=== PATIENT | male | born 1980 | race Caucasian/White ===

== ENCOUNTER 2023-01-02 09:18 | Outpatient (REF) | payer MEDICAID, SELFPAY ==
[2023-01-02 11:25] LABS: MANUAL DIFF FLAG NO
[2023-01-02 11:35] LABS: Basophils Absolute Auto 0.1 X10*3/uL (0.0-0.2); Basophils Percent Auto 0.7 % (0-2); Eosinophils Absolute Auto 0.2 X10*3/uL (0.0-0.4); Eosinophils Percent Auto 2.2 % (0-4); Hematocrit 41.7 % (42.0-52.0); Hemoglobin 14.1 g/dl (14.0-18.0); Imm Gran Abs Auto 0.03 X10*3/uL (0.00-0.03); Imm Gran Pct Auto 0.4 % (0.0-0.4); Lymphocytes Absolute Auto 2.9 X10*3/uL (1.2-4.9); Lymphocytes Percent Auto 40.4 % (20-40); Mean Corpuscular HGB Conc 33.8 g/dl (31.0-36.0); Mean Corpuscular Hemoglobin 31.4 pg (27.0-33.0); Mean Corpuscular Volume 92.9 fL (80.0-98.0); Mean Platelet Volume 10.8 fL (9.4-12.4); Monocytes Absolute Auto 0.5 X10*3/uL (0.1-1.2); Monocytes Percent Auto 6.6 % (2-11); Neutrophils Absolute Auto 3.6 x10*3/uL (2.0-8.3); Neutrophils Percent Auto 49.7 % (45-73); Platelet Count 224 X10*3/uL (160-400); Red Blood Count 4.49 X10*6/uL (4.60-5.80); Red Cell Distribution Width 12.6 % (11.0-16.0); White Blood Count 7.2 X10*3/uL (4.8-10.8)
[2023-01-02 12:03] LABS: Alanine Aminotransferase 36 U/L (0-40); Albumin Level 4.1 g/dL (3.5-5.0); Alkaline Phosphatase 91 U/L (39-117); Aspartate Amino Transferase 27 U/L (5-37); Bilirubin Direct 0.1 mg/dL (0.0-0.5); Bilirubin Total 0.3 mg/dL (0.0-1.0); Lipase 36 U/L (8-78); Total Protein 7.1 g/dL (6.5-8.0)
[2023-01-02 12:10] LABS: Amylase 49 U/L (28-100)
== END 2023-01-02 09:19 | disposition home or self-care (01) ==
LOC: HO.HHCL 09:18
PROVIDERS: Visit Provider Family Medicine
DX: Z00.00 Encounter for general adult medical examination without abnormal findings (principal)
CPT/HCPCS: 36415; 80076; 82150; 83690; 85025

== ENCOUNTER 2023-03-13 13:53 | Outpatient (REF) | payer MEDICAID, SELFPAY | END 2023-03-13 13:54 | disposition home or self-care (01) | LOC: HO.LNP 13:53 | PROVIDERS: Visit Provider Family Medicine | DX: R10.13 Epigastric pain (principal) | CPT/HCPCS: 87338 ==

== ENCOUNTER 2023-07-15 11:43 | Outpatient (REF) | payer MEDICAID, SELFPAY ==
[2023-07-15 13:27] LABS: MANUAL DIFF FLAG NO
[2023-07-15 13:33] LABS: Basophils Absolute Auto 0.1 X10*3/uL (0.0-0.2); Basophils Percent Auto 0.9 % (0-2); Eosinophils Absolute Auto 0.2 X10*3/uL (0.0-0.4); Eosinophils Percent Auto 2.8 % (0-4); Hematocrit 43.7 % (42.0-52.0); Hemoglobin 14.9 g/dl (14.0-18.0); Imm Gran Abs Auto 0.03 X10*3/uL (0.00-0.03); Imm Gran Pct Auto 0.4 % (0.0-0.4); Lymphocytes Absolute Auto 2.3 X10*3/uL (1.2-4.9); Lymphocytes Percent Auto 29.3 % (20-40); Mean Corpuscular HGB Conc 34.1 g/dl (31.0-36.0); Mean Corpuscular Hemoglobin 31.7 pg (27.0-33.0); Mean Platelet Volume 10.7 fL (9.4-12.4); Monocytes Absolute Auto 0.5 X10*3/uL (0.1-1.2); Monocytes Percent Auto 6.8 % (2-11); Neutrophils Absolute Auto 4.6 x10*3/uL (2.0-8.3); Neutrophils Percent Auto 59.8 % (45-73); Platelet Count 254 X10*3/uL (160-400); Red Cell Distribution Width 12.7 % (11.0-16.0); White Blood Count 7.8 X10*3/uL (4.8-10.8)
[2023-07-15 13:56] LABS: Estimated Average Glucose 111 mg/dL; Hemoglobin A1c % 5.5 % (<6.0)
[2023-07-15 14:13] LABS: Anion Gap 12 (12-20); Blood Urea Nitrogen 11 mg/dL (9-16); Calcium 8.8 mg/dL (8.4-10.2); Carbon Dioxide 27 mmol/L (22-29); Chloride 105 mmol/L (96-108); Estimated Glomerular Filt Rate > 60; Glucose Random 127 mg/dL (60-115); Potassium 3.9 mmol/L (3.3-5.1); Sodium 140 mmol/L (135-145)
[2023-07-15 14:18] LABS: TSH reflex Free T4 0.71 uIU/mL (0.32-4.0)
[2023-07-16 08:03] LABS: HIV AB/AG Nonreactive (Nonreactive); HIV Num 1 0.07 S/CO (0.00-0.99); ~HepC Num1 0.72 S/CO (0.00-0.79); ~Hepatitis C Antibody Nonreactive (Nonreactive)
== END 2023-07-15 11:44 | disposition home or self-care (01) ==
LOC: HO.HHCL 11:43
PROVIDERS: Visit Provider Internal Medicine
DX: Z00.00 Encounter for general adult medical examination without abnormal findings (principal)
CPT/HCPCS: 36415; 80048; 83036; 84443; 85025; 86803; 87389

== ENCOUNTER 2023-08-20 14:07 | Outpatient (REF) | payer MEDICAID, SELFPAY ==
[2023-08-20 19:23] LABS: Alanine Aminotransferase 51 U/L (0-40); Albumin Level 4.2 g/dL (3.5-5.0); Alkaline Phosphatase 103 U/L (39-117); Anion Gap 11 (12-20); Aspartate Amino Transferase 28 U/L (5-37); Bilirubin Direct < 0.2 mg/dL (0.0-0.5); Bilirubin Total 0.2 mg/dL (0.0-1.0); Blood Urea Nitrogen 12 mg/dL (9-16); Calcium 8.8 mg/dL (8.4-10.2); Carbon Dioxide 31 mmol/L (22-29); Chloride 104 mmol/L (96-108); Cholesterol 174 mg/dL (<200); Estimated Glomerular Filt Rate > 60; Glucose Random 112 mg/dL (60-115); HDL Cholesterol 32 mg/dL (>40); Sodium 142 mmol/L (135-145); Total Protein 7.5 g/dL (6.5-8.0); Triglycerides 481 mg/dL (<150)
== END 2023-08-20 14:08 | disposition home or self-care (01) ==
LOC: HO.HHCL 14:07
PROVIDERS: Visit Provider Internal Medicine
DX: Z00.00 Encounter for general adult medical examination without abnormal findings (principal); N17.9 Acute kidney failure, unspecified
CPT/HCPCS: 36415; 80048; 80061; 80076

== ENCOUNTER 2024-02-05 08:44 | Outpatient (AMB) | payer MEDICAID, SELFPAY ==
--- NOTE | 2024-02-05 08:55 | MHC.OFFVIS ---
Vital Signs 02/05/24 09:11 Height 5 ft 11 in Weight 234 lb 9.149 oz BMI 32.7 BP 136/78 Blood Pressure Location Lt brachial Position Sitting Pulse 76 Pulse Source Pulse Oximeter Pulse Oximetry (%) 98 Oxygen Delivery Method Room Air Intake Visit Reasons: Transfer of care from . Intake Note: Len presents in office today for a scheduled initial assessment. CC; Pt was referred for epigastric pain. Pt states that he has had the pain for a very long time . Pt reports the pain in the LUQ. Pt reports having severe reflux. Pt does notice certain trigger foods. Pt also reports recent ED Admission due to vomiting and diarrhea. Pt was seen at [facility]. Pt denies any previous hx of EGD. PCP had a ddx of gastritis. Pt was given gaviscon and zofran PRN. Pt has not had any relief with the attempted treatments to this point. Pt has had a distention or ball present in the LUQ as well. Kiln Burner Required: Yes Kiln Burner Name: [id number] Dexterjamie Information Interpreted: clinical only Accompanied by: Spouse Allergies avocado Allergy (Severe, Verified 02/05/24 09:13) Shortness of Breath Seasonal Allergies Allergy (Intermediate, Verified 02/05/24 09:13) Shortness of Breath kiwi Allergy (Unknown, Verified 02/05/24 09:13) Unknown peach Allergy (Unknown, Verified 02/05/24 09:13) Unknown HPI HPI Transfer of care from .: Details: 43-year-old male with past medical no significant past medical history is here today for consultation. Patient is accompanied by his . Patient reports that he was seen at [facility] ER and was diagnosed with gastritis. Patient was given nausea medicine as well as medication for acid reflux. Patient continues to have epigastric pain. Patient reports that he no longer has any medications left. Patient denies any nausea or vomiting. Patient reports left upper quadrant pain and distention. Patient denies any melena, hematochezia, unintentional weight loss or ribbon like stools. Patient reports dyspepsia without dysphagia or odynophagia. Patient reports to be eating large meals mostly [place] cooked food. Patient is not eating much of vegetables. Mostly meat and rice PFS Medical History (Updated 02/05/24 @ 09:15 by Lamont Bowman [facility]) Chronic back pain Asthma Family History (Updated 02/05/24 @ 09:09 by CASSI Holbrook) Father Kidney disease, chronic, end stage on dialysis Kidney transplant status Social History (Updated 02/05/24 @ 09:11 by CASSI Holbrook) Alcohol intake: never Patient Tobacco Use Status: Current someday Tobacco user Substance Use Type: Marijuana Review of Systems Const Denies weight gain and Denies weight loss ENT Reports no additional complaints, Denies dysphagia and Denies odynophagia Card Reports no additional complaints Resp Reports no additional complaints GI Reports abdominal pain, Denies belching, Denies melena, Reports bloating, Denies change in bowel habits, Denies dysphagia, Denies excessive flatus, Denies dyspepsia, Reports heartburn, Denies diarrhea, Reports loose stools, Reports nausea, Denies odynophagia and Denies vomiting Reports no additional complaints Musc Reports no additional complaints Neuro Reports no additional complaints Psych Reports no additional complaints Endo Reports no additional complaints Physical Exam Vital Signs: Last Vital Signs Pulse 76 02/05/24 09:11 BP 136/78 02/05/24 09:11 Pulse Ox 98 02/05/24 09:11 Oxygen Delivery Method Room Air 02/05/24 09:11 BMI result Body Mass Index 32.7 Const General: healthy appearing, no acute distress and well developed Nutritional Appearance: obese Orientation/consciousness: patient oriented x3 Resp Effort & Inspection: normal respiratory effort, able to speak in complete sentences, no tracheal deviation and symmetric chest movement Auscultation: clear to auscultation bilaterally Cardio Rate: regular rate GI Inspection: Yes normal to inspection, No distended and Yes obesity Palpation (GI): Soft to palpation, not firm, nontender and No hepatosplenomegaly present Auscultation: normal bowel sounds General: Yes no CVA tenderness Back/Spine/Pelvis Back: no CVA tenderness Skin General skin exam: elasticity normal, turgor normal and dry skin Neuro General: patient oriented x3 Psych Appearance: grossly normal Mental Status: mental status grossly normal Assessment & Plan Assessment & Plan (1) Postprandial abdominal pain in left upper quadrant: Code(s): R10.12 - Left upper quadrant pain (2) Postprandial epigastric pain: Code(s): R10.13 - Epigastric pain (3) GERD (gastroesophageal reflux disease): Code(s): K21.9 - Gastro-esophageal reflux disease without esophagitis Qualifiers: Esophagitis presence: esophagitis presence not specified Qualified Code(s): K21.9 - Gastro-esophageal reflux disease without esophagitis (4) Postprandial abdominal bloating: Code(s): R14.0 - Abdominal distension (gaseous) Plan Patient will take esomeprazole in the morning and sucralfate at bedtime. Avoid dietary triggers and late night snacking. Staying upright for minimum 3 hours after meals discussed with patient. Patient will also take start taking fiber. Reports postprandial loose stools. Denies feeling constipated. Patient will follow-up in 4 weeks to discuss going for upper endoscopy and possible colonoscopy. Patient will be due to go for colonoscopy as well. Both patient and his are agreeable to plan of care and verbalizes understanding of instructions. They were given the opportunity to ask questions and all questions answered. Thank you for allowing me to participate in his care Medications: New methylcellulose (laxative) (Citrucel) take it with full glass of water 500 mg PO DAILY 30 tabs 2RF K59.00 - Constipation, unspecified sucralfate 1 g PO BEDTIME 30 tabs 4RF R19.7 - Diarrhea, unspecified esomeprazole magnesium (Nexium) 40 mg PO DAILY 30 caps 5RF K21.9 - Gastro-esophageal reflux disease without esophagitis Coding Level of Care Code New Pt Level 4 (41637) Diagnoses Postprandial abdominal pain in left upper quadrant R10.12 Postprandial epigastric pain R10.13 Gastroesophageal reflux disease, unspecified whether esophagitis present K21.9 Esophagitis presence: esophagitis presence not specified Postprandial abdominal bloating R14.0 Time Spent (min) 45 Comment 30 minutes spent with patient and additional 15 minutes spent reviewing his records
[2024-02-05 09:11] VITALS: BP 136/78; PULSE 76; O2SAT 98; BMI 32.7
== END 2024-02-05 10:03 | disposition home or self-care (01) ==
PROVIDERS: Visit Provider Nurse Practitioner Family
DX: R10.12 Left upper quadrant pain (principal); R10.13 Epigastric pain; K21.9 Gastro-esophageal reflux disease without esophagitis; R14.0 Abdominal distension (gaseous)
CPT/HCPCS: 99204

== ENCOUNTER → 2024-02-05 08:44 | Outpatient (BNVA) | payer MEDICAID, SELFPAY | PROVIDERS: Visit Provider Nurse Practitioner Family | DX: R10.12 Left upper quadrant pain (principal); R10.13 Epigastric pain; K21.9 Gastro-esophageal reflux disease without esophagitis; R14.0 Abdominal distension (gaseous) | CPT/HCPCS: 99212 ==

== ENCOUNTER 2024-02-25 09:11 | Outpatient (AMB) | payer MEDICAID, SELFPAY ==
[2024-02-25 09:20] VITALS: BP 140/86; PULSE 94; O2SAT 97; BMI 32.6
--- NOTE | 2024-02-25 09:20 | A.OFFVIS_ITS ---
Vital Signs 02/25/24 09:20 Height 5 ft 11 in Weight 233 lb 11.04 oz BMI 32.6 BP 140/86 H Blood Pressure Location Lt brachial Position Sitting Pulse 94 Pulse Source Pulse Oximeter Pulse Oximetry (%) 97 Oxygen Delivery Method Room Air Intake Visit Reasons: 4 wks f/u Constipation Intake Note: Len presents in office today for a scheduled 4 week FUV. CC: Pt was rx'd citrucel, esomeprazole, and sucralfate at their last visit. No lab orders were placed at the last visit. Pt reports that he has been doing better since the last visit; however, he is still experiencing pain in the LUQ which seems to be most noticeable when he is laying in bed. Pt reports that he has not been using the citrucel or sucralfate as much because he had been going to the bathroom too much. Pt has been using the esomeprazole consistently however and has been noticing relief. Pt does report that he has been trying to increase his fluid intake since starting the medications as well, which he has noticed has been somewhat helpful as well. Pt states that he is currently experiencing RUQ pain. He states that this pain is intermittent. Pt has also been experiencing asthma exacerbation lately due to weather and seasonal changes. Sales Support Technician Required: No Allergies avocado Allergy (Severe, Verified 02/25/24 09:28) Shortness of Breath Seasonal Allergies Allergy (Intermediate, Verified 02/25/24 09:28) Shortness of Breath kiwi Allergy (Unknown, Verified 02/25/24 09:28) Unknown peach Allergy (Unknown, Verified 02/25/24 09:28) Unknown HPI HPI 4 wks f/u Constipation : Details: LAST VISIT: Postprandial abdominal pain in left upper quadrant Postprandial epigastric pain GERD (gastroesophageal reflux disease) Postprandial abdominal bloating Plan Patient will take esomeprazole in the morning and sucralfate at bedtime. Avoid dietary triggers and late night snacking. Staying upright for minimum 3 hours after meals discussed with patient. Patient will also take start taking fiber. Reports postprandial loose stools. Denies feeling constipated. Patient will follow-up in 4 weeks to discuss going for upper endoscopy and possible colonoscopy. Patient will be due to go for colonoscopy as well. Both patient and his are agreeable to plan of care and verbalizes understanding of instructions. They were given the opportunity to ask questions and all questions answered. ? Thank you for allowing me to participate in his care Medications New methylcellulose (laxative) (Citrucel) take it with full glass of water 500 mg PO DAILY 30 tabs 2RF K59.00 sucralfate 1 g PO BEDTIME 30 tabs 4RF R19.7 esomeprazole magnesium (Nexium) 40 mg PO DAILY 30 caps 5RF K21.9 TODAY'S VISIT Patient is here today for follow-up. Patient reports that acid reflux better. Takes Nexium and sucralfate and his symptoms are suppressed for the most part. Patient no longer is taking Citrucel. Reports that he is moving his bowels better now. Patient just turned 44 and is also due for colonoscopy. Patient denies any family history of CRC. Patient reports that he never had anesthesia in the past. No history of sleep apnea. Not on any anticoagulation medication. Patient denies any melena, hematochezia, unintentional weight loss or ribbon like stools. Patient denies any dyspepsia, dysphagia or odynophagia. No history of infectious diseases in the past or present. Patient reports that he has significant asthma, uses his rescue inhalers and still continues to have trouble breathing. States that symptoms are worse at night. Currently patient is feeling worse, cold symptoms as well. REPLACED BY [facility] Medical History Chronic back pain Asthma Family History Father Kidney disease, chronic, end stage on dialysis Kidney transplant status Social History Alcohol intake: never Patient Tobacco Use Status: Current someday Tobacco user Substance Use Type: Marijuana Review of Systems Const Denies weight gain and Denies weight loss ENT Reports no additional complaints, Denies dysphagia and Denies odynophagia Card Reports no additional complaints Resp Reports wheezing GI Denies abdominal pain, Denies belching, Denies melena, Denies bloating, Denies change in bowel habits, Denies dysphagia, Denies excessive flatus, Denies dyspepsia, Denies heartburn, Denies diarrhea, Denies loose stools, Denies nausea, Denies odynophagia and Denies vomiting Reports no additional complaints Musc Reports no additional complaints Neuro Reports no additional complaints Psych Reports no additional complaints Endo Reports no additional complaints Aller/Immun Reports wheezing Physical Exam Vital Signs: Last Vital Signs Pulse 94 02/25/24 09:20 BP 140/86 H 02/25/24 09:20 Pulse Ox 97 02/25/24 09:20 Oxygen Delivery Method Room Air 02/25/24 09:20 BMI result Body Mass Index 32.6 Const General: healthy appearing, no acute distress and well developed Nutritional Appearance: obese Orientation/consciousness: patient oriented x3 Resp Effort & Inspection: normal respiratory effort, able to speak in complete sentences, no tracheal deviation and symmetric chest movement Auscultation: wheezes expiratory wheezes and throughout Cardio Rate: regular rate GI Inspection: Yes normal to inspection, No distended and Yes obesity Palpation (GI): Soft to palpation, not firm, nontender and No hepatosplenomegaly present Auscultation: normal bowel sounds General: Yes no CVA tenderness Back/Spine/Pelvis Back: no CVA tenderness Skin General skin exam: elasticity normal, turgor normal and dry skin Neuro General: patient oriented x3 Psych Appearance: grossly normal Mental Status: mental status grossly normal Assessment & Plan Assessment & Plan (1) Postprandial abdominal pain in left upper quadrant: Code(s): R10.12 - Left upper quadrant pain (2) Postprandial epigastric pain: Code(s): R10.13 - Epigastric pain (3) GERD (gastroesophageal reflux disease): Code(s): K21.9 - Gastro-esophageal reflux disease without esophagitis Qualifiers: Esophagitis presence: esophagitis presence not specified Qualified Code(s): K21.9 - Gastro-esophageal reflux disease without esophagitis (4) Postprandial abdominal bloating: Code(s): R14.0 - Abdominal distension (gaseous) (5) Screen for colon cancer: Code(s): Z12.11 - Encounter for screening for malignant neoplasm of colon (6) Asthma: Code(s): J45.909 - Unspecified asthma, uncomplicated Qualifiers: Asthma complication type: unspecified Asthma persistence: unspecified Asthma severity: unspecified severity Qualified Code(s): J45.909 - Unspecified asthma, uncomplicated Plan Patient reports wheezing. He is not taking any corticosteroid inhalers. On rescue albuterol. Will send patient to pulmonology for PFT. Patient will be sent to go for upper endoscopy symptoms of acid reflux better, however occasionally he will have breakthrough symptoms. Due for colonoscopy. No family history of CRC. No issues with anesthesia in the past. No history of sleep apnea. Not on any anticoagulation medication. What to expect before during and after procedure discussed with patient. Stressed the importance of good bowel prep and clear liquid diet. I will see patient after the procedure, sooner on as needed basis. He is agreeable to this plan and verbalizes understanding of instructions. He was given the opportunity to ask questions and all questions answered. Thank you for allowing me to participate in his care Orders: Referrals Pulmonology Referral J45.909 - Unspecified asthma, uncomplicated Medications: New bisacodyl (Dulcolax (bisacodyl)) take 4 tabs at noon the day before your colonoscopy 20 mg (4 x 5 mg) PO ONCE 1 day 4 tabs 0RF Z12.11 - Encounter for screening for malignant neoplasm of colon polyethylene glycol 3350 (Miralax) As directed by gastroenterology department at [facility] 238 grams PO ONCE 238 grams 0RF Z12.11 - Encounter for screening for malignant neoplasm of colon Coding Level of Care Code Est Pt Level 4 (57669) Diagnoses Postprandial abdominal pain in left upper quadrant R10.12 Postprandial epigastric pain R10.13 Gastroesophageal reflux disease, unspecified whether esophagitis present K21.9 Esophagitis presence: esophagitis presence not specified Postprandial abdominal bloating R14.0 Screen for colon cancer Z12.11 Asthma, unspecified asthma severity, unspecified whether complicated, unspecified whether persistent J45.909 Asthma complication type: unspecified Asthma persistence: unspecified Asthma severity: unspecified severity Time Spent (min) 35 Comment 25 minutes spent with patient and additional 10 minutes spent reviewing his records
== END 2024-02-25 10:06 | disposition home or self-care (01) ==
PROVIDERS: Visit Provider Nurse Practitioner Family
DX: R10.12 Left upper quadrant pain (principal); R10.13 Epigastric pain; K21.9 Gastro-esophageal reflux disease without esophagitis; R14.0 Abdominal distension (gaseous); Z12.11 Encounter for screening for malignant neoplasm of colon; J45.909 Unspecified asthma, uncomplicated
CPT/HCPCS: 99214

== ENCOUNTER → 2024-02-25 09:11 | Outpatient (BNVA) | payer MEDICAID, SELFPAY | PROVIDERS: Visit Provider Nurse Practitioner Family | DX: Z12.11 Encounter for screening for malignant neoplasm of colon (principal); K21.9 Gastro-esophageal reflux disease without esophagitis; R14.0 Abdominal distension (gaseous); R10.12 Left upper quadrant pain; R10.13 Epigastric pain; J45.909 Unspecified asthma, uncomplicated | CPT/HCPCS: 99212 ==

== ENCOUNTER 2024-03-17 14:31 | Outpatient (AMB) | payer MEDICAID, SELFPAY ==
--- NOTE | 2024-03-17 14:32 | A.OFFVIS_ITS ---
Vital Signs 03/17/24 14:34 Height 5 ft 11 in Weight 242 lb 2 oz BMI 33.8 BP 124/78 Blood Pressure Location Rt brachial Position Sitting Pulse 75 Pulse Source Pulse Oximeter Pulse Oximetry (%) 98 Oxygen Delivery Method Room Air Intake Visit Reasons: Asthma Dedicated Owner Operator Required: Yes Dedicated Owner Operator Language: Learning Support Teacher Services: Dedicated Owner Operator Present Dedicated Owner Operator Name: Iraida Sinha OA Allergies avocado Allergy (Severe, Verified 03/17/24 14:37) Shortness of Breath Seasonal Allergies Allergy (Intermediate, Verified 03/17/24 14:37) Shortness of Breath kiwi Allergy (Unknown, Verified 03/17/24 14:37) Unknown peach Allergy (Unknown, Verified 03/17/24 14:37) Unknown HPI HPI Asthma: Details: Len is a pleasant 44 year old male with underlying asthma since childhood, never requiring intubation. He does report occasional marijuana, minimal tobacco smoker. He was referred by GI for pulmonary evaluation for increased asthma symptoms. He has been maintained on albuterol using frequently with good effect. He reports more noticeable dyspnea on exertion, wheezing and dry cough. He reports seasonal allergies and multiple pets at home including 5 dogs, 3 cats, 4 parakeets and 1 turtle. He denies recent allergy testing. 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 He reports multiple first degree family members with asthma/allergies. Of note, patient reports midsernal chest pain on two separate occasions this past month the last yesterday with worsening dyspnea. Denies BLE edema, erythema or pain. Denies prior h/o DVT/PE. Denies cardiac history. [facility] Medical History (Updated 03/17/24 @ 16:20 by Anna Mitchell NP) Chronic back pain Asthma Family History Father Kidney disease, chronic, end stage on dialysis Kidney transplant status Social History Alcohol intake: never Patient Tobacco Use Status: Current someday Tobacco user Substance Use Type: Marijuana Review of Systems Const Denies chills, Denies excessive sweating, Denies fever(s), Denies headache(s) and Denies night sweats Eyes Denies dry eyes, Denies irritation and Denies itchy eyes ENT Reports Normal hearing present, Denies headache(s), Denies nasal congestion, Denies nasal discharge, Denies post nasal drip and Denies sore throat Card Denies claudication, Denies leg edema, Denies orthopnea and Denies paroxysmal nocturnal dyspnea Resp Denies chest congestion, Denies excessive phlegm production, Denies pain on inspiration, Denies pain with cough and Denies stridor Musc Denies myalgias Neuro Reports Normal hearing present and Denies headache(s) Endo Denies excessive sweating Margarito/Lymph Denies lymphadenopathy Aller/Immun Denies itchy eyes and Denies seasonal rhinorrhea Physical Exam Vital Signs: Last Vital Signs Pulse 75 03/17/24 14:34 BP 124/78 03/17/24 14:34 Pulse Ox 98 03/17/24 14:34 Oxygen Delivery Method Room Air 03/17/24 14:34 BMI result Body Mass Index 33.8 Const General: cooperative, healthy appearing, comfortable, no acute distress, well developed and alert Nutritional Appearance: obese Orientation/consciousness: patient oriented x3 Limitations: no limitations HEENT Head: Yes normal to inspection, Yes normocephalic and Yes atraumatic Ears: hearing grossly normal bilaterally and external ears normal Eyes General: appearance normal, both eyes and all related structures Eyelids: Yes eyelids normal Sclerae: sclerae normal EOM: EOMs intact bilaterally Neck Neck: Yes normal visual inspection and Yes no lymphadenopathy Lymphatic: no lymphadenopathy noted Chest Chest palpation & inspection: normal inspection of the chest Resp Effort & Inspection: normal respiratory effort, able to speak in complete sentences, no audible wheezes, no cough, no stridor, not tachypneic, no tripod positioning and no use of accessory muscles Auscultation: clear to auscultation bilaterally Cardio Jugular venous distension: no JVD Rate: regular rate Rhythm: regular rhythm Skin Other: warm, dry General skin exam: no rashes or lesions noted Neuro General: patient oriented x3 Cranial nerves: Yes Normal hearing present Cognition (Neuro): normal cognition Gait exam (Neuro): Normal gait present Extrem General: Yes normal to inspection, Yes capillary refill normal, Yes no clubbing, cyanosis or edema and Yes no pedal edema Psych Appearance: grossly normal and well kempt Speech and movement: Normal speech and movement present and Clear speech present Affect: normal affect Attitude: cooperative Thought process: Normal thought process present Thought content: Normal thought content present Insight: Good insight present (Psych) Judgement: Good judgement present (Psych) Assessment & Plan Assessment & Plan (1) Asthma: Code(s): J45.909 - Unspecified asthma, uncomplicated Category: Medical (2) Cough: Code(s): R05.9 - Cough, unspecified Category: Medical (3) Chest pain: Code(s): R07.9 - Chest pain, unspecified Category: Medical (4) Environmental allergies: Code(s): Z91.09 - Other allergy status, other than to drugs and biological substances Category: Medical Plan Len's symptoms are likely related to underlying asthma with an allergic component. There may also be underlying reflux contributing to symptoms. Will send for PFT and RAST. Will also empirically trial ICS/LABA. Discussed importance of good oral hygiene to prevent thrush. Patient notes new onset chest pain, low likelihood for PE however will send for Ddimer, CXR and EKG. He is aware if symptoms persist to seek emergent care. All questions were answered and patient is in agreement of plan. Will follow up in 6-8 weeks or sooner if needed. Orders: Orders Immunoglobulin E Today Z91.09 - Other allergy status, other than to drugs and biological substances D Dimer High Sensitivity Today R07.9 - Chest pain, unspecified ECG 12 lead EKG Today R07.9 - Chest pain, unspecified Complete Blood Count Auto Diff Today Z91.09 - Other allergy status, other than to drugs and biological substances Resp Allergy Profile Region I Today Z91.09 - Other allergy status, other than to drugs and biological substances XR chest 2V Today R05.9 - Cough, unspecified Medications: New fluticasone furoate-vilanterol 100-25 mcg/dose (Breo Ellipta) 1 inh inhalation DAILY 60 ea 6RF Coding Level of Care Code New Pt Level 4 (42959) Diagnoses Asthma J45.909 Cough R05.9 Chest pain R07.9 Environmental allergies Z91.09
[2024-03-17 14:34] VITALS: BP 124/78; PULSE 75; O2SAT 98; BMI 33.8
== END 2024-03-17 15:00 | disposition home or self-care (01) ==
LOC: HO.HPSW 14:31
PROVIDERS: PCP Internal Medicine; Referring Provider Nurse Practitioner Family; Visit Provider Nurse Practitioner Family
DX: J45.909 Unspecified asthma, uncomplicated (principal); R05.9 Cough, unspecified; R07.9 Chest pain, unspecified; Z91.09 Other allergy status, other than to drugs and biological substances
CPT/HCPCS: 99204

== ENCOUNTER → 2024-03-17 14:31 | Outpatient (BNVA) | payer MEDICAID, SELFPAY | PROVIDERS: Referring Provider Nurse Practitioner Family; Visit Provider Nurse Practitioner Family | DX: J45.909 Unspecified asthma, uncomplicated (principal); R05.9 Cough, unspecified; R07.9 Chest pain, unspecified; F17.210 Nicotine dependence, cigarettes, uncomplicated; Z91.09 Other allergy status, other than to drugs and biological substances | CPT/HCPCS: 99212 ==

== ENCOUNTER 2024-03-17 15:04 | Outpatient (REF) | payer MEDICAID, SELFPAY ==
[2024-03-17 17:55] LABS: MANUAL DIFF FLAG NO
[2024-03-17 18:03] LABS: Basophils Absolute Auto 0.1 X10*3/uL (0.0-0.2); Basophils Percent Auto 0.6 % (0-2); Eosinophils Absolute Auto 0.2 X10*3/uL (0.0-0.4); Eosinophils Percent Auto 2.6 % (0-4); Hematocrit 44.9 % (42.0-52.0); Imm Gran Abs Auto 0.03 X10*3/uL (0.00-0.03); Imm Gran Pct Auto 0.4 % (0.0-0.4); Lymphocytes Absolute Auto 2.9 X10*3/uL (1.2-4.9); Lymphocytes Percent Auto 35.6 % (20-40); Mean Corpuscular HGB Conc 33.4 g/dl (31.0-36.0); Mean Corpuscular Hemoglobin 31.6 pg (27.0-33.0); Mean Corpuscular Volume 94.5 fL (80.0-98.0); Mean Platelet Volume 10.8 fL (9.4-12.4); Monocytes Absolute Auto 0.6 X10*3/uL (0.1-1.2); Monocytes Percent Auto 6.8 % (2-11); Neutrophils Absolute Auto 4.4 x10*3/uL (2.0-8.3); Platelet Count 296 X10*3/uL (160-400); Red Blood Count 4.75 X10*6/uL (4.60-5.80); Red Cell Distribution Width 12.6 % (11.0-16.0); White Blood Count 8.2 X10*3/uL (4.8-10.8)
[2024-03-17 18:40] LABS: D Dimer High Sensitivity < 150 NG/ML
[2024-03-19 22:53] LABS: Class Alternaria alternata 0; Class Aspergillus fumigatus 0; Class Bermuda Grass 0/1; Class Birch 4; Class Cat Dander 2; Class Cladosporium herbarum 0; Class Cockroach 0; Class Common Ragweed 2; Class Cottonwood 0; Class Derm. pterony 0; Class Dermatophagoides farinae 0; Class Dog Dander 2; Class Elm 2; Class Maple Box Elder 0/1; Class Mountain Cedar 0; Class Mouse Urine Protein 0; Class Mugwort 0; Class Oak 4; Class Penicillium crysogenum 0; Class Rough Pigweed 0/1; Class Sheep Sorrel 0; Class Sycamore 0/1; Class Timothy Grass 0; Class Walnut Tree 2; Class White Ash 0/1; Class White Mulberry 0; D001 IgE D pteronyssinus <0.10 kU/L; D002 - IgE D farinae <0.10 kU/L; E001 - IgE Cat Dander 0.96 kU/L; E005 - IgE Dog Dander 2.15 kU/L; E072-IgE Mouse Urine <0.10 kU/L; G002 IgE Bermuda Grass 0.12 kU/L; G006 - IgE Timothy Grass <0.10 kU/L; I006-IgE Cockroach, German <0.10 kU/L; Immunoglobulin E 176 kU/L (<OR=114); M001 IgE Penicillium chrysogen <0.10 kU/L; M002 - IgE Cladosporium herbar <0.10 kU/L; M003 - IgE Aspergillus fumigat <0.10 kU/L; M006 - IgE Alternaria alternat <0.10 kU/L; T001 IgE Maple/Box Elder 0.33 kU/L; T006 - IgE Cedar, Mountain <0.10 kU/L; T008 IgE Elm, American 1.51 kU/L; T010 - IgE Walnut 0.97 kU/L; T011 - IgE Maple Leaf Sycamore 0.24 kU/L; T014 - IgE Cottonwood <0.10 kU/L; T015 - IgE Ash, White 0.14 kU/L; T070 - IgE White Mulberry <0.10 kU/L; W001 - IgE Ragweed, Short 0.81 kU/L; W006 - IgE Mugwort <0.10 kU/L; W014 IgE Pigweed, Common 0.33 kU/L; W018 IgE Sheep Sorrel <0.10 kU/L
== END 2024-03-17 15:05 | disposition home or self-care (01) ==
LOC: HO.WFDLDS 15:04
PROVIDERS: Visit Provider Nurse Practitioner Family
DX: Z91.09 Other allergy status, other than to drugs and biological substances (principal); R07.9 Chest pain, unspecified
CPT/HCPCS: 36415; 82785; 85025; 85379; 86003

== ENCOUNTER 2024-04-28 14:33 | Outpatient (AMB) | payer MEDICAID, SELFPAY ==
[2024-04-28 14:47] VITALS: BP 134/88; PULSE 95; O2SAT 97; BMI 33.6
--- NOTE | 2024-04-28 14:47 | A.OFFVIS_ITS ---
Vital Signs 04/28/24 14:47 Height 5 ft 11 in Weight 241 lb 2 oz BMI 33.6 BP 134/88 Blood Pressure Location Lt brachial Position Sitting Pulse 95 Pulse Source Pulse Oximeter Pulse Oximetry (%) 97 Oxygen Delivery Method Room Air Intake Visit Reasons: Asthma Allergies avocado Allergy (Severe, Verified 04/28/24 14:51) Shortness of Breath Seasonal Allergies Allergy (Intermediate, Verified 04/28/24 14:51) Shortness of Breath kiwi Allergy (Unknown, Verified 04/28/24 14:51) Unknown peach Allergy (Unknown, Verified 04/28/24 14:51) Unknown HPI HPI Asthma: Details: Len is a pleasant 44 year old male with underlying asthma since childhood and allergic rhinitis. He does report occasional marijuana, minimal tobacco smoker. At the last visit he was started on Breo 100 mcg with suboptimal effect. He reports seasonal allergies and multiple pets at home including 5 dogs, 3 cats, 4 parakeets and 1 turtle. He denies recent allergy testing. 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 He presents to review RAST, awaiting PFT to be scheduled. Today he presents with worsening respiratory symptoms for the last three days with increased wheezing, dyspnea, chest tightness and dry cough. [facility] Medical History (Updated 03/17/24 @ 16:20 by Anna Mitchell NP) Chronic back pain Asthma Family History Father Kidney disease, chronic, end stage on dialysis Kidney transplant status Social History Alcohol intake: never Patient Tobacco Use Status: Current someday Tobacco user Substance Use Type: Marijuana Review of Systems Const Denies chills, Denies excessive sweating, Denies fever(s), Denies headache(s) and Denies night sweats Eyes Denies dry eyes, Denies irritation and Denies itchy eyes ENT Reports Normal hearing present, Denies headache(s), Denies nasal congestion, Denies nasal discharge, Denies post nasal drip and Denies sore throat Card Denies claudication, Denies leg edema, Reports dyspnea on exertion, Denies orthopnea and Denies paroxysmal nocturnal dyspnea Resp Denies chest congestion, Reports cough, Denies excessive phlegm production, Denies pain on inspiration, Denies pain with cough, Reports dyspnea on exertion, Denies stridor and Reports wheezing Musc Denies myalgias Neuro Reports Normal hearing present and Denies headache(s) Endo Denies excessive sweating Margarito/Lymph Denies lymphadenopathy Aller/Immun Denies itchy eyes, Denies seasonal rhinorrhea and Reports wheezing Physical Exam Vital Signs: Last Vital Signs Pulse 95 04/28/24 14:47 BP 134/88 04/28/24 14:47 Pulse Ox 97 04/28/24 14:47 Oxygen Delivery Method Room Air 04/28/24 14:47 BMI result Body Mass Index 33.6 Const General: cooperative, healthy appearing, comfortable, no acute distress, well developed and alert Nutritional Appearance: obese Orientation/consciousness: patient oriented x3 Limitations: no limitations HEENT Head: Yes normal to inspection, Yes normocephalic and Yes atraumatic Ears: hearing grossly normal bilaterally and external ears normal Eyes General: appearance normal, both eyes and all related structures Eyelids: Yes eyelids normal Sclerae: sclerae normal EOM: EOMs intact bilaterally Neck Neck: Yes normal visual inspection and Yes no lymphadenopathy Lymphatic: no lymphadenopathy noted Chest Chest palpation & inspection: normal inspection of the chest Resp Effort & Inspection: normal respiratory effort, able to speak in complete sentences, audible wheezes, no cough, no stridor, not tachypneic, no tripod positioning and no use of accessory muscles Auscultation: wheezes expiratory wheezes and throughout Cardio Jugular venous distension: no JVD Rate: regular rate Rhythm: regular rhythm Skin Other: warm, dry General skin exam: no rashes or lesions noted Neuro General: patient oriented x3 Cranial nerves: Yes Normal hearing present Cognition (Neuro): normal cognition Gait exam (Neuro): Normal gait present Extrem General: Yes normal to inspection, Yes capillary refill normal, Yes no clubbing, cyanosis or edema and Yes no pedal edema Psych Appearance: grossly normal and well kempt Speech and movement: Normal speech and movement present and Clear speech present Affect: normal affect Attitude: cooperative Thought process: Normal thought process present Thought content: Normal thought content present Insight: Good insight present (Psych) Judgement: Good judgement present (Psych) Office Procedures Nebulizer Treatment Nebulizer Treatment [id number]/MDI RX initial, or Nebulizer Subsequent Treatment Office Meds ipratropium 0.5 mg-albuterol 3 mg (2.5 mg base)/3 mL nebulization soln Performing Provider: Anna Mitchell NP Performing Location[place] [facility] Administered by: Madhavi Cha LPN on 04/28/24 15:09 Dose Route Admin Location Dispensed Lot Number Expiration Date NDC Control Officer Manager 3 mL inhalation 3 mL [id number] 08/17/25 51599-889-37 [employer] Assessment & Plan Assessment & Plan (1) Asthma: Code(s): J45.909 - Unspecified asthma, uncomplicated Category: Medical (2) Cough: Code(s): R05.9 - Cough, unspecified Category: Medical (3) Environmental allergies: Code(s): Z91.09 - Other allergy status, other than to drugs and biological substances Category: Medical Plan Len presents today for a 3 day history of worsening asthma symptoms, minimally improved with nebulizer an office. Will treat with prednisone. He is aware of symptoms do not improve to call office and have worsened to seek [facility] care. Will increase Breo and give nebulizer for home use with DuoNeb to use p.r.n.. RAST positive for multiple allergens discussed ways to minimize allergen exposures and will trial Singulair. All questions were answered and patient is in agreement of plan. Will follow up in 4 weeks or sooner if needed. Orders: Orders AMB Nebulizer Treatment Today J45.909 - Unspecified asthma, uncomplicated, R05.9 - Cough, unspecified Medications: New prednisone 40 mg x 5 days, 20 mg x 5 days 40 mg (2 x 20 mg) PO DAILY 15 tabs 0RF fluticasone furoate-vilanterol 200-25 mcg/dose (Breo Ellipta) 1 inh inhalation DAILY 60 ea 6RF ipratropium-albuterol 0.5 mg-3 mg(2.5 mg base)/3 mL 3 mL inhalation Q6H PRN 180 mL 3RF wheezing montelukast (Singulair) 10 mg PO BEDTIME 30 tabs 11RF Coding Level of Care Code Est Pt Level 4 (62970) Diagnoses Asthma J45.909 Cough R05.9 Environmental allergies Z91.09 CPT Codes Nebulizer Treatment - Nebulizer Treatment, initial or subsequent: 91018- Nebulizer/MDI RX initial, or Nebulizer Subsequent Treatment ([id number])
== END 2024-04-28 15:25 | disposition home or self-care (01) ==
PROVIDERS: PCP Internal Medicine; Visit Provider Nurse Practitioner Family
DX: J45.909 Unspecified asthma, uncomplicated (principal); R05.9 Cough, unspecified; Z91.09 Other allergy status, other than to drugs and biological substances
CPT/HCPCS: 99214

== ENCOUNTER → 2024-04-28 14:33 | Outpatient (BNVA) | payer MEDICAID, SELFPAY | PROVIDERS: PCP Internal Medicine; Visit Provider Nurse Practitioner Family | DX: J45.909 Unspecified asthma, uncomplicated (principal); Z91.09 Other allergy status, other than to drugs and biological substances; R05.9 Cough, unspecified | CPT/HCPCS: 94640; 99212 ==

== ENCOUNTER 2024-05-26 14:55 | Outpatient (AMB) | payer MEDICAID, SELFPAY ==
[2024-05-26 15:04] VITALS: PULSE 98; O2SAT 98; BMI 34.3
--- NOTE | 2024-05-26 15:04 | MHC.OFFVIS ---
Vital Signs 05/26/24 15:04 Height 5 ft 11 in Weight 246 lb BMI 34.3 Pulse 98 Pulse Source Pulse Oximeter Pulse Oximetry (%) 98 Oxygen Delivery Method Room Air Intake Visit Reasons: Asthma Fur Grader Required: No Loin Trimmer: Loin Trimmer offered & declined Accompanied by: Family/Other Allergies avocado Allergy (Severe, Verified 05/26/24 15:09) Shortness of Breath Seasonal Allergies Allergy (Intermediate, Verified 05/26/24 15:09) Shortness of Breath kiwi Allergy (Unknown, Verified 05/26/24 15:09) Unknown peach Allergy (Unknown, Verified 05/26/24 15:09) Unknown Medication List - Last Reconciled 05/26/24 by Madhavi Cha LPN albuterol 90 mcg/actuation mcg inhalation bisacodyl (Dulcolax (bisacodyl)) 20 mg (4 x 5 mg) PO ONCE 1 day esomeprazole magnesium (Nexium) 40 mg PO DAILY fluticasone furoate-vilanterol 100-25 mcg/dose (Breo Ellipta) 1 inh inhalation DAILY fluticasone furoate-vilanterol 200-25 mcg/dose (Breo Ellipta) 1 inh inhalation DAILY ipratropium-albuterol 0.5 mg-3 mg(2.5 mg base)/3 mL 3 mL inhalation Q6H PRN methylcellulose (laxative) (Citrucel) 500 mg PO DAILY montelukast (Singulair) 10 mg PO BEDTIME polyethylene glycol 3350 (Miralax) 238 grams PO ONCE prednisone 40 mg (2 x 20 mg) PO DAILY sucralfate 1 g PO BEDTIME tramadol 25 mg PO Q6H PRN HPI HPI Asthma: Details: Len is a pleasant 44 year old male with underlying asthma since childhood and allergic rhinitis. He does report occasional marijuana, minimal tobacco smoker. At the last visit he was started on Breo 100 mcg with suboptimal effect and switched to Breo 200 mcg as well as Singulair. He was also treated with prednisone for an exacerbation. He reports significant improvements in respiratory symptoms. He denies any cough, wheezing, dyspnea or chest tightness. He has not requiring albuterol MDI/DuoNeb. He denies any visits to urgent care or hospitalizations since the last visit. [facility] Medical History (Updated 03/17/24 @ 16:20 by Anna Mitchell NP) Chronic back pain Asthma Family History Father Kidney disease, chronic, end stage on dialysis Kidney transplant status Social History Alcohol intake: never Patient Tobacco Use Status: Current someday Tobacco user Substance Use Type: Marijuana Review of Systems Const Denies chills, Denies excessive sweating, Denies fever(s), Denies headache(s) and Denies night sweats Eyes Denies dry eyes, Denies irritation and Denies itchy eyes ENT Reports Normal hearing present, Denies headache(s), Denies nasal congestion, Denies nasal discharge, Denies post nasal drip and Denies sore throat Card Denies chest pain, Denies chest pain at rest, Denies chest pain with activity, Denies claudication, Denies leg edema, Denies dyspnea, Denies dyspnea on exertion, Denies orthopnea and Denies paroxysmal nocturnal dyspnea Resp Denies chest congestion, Denies cough, Denies excessive phlegm production, Denies pain on inspiration, Denies pain with cough, Denies dyspnea, Denies dyspnea on exertion, Denies stridor and Denies wheezing Musc Denies myalgias Neuro Reports Normal hearing present and Denies headache(s) Endo Denies excessive sweating Margarito/Lymph Denies lymphadenopathy Aller/Immun Denies itchy eyes, Denies seasonal rhinorrhea and Denies wheezing Physical Exam Vital Signs: Last Vital Signs Pulse 98 05/26/24 15:04 Pulse Ox 98 05/26/24 15:04 Oxygen Delivery Method Room Air 05/26/24 15:04 BMI result Body Mass Index 34.3 Const General: cooperative, healthy appearing, comfortable, no acute distress, well developed and alert Nutritional Appearance: obese Orientation/consciousness: patient oriented x3 Limitations: no limitations HEENT Head: Yes normal to inspection, Yes normocephalic and Yes atraumatic Ears: hearing grossly normal bilaterally and external ears normal Eyes General: appearance normal, both eyes and all related structures Eyelids: Yes eyelids normal Sclerae: sclerae normal EOM: EOMs intact bilaterally Neck Neck: Yes normal visual inspection and Yes no lymphadenopathy Lymphatic: no lymphadenopathy noted Chest Chest palpation & inspection: normal inspection of the chest Resp Effort & Inspection: normal respiratory effort, able to speak in complete sentences, no audible wheezes, no cough, no stridor, not tachypneic, no tripod positioning and no use of accessory muscles Auscultation: clear to auscultation bilaterally Cardio Jugular venous distension: no JVD Rate: regular rate Rhythm: regular rhythm Skin Other: warm, dry General skin exam: no rashes or lesions noted Neuro General: patient oriented x3 Cranial nerves: Yes Normal hearing present Cognition (Neuro): normal cognition Gait exam (Neuro): Normal gait present Extrem General: Yes normal to inspection, Yes capillary refill normal, Yes no clubbing, cyanosis or edema and Yes no pedal edema Psych Appearance: grossly normal and well kempt Speech and movement: Normal speech and movement present and Clear speech present Affect: normal affect Attitude: cooperative Thought process: Normal thought process present Thought content: Normal thought content present Insight: Good insight present (Psych) Judgement: Good judgement present (Psych) Assessment & Plan Assessment & Plan (1) Asthma: Code(s): J45.909 - Unspecified asthma, uncomplicated Category: Medical (2) Environmental allergies: Code(s): Z91.09 - Other allergy status, other than to drugs and biological substances Category: Medical Plan At this time patient well controlled on Breo, Singulair and albuterol MDI/DuoNeb, advised to continue. He is aware if symptoms change to call office. All questions were answered and patient is in agreement of plan. Will follow up in 3 months or sooner if needed. Medications: Discontinued fluticasone furoate-vilanterol 100-25 mcg/dose (Breo Ellipta) Discontinued Reason: Patient Completed Course 1 inh inhalation DAILY 60 ea 6RF Coding Level of Care Code Est Pt Level 4 (12623) Diagnoses Asthma J45.909 Environmental allergies Z91.09
== END 2024-05-26 15:26 | disposition home or self-care (01) ==
PROVIDERS: PCP Internal Medicine; Visit Provider Nurse Practitioner Family
DX: J45.909 Unspecified asthma, uncomplicated (principal); Z91.09 Other allergy status, other than to drugs and biological substances
CPT/HCPCS: 99214

== ENCOUNTER → 2024-05-26 14:55 | Outpatient (BNVA) | payer MEDICAID, SELFPAY | PROVIDERS: PCP Internal Medicine; Visit Provider Nurse Practitioner Family | DX: J45.909 Unspecified asthma, uncomplicated (principal); F17.210 Nicotine dependence, cigarettes, uncomplicated; Z91.09 Other allergy status, other than to drugs and biological substances; Z79.899 Other long term (current) drug therapy | CPT/HCPCS: 99212 ==

== ENCOUNTER 2024-07-27 09:31 | Day surgery (SDC) | payer MEDICAID, SELFPAY ==
[2024-07-23 12:35] VITALS: BMI 32.5
--- OUTSIDE RECORDS SUMMARY | 2024-07-23 17:50 | XMS_ITS | Clinical Summary ---
Author Organization [facility] ity Address [address] [place] [address] Care Team Providers Care Boom Truck Driver Name Role Phone Unavailable Primary Care Provider Unavailabl e Social History Tobacco Use Types Packs/Day Years Used Date Smoking Tobacco: Never Assessed Sex and Gender Information Value Date Recorded Sex Assigned at Not on file Legal Sex Male 7:38 AM EST Gender Identity Not on file Sexual Orientation Not on file Plan of Treatment Health Maintenance Due Date Last Done Comments DTaP,Tdap,and Td Vaccines (1 - Tdap) 1998 Hepatitis B Vaccines (1 of 3 - 19+ 3-dose series) 1998 COVID-19 Vaccine (2023-2 5 season) 2024 Influenza Vaccine (#1) 2024 HIB Vaccines Aged Out No longer eligi ble based on patient's age to complete this topic HPV Vaccines Aged Out No longer eligi ble based on patient's age to complete this topic Hepatitis A Vaccines Aged Out No long er eligible based on patient's age to complete this topic IPV Vaccines Aged Out No longer eligi ble based on patient's age to complete this topic MMR Vaccines Aged Out No longer eligi ble based on patient's age to complete this topic Meningococcal ACWY Vaccine Aged Out N o longer eligible based on patient's age to complete this topic Meningococcal B Vacine Aged Out No lo nger eligible based on patient's age to complete this topic Pneumococcal Vaccine: Pediat rics (0 to 5 Years) and At-Risk Patients (6 to 64 Years) Aged Out No longer eligible b ased on patient's age to complete this topic RSV Immunization Patients Un triston 20 months Aged Out No longer eligible b ased on patient's age to complete this topic Varicella Vaccines Aged Out No longer eligible based on patient's age to complete this topic
--- OUTSIDE RECORDS SUMMARY | 2024-07-23 17:50 | XMS_ITS | Encounter Summary ---
Author Organization [employer] Address [address] [place] [address] Care Team Providers Care Fast Food Crew Member Name Role Phone Ninfa Baez MD Primary Care Provide r Reason for Visit * Reason Onset Date Comments GIANCARLO RECALL 06/23/2024 Encounter Details Date Type Department Care Team ([facility] st Contact Info) Description 06/23/2024 Telephone [facility] [address] [place] [address] Jael Yadav MA AUGUST RECALL Social History Tobacco Use Types Packs/Day Years Used Date Smoking Tobacco: Never Passive Smoke Exposure: Never Smokeless Tobacco: Never Alcohol Use Standard Drinks/Week Comments Never 0 (1 standard drink = 0.6 oz pur e alcohol) Depression Answer Date Recorded Patient Health Questionnaire-9 Score 0 07/15/2023 Patient Health Questionnaire-9 Score 0 07/15/2023 Last PHQ-9: Questionnaire Data Not on file 0 07/15/2023 Housing Stability Answer Date Recorded What is your housing situation today? I have adilson corona 07/03/[address] you li ve. Do you have problems with any of the following? None of the above 07/03/2023 Food Insecurity Answer Date Recorded Within the past 12 months, y ou worried that your food would run out before you got money to buy more: Never True 07/03/2023 Within the past 12 months,th e food you bought just didn't last and you didn't have enough money to get more: Never True Transportation Answer Date Recorded In the past 12 months, has l ack of transportation kept you from medical appts, meetings, work or from getting things needed for daily living? No 07/03/2023 Utilities Answer Date Recorded In the past 12 months, has t he electric, gas, oil or water company threatened to shut off services in your home? No 07/03/2023 Depression Answer Date Recorded Patient Health Questionnaire-2 Score 0 07/15/2023 Internet Access Answer Date Recorded Internet Access Q1 No 01/20/2024 Internet Access Q2 I do not want or need it 06/2023 Sex and Gender Information Value Date Recorded Sex Assigned at Male 03/19/2022 10:40 AM EDT Legal Sex Male 10:40 AM EDT Gender Identity Male 03/19/2022 10:40 AM EDT Sexual Orientation Straight 03/19/2022 10 :40 AM EDT documented as of this encounter Miscellaneous Notes * Telephone Encounter - Jael Yadav MA - 06/23/2024 2:18 PM EST TC- Patient to schedule an appt (August) with [facility]Barciona [facility] to call back to sche appt.Mailed recall letter. documented in this encounter Plan of Treatment Not on file documented as of this encounter Visit Diagnoses Not on filedocumented in this encounter Additional Health Concerns Assessment Noted Time PHQ-9 Depression Total Score: 0 07/15/19 24 10:46 AM EST documented as of this encounter Care Teams Fast Food Crew Member Relationship Specialty Start Date End Date Ninfa Baez MD [address] [place] [id number] PCP - General Family Medicine 08/30/21 documented as of this encounter
--- OUTSIDE RECORDS SUMMARY | 2024-07-23 17:50 | XMS_ITS | Clinical Summary ---
Author Organization [employer] Address [address] [facility] [address] [place] [address] Care Team Providers Care Integrity Specialist Name Role Phone Ninfa Baez MD Primary Care Provide r Allergies Active Allergy Reactions Criticality Noted Date Comments Avocado 12/02/2023 Pistachio Nut (Diagnostic) 4 Medications cholecalciferol (Vitamin D-3) 50 MCG (2000 UT) capsule TAKE 1 CAPSULE BY MOUTH EVERY DAY 90 capsule 1 3 Active albuterol 108 (90 Base) MCG/ACT inhalerIndication s:Mild intermittent asthma, unspecified whether complicated Inhale 2 puffs every 4-6 hours as needed 18 g 11 4 Active Mometasone Furoate (Asmanex HFA) 100 MCG/ACT aerosolIndication s:Mild intermittent asthma, unspecified whether complicated Inhale 2 puffs 2 times daily. 13 g 2 4 Active pantoprazole (Protonix) 40 MG EC tabletIndications :Epigastric pain Take 1 tablet (40 mg) by mouth before breakfast. Do not crush, chew, or split. 30 tablet 11 4 Active Allergy Relief 180 MG tabletIndications :Seasonal allergies TAKE 1 TABLET(180 MG) BY MOUTH IN THE MORNING 90 tablet 1 4 Active famotidine (Pepcid) 40 MG tabletIndications :Chronic gastritis, presence of bleeding unspecified, unspecified gastritis type Take 1 tablet (40 mg) by mouth 2 times daily. 180 tablet 1 4 Active Active Problems Problem Noted Date Diagnosed Date Gastritis 12/02/2023 Assessment & Plan (12/02/2023 10:21 AM EDT): I advise patient to avoid NSAIDs, spicy and acid food, I advise to eat at the same time every day, I advise to elevate the head of the bed and take medications as prescribe It was advise not to miss his appointment with Gastroenterology Enteritis due to Norovirus 08/20/2023 Assessment & Plan (08/20/2023 2:16 PM EDT): Now resolved IBETH (acute kidney injury) 08/20/2023 Assessment & Plan (08/20/2023 2:16 PM EDT): BMP will be repeated Encounter for preventive health examination 06/21 Assessment & Plan (07/15/2023 1:36 PM EST): See HPI Epigastric pain 07/15/2023 Assessment & Plan (08/20/2023 2:15 PM EDT): I advise patient to avoid NSAIDs, spicy and acid food, I advise to eat at the same time every day, I advise to elevate the head of the bed and take medications as prescribe I will gave patient printed GI referral Assessment & Plan (07/15/2023 1:35 PM EST): I advise patient to avoid NSAIDs, spicy and acid food, I advise to eat at the same time every day, I advise to elevate the head of the bed and take medications as prescribe Seasonal allergies 07/15/2023 Low vision 07/12/2023 Mild intermittent asthma 07/12/2023 Assessment & Plan (07/15/2023 1:35 PM EST): Patient educated to avoid asthma triggers Heartburn 07/12/2023 Elevated blood pressure reading 07/12/2023 Encounters Date Type Department Care Team Description 06/23/2024 Telephone [facility] [address] [place] [phone] Jael Yadav [place] AUGUST RECALL from Last 3 Months Immunizations Name Administration Dates Next Due Influenza, IIV3, injectable 03/01/2016 Pfizer Covid-19 Vaccine 12+ 09/12/2020, Pneumococcal Conjugate PCV 20 12/02/2023 Tdap 05/01/2018 Social History Tobacco Use Types Packs/Day Years Used Date Smoking Tobacco: Never Passive Smoke Exposure: Never Smokeless Tobacco: Never Tobacco Cessation:Counseling Given: Not Answered Alcohol Use Standard Drinks/Week Comments Never 0 [...] Orientation Straight 03/19/2022 10 :40 AM EDT Last Filed Vital Signs Vital Sign Reading Time Taken Comments Blood Pressure 137/89 12/02/2023 9:45 AM EDT Pulse 99 12/02/2023 9:45 AM EDT Temperature 36.3 ??C (97.3 ??F) 12/02/2023 9:45 AM ED T Respiratory Rate 18 12/02/2023 9:45 AM EDT Oxygen Saturation 98% 12/02/2023 9:45 AM EDT Inhaled Oxygen Concentration - - Weight 109 kg (239 lb 9.6 oz) 12/02/2023 9:45 AM EDT Height 180.3 cm (5' 11 ) 12/02/2023 9:45 AM EDT Body Mass Index 33.42 12/02/2023 9:45 AM EDT Plan of Treatment Health Maintenance Due Date Last Done Comments CT Colonography 1979 Colonoscopy 1979 Colorectal Cancer Screening 1979 FIT DNA/Cologuard 1979 FIT 1979 FOBT 1979 Sigmoidoscopy 1979 Alcohol/Substance Use Screening 1991 Family Planning (PISQ) 1994 Hepatitis B Vaccines (1 of 3 - 19+ 3-dose series) 1998 COVID-19 Vaccine (2023-2 5 season) 2024 09/12/2020, 08/22/2020 Influenza Vaccine (#1) 2024 03/01/2016 Depression Screening 07/15/2024 07/15/2023, 07/15/2023 SDOH Screening 07/15/2024 07/15/2023 Tobacco Screening 12/01/2024 12/02/2023 DTaP/Tdap/Td Vaccines (2 - T d or Tdap) 05/01/2028 05/01/2018 Lipid Panel 08/19/2028 08/20/2023, 08/30/2021 Zoster Vaccines (1 of 2) 2029 RSV Patients and Patients Aged 60 years or older (1 - 1-dose 75+ series) 2054 HIV Screening Completed 07/15/2023, 10/09/2021, 08/30/2021 Hepatitis C Screening Completed 07/15/2023 , 10/09/2021, 08/30/2021 Pneumococcal Vaccine: Pediatrics (0 to 5 Years) and At-Risk Patients (6 to 49) Years) Completed 12/02/2023 HIB Vaccines Aged Out No longer eligi [...] patient's age to complete this topic Meningococcal Vaccine Aged Out No claudette irving eligible based on patient's age to complete this topic RSV under 20 months Aged Out No longe r eligible based on patient's age to complete this topic Rotavirus Vaccines Aged Out No longer eligible based on patient's age to complete this topic Procedures Procedure Name Priority Date/Time Associated Diagnosis Comments LIPID PANEL, STANDARD Routine 08/20/2023 2:08 PM EDT Encounter for preventive health examination HEPATITIS C AB W/REFL TO HCV RNA, QN, PCR Routine 07/15/2023 11:47 AM EST Encounter for preventive health examination HIV 1/2 ANTIGEN/ANTIBODY, FOURTH GENERATION W/RFL Routine 07/15/2023 11:47 AM EST Encounter for preventive health examination from Last 3 Months or Most Recently Relevant to Health Maintenance Results * (ABNORMAL) Lipid Panel, Standard (08/20/2023 2:08 PM EDT) Triglycerides 481(H) <150 mg/dL [facility] Comment:Desirable Triglyceri de: less than 150 mg/dLBorderline High Triglyceride 150-199 mg/dLHigh Triglyceride: 200-499 mg/dLVery High Triglyceride: greater than or equal to 5OO mg/dL Cholesterol 174 <200 mg/dL [facility] Comment:Desirable Cholestero l: less than 200 mg/dLBorderline High Cholesterol: 200-239 mg/dLHigh Cholesterol: greater than 239 mg/dL LDL Cholesterol Calculated TNP <100 mg/dL [facility] Comment:Unable to calculate the LDL. The formula of Friedwald,Brown, and Oni is only valid if the triglycerides areless than 400 mg/dl. HDL Cholesterol 32(L) >40 mg/dL [facility] Comment:Desirable HDL: great er than 40 mg/dL Note: This HDL assay may give artificially low results in patients with liver disease. Blood Venous blood specimen / Unknown 08/20/2023 2:08 PM EDT 08/20/2023 6:56 PM EDT Ninfa Dwyer MD LAB BLOOD ORDERABLES Final Result Performing Organization Address [facility] Co de Phone Number [facility] [address] [place] [phone] * Hepatitis C Antibody with Reflex to HCV, RNA, Quantitative, Real-Time PCR (07/15/2023 11:47 AM EST) Hepatitis C Antibody Nonreactive Nonreactive [facility] Comment:Antibodies to HCV no t detected; does not exclude early acuteHCV infection. Blood Venous blood specimen / Unknown 07/15/2023 11:47 AM EST 07/15/2023 1:24 PM EST Ninfa Dwyer MD LAB BLOOD ORDERABLES Final Result Performing Organization Address [facility] de Phone Number [facility] [address] [place] [phone] * HIV-1/2 Antigen and Antibodies, Fourth Generation, with Reflexes (07/15/2023 11:47 AM EST) HIV AB/AG Nonreactive Nonreactive [facility] Comment:HIV-1 p24 Ag and/or HIV-1/HIV-2 Ab not detected.A test result that is nonreactive does not exclude thepossibility of exposure to or infection with HIV-1 and/orHIV-2. Nonreactive results in this assay for individualswith prior exposure to HIV-1 and/or HIV-2 may be due toantigen and antibody levels that are below the limit ofdetection of this assay.The [employer] HIV Ag/Ab Combo assay result andsupplemental assay results should be interpreted inconjunction with the patient's clinical presentation,history and other laboratory results. If the results areinconsistent with clinical evidence, additional testing issuggested to confirm the result. Blood Venous blood specimen / Unknown 07/15/2023 11:47 AM EST 07/15/2023 1:24 PM EST Ninfa Dwyer MD LAB BLOOD ORDERABLES Final Result [facility] [address] [place] [phone] [phone] from Last 3 Months or Most Recently Relevant to Health Maintenance Insurance [facility] C3 HSN PARTIAL Care Teams Integrity Specialist Relationship Specialty Start Date End Date Ninfa Baez MD [address] [place] [phone] PCP - General Family Medicine 08/30/21
--- OUTSIDE RECORDS SUMMARY | 2024-07-23 17:50 | XMS_ITS | Encounter Summary ---
Author Organization [employer] Address [address] [facility] [address] [place] [address] Care Team Providers Care President Of [place] Name Role Phone Ninfa Baez MD Primary Care Provide r Encounter Details Date Type Department Care Team ([facility] st Contact Info) Description 08/22/2023 Orders Only [facility] [address] [place], [place] [phone] Ninfa Baez MD [address] [place], [place] [phone] Social History Tobacco Use Types Packs/Day Years Used Date Smoking Tobacco: Never Smokeless Tobacco: Never Alcohol Use Standard [...] Recorded Patient Health Questionnaire-2 Score 0 07/15/2023 Sex and Gender Information Value Date Recorded Sex Assigned at Male 03/19/2022 10:40 AM EDT Legal Sex Male 10:40 AM EDT Gender Identity Male 03/19/2022 10:40 AM EDT Sexual Orientation Straight 03/19/2022 10 :40 AM EDT documented as of this encounter Plan of Treatment Not on file documented as of this encounter Visit Diagnoses Not on filedocumented in this encounter Additional Health Concerns Assessment Noted Time PHQ-9 Depression Total Score: 0 07/15/19 24 10:46 AM EST documented as of this encounter Care Teams President Of [employer] [place] Relationship Specialty Start Date End Date Ninfa Baez MD [address] [place] [phone] PCP - General Family Medicine 08/30/21 documented as of this encounter
--- OUTSIDE RECORDS SUMMARY | 2024-07-23 17:50 | XMS_ITS | Clinical Summary ---
Author Organization [facility] Address [address] [place] [address] Care Team Providers Care Metal Spray Operator Name Role Phone Harriet Elkins [facility] Primary Care Provider [phone] Source Comments PLEASE NOTE, if this patient is a minor, it may be UNLAWFUL to discuss sensitive information that is contained in these records (such as FAMILY PLANNING, MENTAL HEALTH or SUBSTANCE ABUSE) with the minor patient's parent or other person without the patient's specific authorization.[facility] Allergies No known active allergies Medications albuterol sulfate hfa 90 mcg/actuation inhalerIndicatio ns:Acute bronchitis, unspecified organism Inhale 2 Puffs into the lungs every 6 (six) hours as needed for wheezing. 1 Inhaler 2 03/08/2016 Active Active Problems Problem Noted Date Diagnosed Date H. pylori infection 03/17/2016 Immunizations Name Administration Dates Next Due INFLUENZA, SEASONAL, INJECTABLE 03/01/2016 TDAP 05/01/2018 Family History Medical History Relation Name Comments Kidney disease Father Asthma Mother Relation Name Status Comments Father Alive Mother Alive Social History Tobacco Use Types Packs/Day Years Used Date Smoking Tobacco: Never Smokeless Tobacco: Never Alcohol Use Standard Drinks/Week Comments No 0 (1 standard drink = 0.6 oz pur e alcohol) Social Connections Answer Date Recorded Connectedness 0 2024 Financial Resource Strain Answer Date R ecorded Financial Resource Strain 0 2018 Stress Answer Date Recorded Stress 0 01/10/2019 Physical Activity Answer Date Recorded Physical Activity 0 01/10/2019 Food Insecurity Answer Date Recorded Food 0 02/13/2024 Transportation Needs Answer Date Record ed Transportation 0 01/10/2019 Housing Stability Answer Date Recorded Housing 0 01/10/2019 Safety and Environment Answer Date Dinesh rded Safety 0 01/10/2019 Utilities Answer Date Recorded Utilities 0 01/10/2019 Employment Answer Date Recorded Stress 0 2024 Sex and Gender Information Value Date Recorded Sex Assigned at Male 05/01/2018 12:43 PM PST Legal Sex Male 11:36 AM PDT Gender Identity Male 05/01/2018 12:43 PM PST Sexual Orientation Straight 05/01/2018 12 :43 PM PST Occupation Industry Job Start Date Job End Date Lu Not on file Not on file Not on file Last Filed Vital Signs Vital Sign Reading Time Taken Comments Blood Pressure 120/78 05/01/2018 3:10 PM EST Pulse 68 05/01/2018 3:10 PM EST Temperature 36.9 ??C (98.5 ??F) 05/01/2018 3:10 PM ES T Respiratory Rate 17 05/01/2018 3:10 PM EST Oxygen Saturation 95% 03/08/2016 2:08 PM EDT Inhaled Oxygen Concentration - - Weight 95.3 kg (210 lb) 05/01/2018 3:10 PM EST Height 180.3 cm (5' 11 ) 05/01/2018 3:10 PM EST Body Mass Index 29.29 05/01/2018 3:10 PM EST Plan of Treatment Health Maintenance Due Date Last Done Comments Hepatitis C Screening 1979 Tobacco Screening 1979 Imm-Hepatitis B (1 of 3 - 19 + 3-dose series) 1998 Annual Preventive Care Visit 05/01/2019 05/01/2018, 03/01/2016 Hypertension Screening (#1) 05/01/2019 Diabetes Screening 05/01/2021 05/01/2018, 1 , 03/01/2016 Lipid Screening 05/01/2023 05/01/2018, 03/01/2016 [id number] ( season) 2024 CT Colonography 02/18/2024 Colonoscopy 02/18/2024 Colorectal Cancer Screening 02/18/2024 FIT/gFOBT 02/18/2024 Fecal DNA 02/18/2024 Flexible Sigmoidoscopy 02/18/2024 Alcohol and Drug Screen 05/20/2024 05/01/2018, 03/01 Depression Annual Screen 05/20/2024 05/01/2018, 02/17 Imm-DTaP/Tdap/Td (2 - Td or Tdap) 05/01/2028 018 Imm-Influenza Discontinued 03/01/2016, 03/01/2016 HIV Screening Completed 05/01/2018 Procedures Procedure Name Priority Date/Time Associated Diagnosis Comments ANTIBODY HIV-1&HIV-2 SINGLE RESULT Routine 05/01/2018 3:45 PM EST Encounter for screening for HIV COMPREHENSIVE METABOLIC PANEL Routine 05/01/2018 3:45 PM EST Routine general medical examination at a health care facility LIPID PANEL Routine 05/01/2018 3:45 PM EST Routine general medical examination at a health care facility from Last 3 Months or Most Recently Relevant to Health Maintenance Results * HIV-1 & HIV-2 ANTIBODIES (05/01/2018 3:45 PM EST) HIV 1 AND 2 ANTIBODY SCREEN NEGATIVE NEGATIVE [facility] Comment: This assay is a 4th generation assay allowing for earlier detection of HIV infection by detecting the presence of the HIV-1 p24 antigen as well as the traditional antibodies to HIV type 1 (including group O) and type 2. ??Use of a 4th generation assay is the current CDC recommendation for HIV screening. Blood specimen (specimen) Blood / Unknown 05/01/2018 3:45 PM EST 05/01/2018 7:33 PM EST Narrative [facility] - 05/01/2018 8:59 PM EST [employer], a member of [address] [address] Administrative Assistant Front Desk - Sharmaine Salced[place] [id number] ORD# [id number] us [facility] - BLOOD DRAW Final Result [address] [address], [place] [phone] * (ABNORMAL) LIPID PANEL (05/01/2018 3:45 PM EST) CHOLESTEROL 180 0 - 200 mg/dL [facility] TRIGLYCERIDES 218(H) 0 - 150 mg/dL [facility] HDL CHOLESTEROL 37(L) >40 mg/dL [facility] LDL CALCULATED 100 0 - 100 mg/dL [facility] TC-HDLC RATIO 4.9(H) 0 - 4.4 mg/dL [facility] Blood specimen (specimen) Blood / Unknown 05/01/2018 3:45 PM EST 05/01/2018 7:33 PM EST Narrative [facility] - 05/01/2018 8:11 PM EST [facility] [employer], [place] [address] Administrative Assistant Front Desk - Sharmaine Salcedo [place] [id number] ORD# [id number] [facility] - BLOOD DRAW Edited [place] [address], * COMPRE METAB PANEL (05/01/2018 3:45 PM EST) GLUCOSE 93 70 - 100 mg/dL [facility] Comment:Reference range appl icable to fasting specimens only BUN 13 5 - 25 mg/dL [facility] CREAT 0.86 0.7 - 1.3 mg/dL [facility] GLOMERULAR FILTRATION RATE > 60 [facility] Comment: If patient is -Iranian, multiply result by 1.21 Chronic Kidney Disease: < 60 ml/min/1.73 square meters Kidney Failure: < 15 ml/min/1.73 square meters SODIUM 142 133 - 145 mmol/L [facility] POTASSIUM 3.9 3.5 - 5.5 mmol/L [facility] CHLORIDE 105 96 - 110 mmol/L [facility] CO2 30 21 - 32 mmol/L [facility] ANION GAP 7 3 - 11 [facility] CALCIUM 8.8 8.5 - 10.5 mg/dL [facility] TOTAL PROTEIN 7.5 6.0 - 8.0 G/dL [facility] ALBUMIN 4.2 3.2 - 5.0 G/dL [facility] BILI, TOTAL 0.2 0.0 - 1.4 mg/dL [facility] SGOT 19 10 - 42 U/L [facility] SGPT 37 10 - 60 U/L [facility] ALK PHOS 117 42 - 121 U/L [facility] Blood specimen (specimen) Blood / Unknown 05/01/2018 3:45 PM EST 05/01/2018 7:33 PM EST Narrative [facility] - 05/01/2018 8:11 PM EST [employer], [place] [address] Administrative Assistant Front Desk - Sharmaine Salcedo [place] [id number] ORD# [id number] [facility] - BLOOD DRAW Edited Result - Final Performing Organization Address City/State/[facility] Co de Phone Number [address] [address], from Last 3 Months or Most Recently Relevant to Health Maintenance Insurance [employer] Advance Directives Healthcare Agents on File Name Relationship Healthcare Agent Relationshi p Communication Vera Mendoza Mother Health Care Agent Care Teams Metal Spray Operator Relationship Specialty Start Date End Date Harriet Elkins FNP [address] [place] [address] PCP - General 12/11/18
--- NOTE | 2024-07-24 09:43 | HO.ANESPROP2 ---
Documented by User: Patricia Del Angel NP 07/24/24 09:43 HPI - Anesthesia Eval Consult details Narrative: 44yo M for Upper Endoscopy and Colonoscopy [facility] Active Problems Active Problems: All Active Problems Asthma (Acute) Cough (Acute) Chest pain (Acute) Environmental allergies (Acute) Past Medical History Medical History Chronic back pain Asthma Family History Family History Father Kidney disease, chronic, end stage on dialysis Kidney transplant status Surgical History Surgical History No pertinent past surgical history Social History Social History Are you a primary manager wound care to a significant other at home: No Do you presently have visiting nurse or other home services: No Alcohol intake: never Patient Tobacco Use Status: Never used Tobacco Substance Use Type: Marijuana Substance Use Frequency: Daily Have you been hit, kicked, punched, or otherwise hurt by someone within the past year? If so, by whom?: No Are you DNR?: No Advance Directives: No Advance Directives Information Provided: Yes Recently lost weight without trying: No Nutrition Risks: No Nutritional Risk Meds Allergies Allergy/AdvReac Type Severity Reaction Status Date / Time avocado Allergy Severe Shortness Verified 07/27/24 10:13 of Breath Seasonal Allergies Allergy Intermediate Shortness Verified 07/27/24 10:13 of Breath kiwi Allergy Unknown Unknown Verified 07/27/24 10:13 peach Allergy Unknown Unknown Verified 07/27/24 10:13 Home Medications ?Medication ?Instructions ?Recorded ?Confirmed ?Last Taken ?Type albuterol 90 mcg/actuation aerosol mcg inhalation 02/05/24 05/26/24 Unknown History inhaler tramadol 25 mg tablet 25 mg PO Q6H PRN Pain, Mild 02/05/24 07/27/24 Unknown History Exam Height,Weight and Vital Signs: Height 5 ft 11 in Weight 105.687 kg Assessment and Plan Assessment Anesthesia Assessment: Chart Reviewed Documented by User: Kreri Brown MD 07/27/24 12:54 PMF Past Medical History Medical History Chronic back pain Asthma Family History Family History Father Kidney disease, chronic, end stage on dialysis Kidney transplant status Surgical History Surgical History No pertinent past surgical history History of Problems with Anesthesia: No Social History Social History Are you a primary manager wound care to a significant other at home: No Do you presently have visiting nurse or other home services: No Alcohol intake: never Patient Tobacco Use Status: Never used Tobacco Substance Use Type: Marijuana Substance Use Frequency: Daily Have you been hit, kicked, punched, or otherwise hurt by someone within the past year? If so, by whom?: No Are you DNR?: No Advance Directives: No Advance Directives Information Provided: Yes Recently lost weight without trying: No Nutrition Risks: No Nutritional Risk Meds Allergies Allergy/AdvReac Type Severity Reaction Status Date / Time avocado Allergy Severe Shortness Verified 07/27/24 10:13 of Breath Seasonal Allergies Allergy Intermediate Shortness Verified 07/27/24 10:13 of Breath kiwi Allergy Unknown Unknown Verified 07/27/24 10:13 peach Allergy Unknown Unknown Verified 07/27/24 10:13 Home Medications ?Medication ?Instructions ?Recorded ?Confirmed ?Last Taken ?Type albuterol 90 mcg/actuation aerosol mcg inhalation 02/05/24 05/26/24 Unknown History inhaler tramadol 25 mg tablet 25 mg PO Q6H PRN Pain, Mild 02/05/24 07/27/24 Unknown History Exam Airway Mallampati Class: III TM Dist: >3cm Neck ROM: Full Loose/Missing/Broken Teeth: No Heart: RRR Lungs: CTA Assessment and Plan Assessment Anesthesia Assessment: Anesthesia Plan Discussed Final Anesthetic Review History of Problems with Anesthesia: No NPO: Yes ASA Class: II Final Preanesthetic Review: Meds/Allgs Chart Reviewed, Consent Obtained/Reviewed and Anes Risks/Benef Reviewed Patient Risk: Low Procedure Risk: Intermediate Anesthetic Plan Anesthetic Plan: MAC: Disposition: Standard PACU
[2024-07-27 10:12] VITALS: BMI 33.2
[2024-07-27] MEDS: Lactated Ringers 1,000 ML 100 ML IVCONT (10:20)
[2024-07-27 10:34] VITALS: BP 128/78; PULSE 71; RESP 18; TEMP 36.6; O2SAT 98
--- NOTE | 2024-07-27 10:39 | MHC.SHP ---
Pre-Procedural Eval Section A - 24 Hr Update-Section A only Date of Service: 07/27/24 The patient is an INPATIENT: No The patient has been examined within 24 hours of the surgical procedure. The History & Physical has been completed within 30 days and I have reviewed it.: No Section B - Complete if H&P > 30 days Chief Complaint: Colon cancer screening, GERD Relevant Family History (Specify if Yes): No Relevant Social History: Tobacco Use Present Medications: see Short Stay Collaborative assessment Medical History: Significant History (Chronic back pain Asthma) History of Previous Operations: No relevant previous surgery Allergies: Allergies Allergy/AdvReac Type Severity Reaction Status Date / Time avocado Allergy Severe Shortness Verified 07/27/24 10:13 of Breath Seasonal Allergies Allergy Intermediate Shortness Verified 07/27/24 10:13 of Breath kiwi Allergy Unknown Unknown Verified 07/27/24 10:13 peach Allergy Unknown Unknown Verified 07/27/24 10:13 Review of Systems Sugical H&P ROS: Negative: Constitution, Cardiovascular, Respiratory and Gastrointestinal Exam Surgical H&P Exam: Normal: Heart, Normal: Lungs, Normal: Extremities and Normal: Abdomen Plan Diagnosis/Plan: Unchanged I have reviewed the history and physical and performed a pertinent physical examination on my patient. No changes have occurred unless specified. Time Spent With Patient Time: Total time managing care of this patient today ____ minutes.
--- NOTE | 2024-07-27 11:59 | P.OPN-COLO_ITS ---
Colonoscopy Operative Note Operative Note Date of Service: 07/27/24 Narrative: FLEXIBLE TRANSORAL UPPER GASTROINTESTINAL ENDOSCOPY WITH BIOPSIES AND COLONOSCOPY TILL CECUM WITH BIOPSIES AND SNARE POLYPECTOMY Pre-op diagnosis: Colon cancer screening, GERD Post-op diagnosis: GERD, Gastritis, Colon Polyps, Diverticulosis, hemorrhoids Endoscopist:Sheldon Morse MD Anesthesia:?MAC UPPER ENDOSCOPY Consent: Indications for the procedure and potential complications of bleeding, perforation, reaction to medications and missed diagnosis were discussed with the patient and informed consent was obtained. Instrument: Olympus GIF H 190 mid size upper endoscope Monitoring: Vital signs and clinical assessment, continuous EKG monitoring, Pulse oximetry, Carbon Dioxide monitoring and blood pressure monitoring were done throughout the procedure. Procedure: The patient was placed in the left lateral decubitis position and pre-procedure medications were administered and a bite block was placed. The endoscope was inserted into the mouth and advanced under direct vision to the third part of duodenum. A careful inspection was made as the upper endoscope was withdrawn including a retroflexed examination of the proximal stomach; Findings and interventions are described below. Findings: Larynx: Normal Esophagus: GE junction at 40 cms. No esophagitis or Sorensen's. Stomach: Moderate diffuse gastric erythema - biopsies were obtained from the gastric body and antrum. Grade 2 flap valve on retroflexed examination of the cardia. Duodenum: Normal bulb and descending duodenum Intervention: Biopsies as noted above COLONOSCOPY PROCEDURE NOTE Instrument: Olympus CF H 190 L variable stiffness adult colonoscope Monitoring: Vital signs and clinical assessment, intermittent blood pressure monitoring, continuous EKG monitoring, Pulse oximetry and Carbon Dioxide monitoring were done throughout the procedure. Please see anesthesia flowsheet. Colon withdrawl time was 20 minutes. Procedure: The patient was placed in the left lateral decubitis position and pre-procedure medications were administered. After a digital rectal examination of the ano-rectum, the video colonoscope was inserted into the rectum and advanced through the colon to the cecum. The colonoscope was slowly withdrawn in a retrograde panoramic fashion and the colon mucosa was carefully examined including a retroflexed view of the rectum. Findings and interventions are described below. Procedure Difficulty: Pt was placed in the supine position and LLQ pressure was applied to intubate the cecum Findings: Terminal Ileum: Not evaluated Cecum: Normal Ascending Colon: Two 10-12 mm sessile polyps in the distal AC - removed with a hot snare Transverse Colon: Normal Descending Colon: Moderate diverticulosis Sigmoid Colon: Moderate diverticulosis Rectum: Two 7-8 mm hyperplastic appearing polyps - removed with a hot snare Ano-rectum: Moderate internal hemorrhoids Colon preparation: Good after some irrigation. Tillman Bowel Preparation Scale Right colon; 2 Transverse colon: 2 Left colon; 2 (0 = Unprepared colon segment with mucosa not seen due to solid stool that cannot be cleared. 1 = Portion of mucosa of the colon segment seen, but other areas of the colon segment not well seen due to staining, residual stool and/or opaque liquid. 2 = Minor amount of residual staining, small fragments of stool and/or opaque liquid, but mucosa of colon segment seen well. 3 = Entire mucosa of colon segment seen well with no residual staining, small fragments of stool or opaque liquid) Impression and Post Procedure Diagnosis: Endoscopy Findings: ESOPHAGUS: Normal STOMACH: Moderate diffuse gastritis DUODENUM: Normal Colonoscopy Findings: Four polyps were removed Moderate diverticulosis seen in the left colon Moderate hemorrhoids on retroflexed exam. Plan: Pt has a FU appointment on 08/11/23 with Isa Jolley NP Repeat Colonoscopy in 3-5 years if polyps are adenomatous and 10 year if polyps are hyperplastic. Above findings were reviewed with the patient and relevant handouts were given and the discharge area. BIOPSIES SHOWED A. Stomach, antrum, biopsy: Gastric antral mucosa within normal limits; negative for Helicobacter pylori, intestinal metaplasia and dysplasia. B. Stomach, body, biopsy: Gastric body mucosa within normal limits; negative for Helicobacter pylori, intestinal metaplasia and dysplasia. C. Colon, ascending, polypectomy x2: Tubular adenoma (2); negative for high- grade dysplasia. D. Rectum, polypectomy x2: Hyperplastic polyp (2). Letter sent advising repeat colonoscopy in 3 years. Patient was placed in the colonoscopy recall list.
[2024-07-27 12:39] VITALS: BP 132/96; PULSE 73; RESP 16; TEMP 36.1; O2SAT 98
[2024-07-27 12:54] VITALS: BP 133/98; PULSE 71; RESP 16; TEMP 36.1; O2SAT 99
== END 2024-07-27 13:30 | disposition home or self-care (01) ==
PROVIDERS: PCP Internal Medicine; Visit Provider Internal Medicine Gastroenterology
PROC: (CPT 45385; principal; 2024-07-27 11:50)
DX: Z12.11 Encounter for screening for malignant neoplasm of colon (principal); D12.2 Benign neoplasm of ascending colon; K62.1 Rectal polyp; K57.30 Diverticulosis of large intestine without perforation or abscess without bleeding; K64.8 Other hemorrhoids; R10.12 Left upper quadrant pain; R14.0 Abdominal distension (gaseous); K21.9 Gastro-esophageal reflux disease without esophagitis; K29.50 Unspecified chronic gastritis without bleeding; J45.909 Unspecified asthma, uncomplicated; G89.29 Other chronic pain; M54.9 Dorsalgia, unspecified; Z79.51 Long term (current) use of inhaled steroids; Z79.899 Other long term (current) drug therapy
CPT/HCPCS: 45385; 45380; 43239; 88305; 88313; 88342; J2003; J2250; J2704

== ENCOUNTER → 2024-07-27 09:31 | Outpatient (BNV) | payer MEDICAID, SELFPAY | PROVIDERS: PCP Internal Medicine; Visit Provider Internal Medicine Gastroenterology | DX: Z12.11 Encounter for screening for malignant neoplasm of colon (principal); D12.2 Benign neoplasm of ascending colon; K63.5 Polyp of colon; K57.90 Diverticulosis of intestine, part unspecified, without perforation or abscess without bleeding; K21.9 Gastro-esophageal reflux disease without esophagitis; K29.70 Gastritis, unspecified, without bleeding | CPT/HCPCS: 43239; 45385 ==

== ENCOUNTER 2024-08-10 12:06 | Outpatient (AMB) | payer MEDICAID, SELFPAY ==
--- NOTE | 2024-08-10 12:08 | MHC.OFFVIS ---
Vital Signs 08/10/24 12:20 Height 5 ft 11 in Weight 242 lb 15.19 oz BMI 33.9 BP 136/76 Blood Pressure Location Rt brachial Position Sitting Pulse 78 Pulse Source Pulse Oximeter Pulse Oximetry (%) 97 Oxygen Delivery Method Room Air Intake Visit Reasons: s/p egd/colon Intake Note: ESTABLISHED PATIENT for s/p duo w/ RM Chief Complaint; C/O bloating, abd distention, constipation, and hemorrhoids. Pt has been tx hemorrhoids with prep H and has been doing OK. Pt also still taking nexium and reports that GERD is well controlled. No additional concerns at this time. Electron Beam Photo Mask Maker Required: Yes Electron Beam Photo Mask Maker Services: Electron Beam Photo Mask Maker Offered & Declined Accompanied by: Spouse Allergies avocado Allergy (Severe, Verified 08/10/24 12:09) Shortness of Breath Seasonal Allergies Allergy (Intermediate, Verified 08/10/24 12:09) Shortness of Breath kiwi Allergy (Unknown, Verified 08/10/24 12:09) Unknown peach Allergy (Unknown, Verified 08/10/24 12:09) Unknown HPI HPI s/p egd/colon: Details: LAST VISIT: Postprandial abdominal pain in left upper quadrant Postprandial epigastric pain GERD (gastroesophageal reflux disease) Postprandial abdominal bloating Screen for colon cancer Asthma Plan Patient reports wheezing. He is not taking any corticosteroid inhalers. On rescue albuterol. Will send patient to pulmonology for PFT. Patient will be sent to go for upper endoscopy symptoms of acid reflux better, however occasionally he will have breakthrough symptoms. Due for colonoscopy. No family history of CRC. No issues with anesthesia in the past. No history of sleep apnea. Not on any anticoagulation medication. What to expect before during and after procedure discussed with patient. Stressed the importance of good bowel prep and clear liquid diet. I will see patient after the procedure, sooner on as needed basis. He is agreeable to this plan and verbalizes understanding of instructions. He was given the opportunity to ask questions and all questions answered. ? Thank you for allowing me to participate in his care Orders Referrals Pulmonology Referral J45.192 Medications New bisacodyl (Dulcolax (bisacodyl)) take 4 tabs at noon the day before your colonoscopy 20 mg (4 x 5 mg) PO ONCE 1 day 4 tabs 0RF Z12.11 polyethylene glycol 3350 (Miralax) As directed by gastroenterology department at [facility] 238 grams PO ONCE 238 grams 0RF Z12.11 UPPER ENDOSCOPY AND COLONOSCOPY Findings: Larynx: Normal Esophagus: GE junction at 40 cms. No esophagitis or Sorensen's. Stomach: Moderate diffuse gastric erythema - biopsies were obtained from the gastric body and antrum. Grade 2 flap valve on retroflexed examination of the cardia. Duodenum: Normal bulb and descending duodenum Intervention: Biopsies as noted above Findings: Terminal Ileum: Not evaluated Cecum: Normal Ascending Colon: Two 10-12 mm sessile polyps in the distal AC - removed with a hot snare Transverse Colon: Normal Descending Colon: Moderate diverticulosis Sigmoid Colon: Moderate diverticulosis Rectum: Two 7-8 mm hyperplastic appearing polyps - removed with a hot snare Ano-rectum: Moderate internal hemorrhoids Colon preparation: Good after some irrigation. Mcallen Bowel Preparation Scale Right colon; 2 Transverse colon: 2 Left colon; 2 (0 = Unprepared colon segment with mucosa not seen due to solid stool that cannot be cleared. 1 = Portion of mucosa of the colon segment seen, but other areas of the colon segment not well seen due to staining, residual stool and/or opaque liquid. 2 = Minor amount of residual staining, small fragments of stool and/or opaque liquid, but mucosa of colon segment seen well. 3 = Entire mucosa of colon segment seen well with no residual staining, small fragments of stool or opaque liquid) Impression and Post Procedure Diagnosis: Endoscopy Findings: ESOPHAGUS: Normal STOMACH: Moderate diffuse gastritis DUODENUM: Normal Colonoscopy Findings: Four polyps were removed Moderate diverticulosis seen in the left colon Moderate hemorrhoids on retroflexed exam. Plan: Repeat Colonoscopy in 3-5 years if polyps are adenomatous and 10 year if polyps are hyperplastic. Above findings were reviewed with the patient and relevant handouts were given and the discharge area. BIOPSIES SHOWED A. Stomach, antrum, biopsy: Gastric antral mucosa within normal limits; negative for Helicobacter pylori, intestinal metaplasia and dysplasia. B. Stomach, body, biopsy: Gastric body mucosa within normal limits; negative for Helicobacter pylori, intestinal metaplasia and dysplasia. C. Colon, ascending, polypectomy x2: Tubular adenoma (2); negative for high-grade dysplasia. D. Rectum, polypectomy x2: Hyperplastic polyp (2). TODAY'S VISIT: Patient is here today for follow-up and to discuss upper endoscopy and colonoscopy. Patient denies any ill effects from the prep, anesthesia or procedure itself. Patient reports that he has been doing fairly well, symptoms of acid reflux are suppressed for the most part. Patient reports occasionally depending on what he eats he might have epigastric pain postprandially. Tubular adenoma found without high-grade dysplasia or carcinoma rectal polyps hyperplastic. Moderate diverticulosis in the left colon as well as moderate hemorrhoids seen. Patient admits to having occasional blood and rectal pain, uses preparation H with help. Patient reports that sometimes he will have diarrhea postprandially and then he would be constipated. Patient admits that he is not eating enough fiber in his diet. Patient is not drinking enough liquids either. [facility] Medical History (Updated 08/20/24 @ 20:01 by Park Jolley [facility]) Diverticulosis Normal esophagogastroduodenoscopy (EGD) Chronic back pain Asthma Surgical History Hx of colonoscopy No pertinent past surgical history Family History Father Kidney disease, chronic, end stage on dialysis Kidney transplant status Social History Are you a primary human services care specialist to a significant other at home: No Do you presently have visiting nurse or other home services: No Alcohol intake: never Patient Tobacco Use Status: Never used Tobacco Substance Use Type: Marijuana Review of Systems Const Denies weight gain and Denies weight loss ENT Reports no additional complaints, Denies dysphagia and Denies odynophagia Card Reports no additional complaints Resp Reports no additional complaints GI Reports abdominal pain, Denies belching, Denies melena, Reports bloating, Denies change in bowel habits, Denies dysphagia, Denies excessive flatus, Denies dyspepsia, Reports heartburn, Denies diarrhea, Denies loose stools, Denies nausea, Denies odynophagia and Denies vomiting Reports no additional complaints Musc Reports no additional complaints Neuro Reports no additional complaints Psych Reports no additional complaints Endo Reports no additional complaints Physical Exam Vital Signs: Last Vital Signs Pulse 78 08/10/24 12:20 BP 136/76 08/10/24 12:20 Pulse Ox 97 08/10/24 12:20 Oxygen Delivery Method Room Air 08/10/24 12:20 BMI result Body Mass Index 33.9 Const General: healthy appearing, no acute distress and well developed Nutritional Appearance: obese Orientation/consciousness: patient oriented x3 Resp Effort & Inspection: normal respiratory effort, able to speak in complete sentences, no tracheal deviation and symmetric chest movement Auscultation: wheezes expiratory wheezes and throughout Cardio Rate: regular rate GI Inspection: Yes normal to inspection, No distended and Yes obesity Palpation (GI): Soft to palpation, not firm, nontender and No hepatosplenomegaly present Auscultation: normal bowel sounds General: Yes no CVA tenderness Back/Spine/Pelvis Back: no CVA tenderness Skin General skin exam: elasticity normal, turgor normal and dry skin Neuro General: patient oriented x3 Psych Appearance: grossly normal Mental Status: mental status grossly normal Assessment & Plan Assessment & Plan (1) Diverticulosis: Code(s): K57.90 - Diverticulosis of intestine, part unspecified, without perforation or abscess without bleeding Category: Medical (2) Postprandial abdominal pain in left upper quadrant: Code(s): R10.12 - Left upper quadrant pain (3) Postprandial epigastric pain: Code(s): R10.13 - Epigastric pain (4) GERD (gastroesophageal reflux disease): Code(s): K21.9 - Gastro-esophageal reflux disease without esophagitis Qualifiers: Esophagitis presence: without esophagitis Qualified Code(s): K21.9 - Gastro-esophageal reflux disease without esophagitis (5) Postprandial abdominal bloating: Code(s): R14.0 - Abdominal distension (gaseous) (6) Status post colonoscopy: Code(s): Z98.890 - Other specified postprocedural states (7) Hemorrhoids without complication: Code(s): K64.9 - Unspecified hemorrhoids Plan Gastritis inactive and chronic seen on upper endoscopy. Patient continues to have epigastric pain postprandially depending on what he eats. Will send to check transglutaminase, lipase, liver profile. Patient will continue taking Nexium daily. Avoid dietary triggers and late night snacking. Staying upright for minimum 3 hours after meals discussed with patient. Patient reports that occasionally he will have postprandial loose stools. Will order B12, folate and vitamin-D levels. Patient will start taking Citrucel daily and Senokot in the evening to help her eliminate his bowels better. Patient will be seen in the office in 3-4 months, sooner on as needed basis. He is agreeable to this plan and verbalizes understanding of instructions. He was given the opportunity to ask questions and all questions answered. Thank you for allowing me to participate in his care Orders: Orders Vitamin D 25-OH (D2 and D3) 08/10/24 E55.9 - Vitamin D deficiency, unspecified Vitamin B12 and Folate 08/10/24 R19.7 - Diarrhea, unspecified Transglutaminase IgA 08/10/24 R10.9 - Unspecified abdominal pain Lipase 08/10/24 R10.9 - Unspecified abdominal pain Liver Panel 08/10/24 R74.01 - Elevation of levels of liver transaminase levels TSH reflex Free T4 08/10/24 K59.00 - Constipation, unspecified Medications: New methylcellulose (laxative) (Citrucel) take it with full glass of water 500 mg PO DAILY 90 tabs 2RF K59.00 - Constipation, unspecified sennosides (Natural Senna Laxative) 17.2 mg (2 x 8.6 mg) PO BEDTIME 60 tabs 3RF constipation K59.00 - Constipation, unspecified Coding Level of Care Code Est Pt Level 4 (41421) Complex EM visit Add On G2211 Diagnoses Diverticulosis K57.90 Postprandial abdominal pain in left upper quadrant R10.12 Postprandial epigastric pain R10.13 Gastroesophageal reflux disease without esophagitis K21.9 Esophagitis presence: without esophagitis Postprandial abdominal bloating R14.0 Status post colonoscopy Z98.890 Hemorrhoids without complication K64.9 Time Spent (min) 35 Comment 20 minutes spent with patient and additional 15 minutes spent reviewing his records
[2024-08-10 12:20] VITALS: BP 136/76; PULSE 78; O2SAT 97; BMI 33.9
== END 2024-08-10 12:49 | disposition home or self-care (01) ==
LOC: HO.HGI 12:07
PROVIDERS: PCP Internal Medicine; Visit Provider Nurse Practitioner Family
DX: K57.90 Diverticulosis of intestine, part unspecified, without perforation or abscess without bleeding (principal); R10.12 Left upper quadrant pain; R10.13 Epigastric pain; K21.9 Gastro-esophageal reflux disease without esophagitis; R14.0 Abdominal distension (gaseous); Z98.890 Other specified postprocedural states; K64.9 Unspecified hemorrhoids
CPT/HCPCS: 99214

== ENCOUNTER 2024-08-10 12:06 | Outpatient (REF) | payer MEDICAID, SELFPAY ==
[2024-08-10 15:22] LABS: Alanine Aminotransferase 46 U/L (0-40); Albumin Level 4.3 g/dL (3.5-5.0); Alkaline Phosphatase 125 U/L (39-117); Aspartate Amino Transferase 29 U/L (5-37); Bilirubin Direct < 0.2 mg/dL (0.0-0.5); Bilirubin Total 0.2 mg/dL (0.0-1.0); Lipase 33 U/L (8-78)
[2024-08-10 15:38] LABS: TSH reflex Free T4 1.18 uIU/mL (0.32-4.0)
[2024-08-10 15:39] LABS: Folate 12.4 ng/mL (> or = 4.0); Vitamin B12 306 pg/mL (200-900)
[2024-08-11 13:59] LABS: Transglutaminase IgA <1.0 U/mL
[2024-08-11 17:32] LABS: Immunoglobulin E 132 kU/L (<OR=114)
[2024-08-14 16:03] LABS: Vitamin D 25-OH, D2 <4 ng/mL; Vitamin D 25-OH, D3 23 ng/mL; Vitamin D 25-OH, Total 23 ng/mL (30-100)
== END 2024-08-10 12:07 | disposition home or self-care (01) ==
LOC: HO.LAB 12:06
PROVIDERS: Nurse Practitioner Family; PCP Internal Medicine; Visit Provider Nurse Practitioner Family
DX: R10.9 Unspecified abdominal pain (principal); R74.01 Elevation of levels of liver transaminase levels; K59.00 Constipation, unspecified; E55.9 Vitamin D deficiency, unspecified; R19.7 Diarrhea, unspecified; Z91.09 Other allergy status, other than to drugs and biological substances
CPT/HCPCS: 36415; 80076; 82306; 82607; 82746; 82785; 83690; 84443; 86364

== ENCOUNTER 2024-09-22 11:00 | Outpatient (AMB) | payer MEDICAID, SELFPAY ==
--- NOTE | 2024-09-22 11:06 | MHC.OFFVIS ---
Vital Signs 09/22/24 11:07 Height 5 ft 11 in Weight 242 lb 2 oz BMI 33.8 BP 130/84 Blood Pressure Location Rt brachial Position Sitting Pulse 103 H Pulse Source Pulse Oximeter Pulse Oximetry (%) 95 Oxygen Delivery Method Room Air Intake Visit Reasons: Asthma Allergies avocado Allergy (Severe, Verified 09/22/24 11:10) Shortness of Breath Seasonal Allergies Allergy (Intermediate, Verified 09/22/24 11:10) Shortness of Breath kiwi Allergy (Unknown, Verified 09/22/24 11:10) Unknown peach Allergy (Unknown, Verified 09/22/24 11:10) Unknown HPI HPI Asthma: Details: Len is a pleasant 44 year old male, current minimal marijuana smoker, with underlying asthma since childhood and allergic rhinitis. 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 Since the last visit he has been well controlled on Breo 200 mcg and Singulair, rarely requiring albuterol/DuoNeb, up until 1-2 weeks ago. He reports worsening wheezing, dry cough and dyspnea on exertion. He has not been using DuoNeb. He denies any fevers, chills, sick contacts or chest congestion. He denies any visits to urgent care or hospitalizations since the last visit. Of note, he reports ongoing morning headaches, daytime fatigue and witnessed apneas, questioning CORNEL. Denies prior home sleep study. [facility] Medical History (Updated 09/22/24 @ 12:59 by Anna Mitchell NP) Diverticulosis Normal esophagogastroduodenoscopy (EGD) Chronic back pain Asthma Surgical History Hx of colonoscopy No pertinent past surgical history Family History Father Kidney disease, chronic, end stage on dialysis Kidney transplant status Social History Are you a primary healthcare administration internship to a significant other at home: No Do you presently have visiting nurse or other home services: No Alcohol intake: never Patient Tobacco Use Status: Never used Tobacco Substance Use Type: Marijuana Review of Systems Const Denies chills, Denies excessive sweating, Denies fever(s), Denies headache(s) and Denies night sweats Eyes Denies dry eyes, Denies irritation and Denies itchy eyes ENT Reports Normal hearing present, Denies headache(s), Denies nasal congestion, Denies nasal discharge, Denies post nasal drip and Denies sore throat Card Denies chest pain, Denies chest pain at rest, Denies chest pain with activity, Denies claudication, Denies leg edema, Denies dyspnea, Denies orthopnea and Denies paroxysmal nocturnal dyspnea Resp Denies chest congestion, Denies excessive phlegm production, Denies pain on inspiration, Denies pain with cough, Denies dyspnea and Denies stridor Musc Denies myalgias Neuro Reports Normal hearing present and Denies headache(s) Endo Denies excessive sweating Margarito/Lymph Denies lymphadenopathy Aller/Immun Denies itchy eyes and Denies seasonal rhinorrhea Physical Exam Vital Signs: Last Vital Signs Pulse 103 H 09/22/24 11:07 BP 130/84 09/22/24 11:07 Pulse Ox 95 09/22/24 11:07 Oxygen Delivery Method Room Air 09/22/24 11:07 BMI result Body Mass Index 33.8 Const General: cooperative, healthy appearing, comfortable, no acute distress, well developed and alert Nutritional Appearance: obese Orientation/consciousness: patient oriented x3 Limitations: no limitations HEENT Head: Yes normal to inspection, Yes normocephalic and Yes atraumatic Ears: hearing grossly normal bilaterally and external ears normal Eyes General: appearance normal, both eyes and all related structures Eyelids: Yes eyelids normal Sclerae: sclerae normal EOM: EOMs intact bilaterally Neck Neck: Yes normal visual inspection and Yes no lymphadenopathy Lymphatic: no lymphadenopathy noted Chest Chest palpation & inspection: normal inspection of the chest Resp Effort & Inspection: normal respiratory effort, able to speak in complete sentences, no cough, no stridor, not tachypneic, no tripod positioning and no use of accessory muscles Auscultation: wheezes expiratory wheezes and throughout Cardio Jugular venous distension: no JVD Rate: regular rate Rhythm: regular rhythm Skin Other: warm, dry General skin exam: no rashes or lesions noted Neuro General: patient oriented x3 Cranial nerves: Yes Normal hearing present Cognition (Neuro): normal cognition Gait exam (Neuro): Normal gait present Extrem General: Yes normal to inspection, Yes capillary refill normal, Yes no clubbing, cyanosis or edema and Yes no pedal edema Psych Appearance: grossly normal and well kempt Speech and movement: Normal speech and movement present and Clear speech present Affect: normal affect Attitude: cooperative Thought process: Normal thought process present Thought content: Normal thought content present Insight: Good insight present (Psych) Judgement: Good judgement present (Psych) Office Procedures Nebulizer Treatment Nebulizer Treatment [id number]/[id number] RX initial, or Nebulizer Subsequent Treatment (LOT 24MD1 exp 01/17/26) Assessment & Plan Assessment & Plan (1) Asthma: Code(s): J45.909 - Unspecified asthma, uncomplicated Category: Medical (2) Environmental allergies: Code(s): Z91.09 - Other allergy status, other than to drugs and biological substances Category: Medical (3) Witnessed episode of apnea: Code(s): R06.81 - Apnea, not elsewhere classified Category: Medical (4) Daytime somnolence: Code(s): R40.0 - Somnolence Category: Medical Plan Will treat acute exacerbation with prednisone. He is aware if symptoms do not improve to call office. DuoNeb given in office with mild improvement. Will switch Breo to Trelgy and consider biologic, as patient with significant allergic component. Discussed ways to minimize allergen exposure. Will send for PFT, as this was previously ordered however not performed. Patient reports symptoms suggestive of CORNEL, will send for home sleep study. All questions were answered and patient is in agreement of plan. Will follow up in 6-8 weeks or sooner if needed. Orders: Orders RT home sleep study Today R06.81 - Apnea, not elsewhere classified PFT pulmonary function test Today J45.909 - Unspecified asthma, uncomplicated Medications: New prednisone 40 mg (2 x 20 mg) PO DAILY 10 tabs 0RF [id number]-jcuciyflc-cyjxskjz 200-62.5-25 mcg (Trelegy Ellipta) 1 inh inhalation DAILY 60 ea 4RF Coding Level of Care Code Est Pt Level 4 (09672) Diagnoses Asthma J45.909 Environmental allergies Z91.09 Witnessed episode of apnea R06.81 Daytime somnolence R40.0 CPT Codes Nebulizer Treatment - Nebulizer Treatment, initial or subsequent: [id number]/[id number] RX initial, or Nebulizer Subsequent Treatment ([id number])
[2024-09-22 11:07] VITALS: BP 130/84; PULSE 103; O2SAT 95; BMI 33.8
--- OUTSIDE RECORDS SUMMARY | 2024-09-22 12:44 | XMS_ITS | Clinical Summary ---
Author Organization [facility] ity Address [address] [place] [address] Care Team Providers Care Research Geologist Name Role Phone Unavailable Primary Care Provider [...] Vaccine (2023-2 5 season) 2024 Influenza Vaccine (Season Ended) 2025 HIB Vaccines Aged Out No longer eligi [...] age to complete this topic Meningococcal B Vaccine Aged Out No l onger eligible based on patient's age to complete [...]
--- OUTSIDE RECORDS SUMMARY | 2024-09-22 12:44 | XMS_ITS | Clinical Summary ---
Author Organization [employer] Address [address] [place] [address] Care Team Providers Care Flight Communications Specialist Name Role Phone Ninfa Baez MD Primary Care Provide r Allergies Active Allergy Reactions Criticality Noted Date Comments Avocado 12/02/2023 Pistachio Nut (Diagnostic) 4 Medications cholecalciferol (Vitamin D-3) 50 MCG (1999 UT) capsule TAKE 1 CAPSULE BY MOUTH [...] Encounters Date Type Department Care Team Description 08/10/2024 Orders Only GENERIC EXTERNAL DATA DEPARTMENT Provider, Generic External Data 07/31/2024 Population Health Risk Score [facility] (C3) Department [address] [place] [phone] Provider, Population Health Generic 07/27/2024 Orders Only GENERIC EXTERNAL DATA DEPARTMENT Provider, Generic External Data from Last 3 Months Immunizations Name Administration [...] 12/02/2023 9:45 AM EDT Plan of Treatment Upcoming Encounters Date Type Department Care Team (Late st Contact Info) Description 11/09/2024 9:45 AM EDT Office Visit [facility] MEDICINE [address] [place], [place] [phone] Ninfa Baez MD [address] [place] [address] Health Maintenance Due Date Last Done Comments [...] Procedure Name Priority Date/Time Associated Diagnosis Comments VITAMIN D 25-OH (D2 AND D3) Routine 08/10/2024 1:12 PM EDT IMMUNOGLOBULIN E Routine 08/10/2024 1:12 PM EDT TISSUE TRANSGLUTAMINASE AB, IGA Routine 08/10/2024 1:12 PM EDT VITAMIN B12/FOLATE, SERUM PANEL Routine 08/10/2024 1:12 PM EDT TSH W/REFLEX TO FT4 Routine 08/10/2024 1 :12 PM EDT LIPASE Routine 08/10/2024 1:12 PM EDT HEPATIC FUNCTION PANEL Routine 1:12 PM EDT HEMATOXYLIN AND EOSIN STAIN Routine 07/27/2024 12:09 PM EDT LIPID PANEL, STANDARD Routine 08/20/2023 2:08 PM EDT Encounter for preventive health examination HEPATITIS C AB W/REFL TO HCV RNA, QN, PCR Routine 07/15/2023 11:47 AM EST Encounter for preventive health examination HIV 1/2 ANTIGEN/ANTIBODY, FOURTH GENERATION W/RFL Routine 07/15/2023 11:47 AM EST Encounter for preventive health examination from Last 3 Months or Most Recently Relevant to Health Maintenance Results * (ABNORMAL) VITAMIN D 25-OH (D2 AND D3) (08/10/2024 1:12 PM EDT) Vitamin D, 25-OH, D2 <4 ng/mL [facility] Comment:This test was develo ped and its analytical performancecharacteristics have been determined by [employer] [place], [place]. It hasnot been cleared or approved by the U.S. Food and DrugAdministration. This assay has been validated pursuantto the CLIA regulations and is used for clinicalpurposes.THIS TEST WAS PERFORMED AT:[id number] [place] [address]FWVHBRC W. MASON,MD,PHD Vitamin D, 25-OH, D3 23 ng/mL [facility] Comment:This test was develo ped and its analytical performancecharacteristics have been determined by [employer] [place], [place]. It hasnot been cleared or approved by the U.S. Food and DrugAdministration. This assay has been validated pursuantto the CLIA regulations and is used for clinicalpurposes. Vitamin D, 25-OH, Total 23(A) 30 - 100 ng/mL [facility] Comment:Vitamin D, 25-Hydrox y reports concentrations of twocommon forms, 25-OHD2 and 25-OHD3. 25-OHD3 indicatesboth endogenous production and supplementation.25-OHD2 is an indicator of exogenous sources such asdiet or supplementation. Therapy is based onmeasurement of Total 25-OHD, with levels <20 ng/mLindicative of Vitamin D deficiency, while levelsbetween 20 ng/mL and 30 ng/mL suggest insufficiency.Optimal levels are > or = 30 ng/mL.For additional information, please refer [email or web address](This link is being provided for informational/educational purposes only.) 08/10/2024 1:12 PM EDT 08/10/2024 1:16 PM EDT Generic External Data Provider LAB BLOOD ORDERAB LES Final Result Performing Organization Address [facility] Co de Phone Number [facility] [address] [place] [phone] * Vitamin B12 (Cobalamin) and Folate Panel, Serum (08/10/2024 1:12 PM EDT) Vitamin B12 306 200 - 900 pg/mL [facility] Comment:NORMAL 200-900 PG/ML INDETERMINATE 160-199 PG/ML DEFICIENT < 160 PG/ML Folate 12.4 > or = 4.0 ng/mL [facility] Comment:Reference Values:> o r = 4.0 ng/mL< 4.0 ng/mL suggests folate deficiency Methotrexate, aminopterin and folinic acid(leucovorin) are chemotherapeutic agents whose molecularstructures are similar to folate; therefore, the Architectfolate assay cannot be used for patients using these drugs. 08/10/2024 1:12 PM EDT 08/10/2024 1:16 PM EDT Generic External Data Provider LAB BLOOD ORDERAB LES Final Result Performing Organization Address [facility] Co de Phone Number [facility] [address] [place] [phone] * TSH with Reflex to Free T4 (08/10/2024 1:12 PM EDT) Pathologist [facility] TSH reflex Free T4 1.18 0.32 - 4.0 uIU/mL [facility] 08/10/2024 1:12 PM EDT 08/10/2024 1:16 PM EDT Generic External Data Provider LAB BLOOD ORDERAB LES Final Result Performing Organization Address [facility] Phone Number [facility] [address] [place] [phone] * Tissue Transglutaminase Antibody, IgA (08/10/2024 1:12 PM EDT) Pathologist [facility] Transglutaminase IgA <1.0 U/mL [facility] Comment:Value Interpretation ----- <15.0 Antibody not detected> or = 15.0 Antibody detectedTHIS TEST WAS PERFORMED AT:[facility] [place] [id number] BENTON MD 08/10/2024 1:12 PM EDT 08/10/2024 1:16 PM EDT Generic External Data Provider LAB BLOOD ORDERAB LES Final Result Performing Organization Address [facility] Phone Number [facility] [address] [place] [phone] * Lipase (08/10/2024 1:12 PM EDT) Pathologist [facility] Lipase 33 8 - 78 U/L [facility] 08/10/2024 1:12 PM EDT 08/10/2024 1:16 PM EDT Generic External Data Provider LAB BLOOD ORDERAB LES Final Result Performing Organization Address [facility] Co de Phone Number [facility] [address] [place] [phone] * (ABNORMAL) Immunoglobulin E (08/10/2024 1:12 PM EDT) Immunoglobulin E 132(A) <BX=040 kU/L [facility] Comment:THIS TEST WAS PERFOR MED AT:[facility] [place] [id number] BENTON MD 08/10/2024 1:12 PM EDT 08/10/2024 1:16 PM EDT Generic External Data Provider LAB BLOOD ORDERAB LES Final Result [facility] [address] [place] [phone] * (ABNORMAL) Hepatic Function Panel (08/10/2024 1:12 PM EDT) Bilirubin, Total 0.2 0.0 - 1.0 mg/dL [facility] Bilirubin, Direct <0.2 0.0 - 0.5 mg/dL [facility] Aspartate Amino Transferase 29 5 - 37 U/L [facility] Alanine Aminotransferase 46(H) 0 - 40 U/L [facility] Total Protein 7.0 6.5 - 8.0 g/dL [facility] Albumin Level 4.3 3.5 - 5.0 g/dL [facility] Alkaline Phosphatase 125(H) 39 - 117 U/L [facility] 08/10/2024 1:12 PM EDT 08/10/2024 1:16 PM EDT Generic External Data Provider LAB BLOOD ORDERAB LES Final Result Performing Organization Address City/[facility]/ZIP Co de Phone Number [facility] [address] [place] [phone] * Hematoxylin and Eosin Stain (07/27/2024 12:09 PM EDT) 07/27/2024 12:0 9 PM EDT 07/27/2024 1:30 PM EDT Narrative [facility] - 07/28/2024 1:34 PM EDT ----- ------- Name: Len Gaspar ? Age/Sex: 44/M ? : 1980 Unit#: [id number] ?? Attend Dr: Susan Morse MD ?Re07/27/24 ?Status: DEP SDC ? Location: HO.SSS ?Disch: ? ----- ------- SPEC : [id number] ? RECD: 07/27/24-1329 ? STATUS: ??SOUT ? REQ NUM: [id number] ? ROB: 07/27/24-1202 ? SUBM DR: Susan Morse MD ? ENTERED: ??07/27/24-1334 ?SP TYPE: Surgical ? OTHR DR: Ninfa Baez MD ? ORDERED: ??HE Stain/12, Gross Micro L4/4, IHC, Special st. 2, H. pylori, AB/PAS ? Diagnosis ?? A. ??Stomach, antrum, biopsy: ??Gastric antral mucosa within normal limits; negative for ?? Helicobacter pylori, intestinal metaplasia and dysplasia. ? B. ??Stomach, body, biopsy: ??Gastric body mucosa within normal limits; negative for ?? Helicobacter pylori, intestinal metaplasia and dysplasia. ? C. ??Colon, ascending, polypectomy x2: ??Tubular adenoma (2); negative for high-grade ?? dysplasia. ? D. ??Rectum, polypectomy x2: ??Hyperplastic polyp (2). ?Clinical History Pre-Op Dx: ??GERD screening Post-Op Dx: GERD, gastritis, colon polyp, diverticulosis, hemorrhoids ?Microscopic Description A-D. ??Microscopic sections examined. ??No metaplastic changes are seen, supported by AB/PAS stains (A); no Helicobacter organisms are seen, supported by H. pylori immunostain (A). ? Material Received ?? A. Gastric antrum bx; r/o H. Pylori ?? B. Gastric body bx ?? C. Ascending colon polyps ?? D. Rectal polyp ? Gross Description Received in four parts. Part A: ??Received in formalin labeled ?gastric antrum bx, rule out H. pylori are 2 childress-pink rectangular tissue fragments each measuring 0.35 cm, submitted in toto in a cassette labeled A. Part B: ??Received in formalin labeled ?gastric body bx? are 2 childress- pink irregular and rectangular tissue fragments measuring less than 0.1 and 0.45 cm, submitted in toto in a cassette labeled B. Part C: ??Received in formalin labeled ?ascending colon polyps? are 4 childress-white and pink-red irregular and papular tissue fragments ranging from 0.2-0.45 cm, submitted in toto in a ? CONTINUED ON NEXT PAGE ----- ------- Name: Len Gaspar ? Age/Sex: 44/M ? : 1980 Unit#: [id number] ?? Attend Dr: Susan Morse MD ?Re07/27/24 ?Status: DEP SDC ? Location: HO.SSS ?Disch: ? ----- ------- SPEC : [id number] ? RECD: 07/27/24-5211 ? STATUS: ??SOUT ? REQ NUM: [id number] ? ROB: 07/27/24-1203 ? SUBM DR: Susan Morse MD ? ENTERED: ??07/27/24-1334 ?SP TYPE: Surgical ? OTHR DR: Ninfa Baez MD ? ORDERED: ??HE /, Gross Micro L4/4, IHC, Special st. 2, H. pylori, AB/PAS ? Gross Description ?(Continued) cassette labeled C. Part D: ??Received in formalin labeled ?rectal polyps (sic) are 2 childress-pink and pink-red papular tissue fragments each measuring 0.5 cm, submitted in toto in a cassette labeled D. CEDS Special stains ordered and performed: ??AB/PAS on A; immunostain for H. pylori on A. Copies To: ?? Ninfa Baez MD ?? [facility] ?? [address] [facility] ?? [place] [address] ?? [phone] ?? Susan Morse MD ?? [facility] ?? [address] ?? [place] [address] ?? [phone] ----- ------- Signed (signature on file) Cheryl Oswald MD 07/28/24 0188 ? ----- ------- ? END OF REPORT ? us Generic External Data Provider LAB BLOOD ORDERAB LES Final Result Performing Organization Address [facility] de Phone Number [facility] [address] [place] [phone] * (ABNORMAL) Lipid Panel, Standard (08/20/2023 2:08 PM EDT) Pathologist [facility] Triglycerides 481(H) <150 mg/dL [facility] Comment:Desirable Triglyceri de: less than 150 mg/dLBorderline High Triglyceride 150-199 mg/dLHigh Triglyceride: 200-499 mg/dLVery High Triglyceride: greater than or equal to 5OO mg/dL Cholesterol 174 <200 mg/dL [facility] Comment:Desirable Cholestero l: less than 200 mg/dLBorderline High Cholesterol: 200-239 mg/dLHigh Cholesterol: greater than 239 mg/dL LDL Cholesterol Calculated TNP <100 mg/dL [facility] Comment:Unable to calculate the LDL. The formula of Friedwald,Brown, and Oni is only valid if the triglycerides areless than 400 mg/dl. HDL Cholesterol 32(L) >40 mg/dL [facility] Comment:Desirable HDL: great er than 40 mg/dL Note: This HDL assay may give artificially low results in patients with liver disease. Blood Venous blood specimen / Unknown 08/20/2023 2:08 PM EDT 08/20/2023 6:56 PM EDT us Ninfa Dwyer MD LAB BLOOD ORDERABLES Final Result Performing Organization Address [facility] de Phone Number [facility] [address] [place] [phone] * Hepatitis C Antibody with Reflex to HCV, RNA, Quantitative, Real-Time PCR (07/15/2023 11:47 AM EST) Pathologist [facility] Hepatitis C Antibody Nonreactive Nonreactive [facility] Comment:Antibodies to HCV no t detected; does not exclude early acuteHCV infection. Blood Venous blood specimen / Unknown 07/15/2023 11:47 AM EST 07/15/2023 1:24 PM EST Ninfa Dwyer MD LAB BLOOD ORDERABLES Final Result Performing Organization Address [facility]/ZIP Co de Phone Number [facility] [address] [place] [phone] * HIV-1/2 Antigen and Antibodies, Fourth Generation, with Reflexes (07/15/2023 11:47 AM EST) Pathologist [facility] HIV AB/AG Nonreactive Nonreactive [facility] Comment:HIV-1 p24 Ag and/or HIV-1/HIV-2 Ab not detected.A test result that is nonreactive does not exclude thepossibility of exposure to or infection with HIV-1 and/orHIV-2. Nonreactive results in this assay for individualswith prior exposure to HIV-1 and/or HIV-2 may be due toantigen and antibody levels that are below the limit ofdetection of this assay.The Quire HIV Ag/Ab Combo assay result andsupplemental assay results should be interpreted inconjunction with the patient's clinical presentation,history and other laboratory results. If the results areinconsistent with clinical evidence, additional testing issuggested to confirm the result. Blood Venous blood specimen / Unknown 07/15/2023 11:47 AM EST 07/15/2023 1:24 PM EST us Ninfa Dwyer MD LAB BLOOD ORDERABLES Final Result Performing Organization Address City/[facility]/ZIP Co de Phone Number [facility] [address] [place] [phone] from Last 3 Months or Most Recently Relevant to Health Maintenance Insurance [facility] C3 HSN PARTIAL Care Teams Flight Communications Specialist Relationship Specialty Start Date End Date Ninfa Baez MD [address] [place] [phone] PCP - General Family Medicine 08/30/21
--- OUTSIDE RECORDS SUMMARY | 2024-09-22 12:44 | XMS_ITS | Encounter Summary ---
Author Organization [employer] Address [address] [place] [address] Care Team Providers Care Vessel Engineer Name Role Phone Ninfa Baez MD Primary Care Provide r Encounter Details Date Type Department Care Team (Late st Contact Info) Description 08/22/2023 Orders Only [facility] MEDICINE [address] [place], [place] [phone] Ninfa Baez MD [address] [place], [place] [phone] Social History Tobacco Use Types Packs/Day Years [...] as of this encounter Plan of Treatment Upcoming Encounters Date Type Department Care Team (Late st Contact Info) Description 11/09/2024 9:45 AM EDT Office Visit [facility] MEDICINE [address] [place] [phone] Ninfa Baez MD [address] [place] [phone] documented as of this encounter Visit Diagnoses Not on filedocumented in this encounter Additional Health Concerns Assessment Noted Time PHQ-9 Depression Total Score: 0 07/15/19 24 10:46 AM EST documented as of this encounter Care Teams Vessel Engineer Relationship Specialty Start Date End Date Ninfa Baez MD [address] [place] [phone] PCP - General Family Medicine 08/30/21 documented as of this encounter
--- OUTSIDE RECORDS SUMMARY | 2024-09-22 12:44 | XMS_ITS | Clinical Summary ---
Author Organization [facility] Address [address] [place] [address] Care Team Providers Care Bander And Cellophaner Machine Name Role Phone Harriet Elkins [facility] Primary Care Provider [phone] Source Comments PLEASE NOTE, if this patient [...] Diagnosed Date H. pylori infection 03/17/2016 Immunizations Immunization Administration Dates Next Due INFLUENZA, SEASONAL, INJECTABLE [...] 05/01/2018 3:10 PM EST Plan of Treatment Not on file Procedures Procedure Name Priority Date/Time Associated Diagnosis [...] & HIV-2 ANTIBODIES (05/01/2018 3:45 PM EST) [facility] HIV 1 AND 2 ANTIBODY SCREEN NEGATIVE NEGATIVE [employer] [facility] Comment: This assay is a [...] PM EST 05/01/2018 7:33 PM EST Narrative [facility] - 05/01/2018 8:59 PM EST [employer], a member of [address] [address] Hyster Machine Operator - Sharmaine [place]ced[place] [id number] ORD# [id number] [facility] - BLOOD DRAW Final Result Performing Organization Address City/[facility]/ZIP Co de Phone Number [address] [address], [place] [phone] * (ABNORMAL) LIPID PANEL (05/01/2018 3:45 PM EST) CHOLESTEROL 180 0 - 200 mg/dL [facility] TRIGLYCERIDES 218(H) 0 - 150 mg/dL [facility] HDL CHOLESTEROL 37(L) >40 mg/dL [facility] LDL CALCULATED 100 0 - 100 mg/dL [facility] TC-HDLC RATIO 4.9(H) 0 - 4.4 mg/dL [facility] Blood specimen (specimen) Blood / Unknown 05/01/2018 3:45 PM EST 05/01/2018 7:33 PM EST Narrative [facility] - 05/01/2018 8:11 PM EST [employer], a member of [address] [address] Hyster Machine Operator - Sharmaine Salcedo [place] [id number] ORD# [id number] [facility] - BLOOD DRAW Edited Result - Final Performing Organization Address City/[facility]/ZIP Co de Phone Number [address] [address], [place] [phone] * COMPRE METAB PANEL (05/01/2018 3:45 PM EST) GLUCOSE 93 70 - 100 mg/dL [facility] Comment:Reference range appl icable to fasting specimens only BUN 13 5 - 25 mg/dL [facility] CREAT 0.86 0.7 - 1.3 mg/dL [facility] GLOMERULAR FILTRATION RATE > 60 [facility] Comment: If patient is -[place], multiply result by 1.21 Chronic Kidney Disease: < 60 ml/min/1.73 square meters Kidney Failure: < 15 ml/min/1.73 square meters SODIUM 142 133 - 145 mmol/L [facility] POTASSIUM 3.9 3.5 - 5.5 mmol/L [facility] CHLORIDE 105 96 - 110 mmol/L [facility] CO2 30 21 - 32 mmol/L [facility] ANION GAP 7 3 - 11 [facility] CALCIUM 8.8 8.5 - 10.5 mg/dL [facility] TOTAL PROTEIN 7.5 6.0 - 8.0 G/dL [facility] ALBUMIN 4.2 3.2 - 5.0 G/dL [facility] BILI, TOTAL 0.2 0.0 - 1.4 mg/dL [facility] SGOT 19 10 - 42 U/L [facility] SGPT 37 10 - 60 U/L [facility] ALK PHOS 117 42 - 121 U/L [facility] Blood specimen (specimen) Blood / Unknown 05/01/2018 3:45 PM EST 05/01/2018 7:33 PM EST Narrative [facility] - 05/01/2018 8:11 PM EST [facility] [employer], a member of [address] [address] Hyster Machine Operator - Sharmaine Salcedo MD [place] [id number] ORD# [id number] [facility] - BLOOD DRAW Edited Result - Final [facility] [address] [place] [address], [place] [phone] from Last 3 Months or Most Recently Relevant to Health Maintenance Insurance [employer] Advance Directives Healthcare Agents on File Name Relationship Healthcare Agent Relationshi p Communication [facility] Care Agent Care Teams Bander And Cellophaner Machine Relationship Specialty Start Date End Date Harriet Elkins FNP [address] [place] [address] PCP - General 12/11/18
== END 2024-09-22 11:42 | disposition home or self-care (01) ==
LOC: HO.HPSW 11:00
PROVIDERS: PCP Internal Medicine; Visit Provider Nurse Practitioner Family
DX: J45.909 Unspecified asthma, uncomplicated (principal); Z91.09 Other allergy status, other than to drugs and biological substances; R06.81 Apnea, not elsewhere classified; R40.0 Somnolence
CPT/HCPCS: 99214

== ENCOUNTER → 2024-09-22 11:00 | Outpatient (BNVA) | payer MEDICAID, SELFPAY | PROVIDERS: PCP Internal Medicine; Visit Provider Nurse Practitioner Family | DX: J45.909 Unspecified asthma, uncomplicated (principal); R06.81 Apnea, not elsewhere classified; R40.0 Somnolence; Z91.09 Other allergy status, other than to drugs and biological substances | CPT/HCPCS: 94640; 99212 ==

== ENCOUNTER 2024-11-03 10:49 | Outpatient (AMB) | payer MEDICAID, SELFPAY ==
[2024-11-03 10:54] VITALS: BP 140/96; PULSE 90; O2SAT 98; BMI 34.6
--- NOTE | 2024-11-03 10:54 | MHC.OFFVIS ---
Vital Signs 11/03/24 10:54 Height 5 ft 11 in Weight 248 lb 6 oz BMI 34.6 BP 140/96 H Blood Pressure Location Lt brachial Position Sitting Pulse 90 Pulse Source Pulse Oximeter Pulse Oximetry (%) 98 Oxygen Delivery Method Room Air Intake Visit Reasons: Asthma Allergies avocado Allergy (Severe, Verified 11/03/24 10:56) Shortness of Breath Seasonal Allergies Allergy (Intermediate, Verified 11/03/24 10:56) Shortness of Breath kiwi Allergy (Unknown, Verified 11/03/24 10:56) Unknown peach Allergy (Unknown, Verified 11/03/24 10:56) Unknown HPI HPI Asthma: Details: Len is a pleasant 44 year old male, current minimal marijuana smoker, with underlying asthma since childhood and allergic rhinitis. 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 At the last visit, he reported suboptimal control on Breo 200 mcg and Singulair, switched to Trelegy with minimal improvement. He continues to report dyspnea, wheezing and chest tightness. He was seen on 09/22 with an exacerbation treated with prednisone with resolution of symptoms, unfortunately reports URI over the last two weeks, with symptoms as well, including productive cough with yellow sputum and chest congestion. Denies fevers or chills. [facility] Medical History (Updated 11/03/24 @ 13:25 by Anna Mitchell NP) Diverticulosis Normal esophagogastroduodenoscopy (EGD) Chronic back pain Asthma Surgical History Hx of colonoscopy No pertinent past surgical history Family History Father Kidney disease, chronic, end stage on dialysis Kidney transplant status Social History Are you a primary critical care clinical nurse specialist to a significant other at home: No Do you presently have visiting nurse or other home services: No Alcohol intake: never Patient Tobacco Use Status: Never used Tobacco Substance Use Type: Marijuana Review of Systems Const Denies chills, Denies excessive sweating, Denies fever(s), Denies headache(s) and Denies night sweats Eyes Denies dry eyes, Denies irritation and Denies itchy eyes ENT Reports Normal hearing present, Denies headache(s), Denies nasal congestion, Denies nasal discharge, Denies post nasal drip and Denies sore throat Card Denies chest pain, Denies chest pain at rest, Denies chest pain with activity, Denies claudication, Denies leg edema, Denies orthopnea and Denies paroxysmal nocturnal dyspnea Resp Reports change in phlegm color, Reports chest congestion, Reports cough, Denies pain on inspiration, Denies pain with cough, Denies stridor and Reports wheezing Musc Denies myalgias Neuro Reports Normal hearing present and Denies headache(s) Endo Denies excessive sweating Margarito/Lymph Denies lymphadenopathy Aller/Immun Denies itchy eyes, Denies seasonal rhinorrhea and Reports wheezing Physical Exam Vital Signs: Last Vital Signs Pulse 90 11/03/24 10:54 BP 140/96 H 11/03/24 10:54 Pulse Ox 98 11/03/24 10:54 Oxygen Delivery Method Room Air 11/03/24 10:54 BMI result Body Mass Index 34.6 Const General: cooperative, healthy appearing, comfortable, no acute distress, well developed and alert Nutritional Appearance: obese Orientation/consciousness: patient oriented x3 Limitations: no limitations HEENT Head: Yes normal to inspection, Yes normocephalic and Yes atraumatic Ears: hearing grossly normal bilaterally and external ears normal Eyes General: appearance normal, both eyes and all related structures Eyelids: Yes eyelids normal Sclerae: sclerae normal EOM: EOMs intact bilaterally Neck Neck: Yes normal visual inspection and Yes no lymphadenopathy Lymphatic: no lymphadenopathy noted Chest Chest palpation & inspection: normal inspection of the chest Resp Effort & Inspection: normal respiratory effort, able to speak in complete sentences, no cough, no stridor, not tachypneic, no tripod positioning and no use of accessory muscles Auscultation: no rhonchi, no wheezes and diminished lung sounds Cardio Jugular venous distension: no JVD Rate: regular rate Rhythm: regular rhythm Skin Other: warm, dry General skin exam: no rashes or lesions noted Neuro General: patient oriented x3 Cranial nerves: Yes Normal hearing present Cognition (Neuro): normal cognition Gait exam (Neuro): Normal gait present Extrem General: Yes normal to inspection, Yes capillary refill normal, Yes no clubbing, cyanosis or edema and Yes no pedal edema Psych Appearance: grossly normal and well kempt Speech and movement: Normal speech and movement present and Clear speech present Affect: normal affect Attitude: cooperative Thought process: Normal thought process present Thought content: Normal thought content present Insight: Good insight present (Psych) Judgement: Good judgement present (Psych) Assessment & Plan Assessment & Plan (1) Asthma: Code(s): J45.909 - Unspecified asthma, uncomplicated Category: Medical Qualifiers: Asthma severity: moderate Asthma persistence: persistent Asthma complication type: with acute exacerbation Qualified Code(s): J45.41 - Moderate persistent asthma with (acute) exacerbation (2) Environmental allergies: Code(s): Z91.09 - Other allergy status, other than to drugs and biological substances Category: Medical (3) Witnessed episode of apnea: Code(s): R06.81 - Apnea, not elsewhere classified Category: Medical (4) Daytime somnolence: Code(s): R40.0 - Somnolence Category: Medical Plan Will treat acute bronchitic symptoms with azithromycin. He is aware if symptoms do not improve to call office. Will hold off on prednisone as patient not wheezing on exam today. Patient trialed Breo and now Trelegy, continuing with suboptimal effect Prior RAST + IgE 132, noting significant triggers with allergies. Will initiate prescription for Xolair 225 mg q 2 weeks. Again discussed ways to minimize allergen exposure and negative effects of working in a [employer] with asthma. At the last visit, orders placed for PFT and home sleep study which are scheduled in the next few weeks. All questions were answered and patient is in agreement of plan. Will follow up in 6-8 weeks or sooner if needed. Medications: New azithromycin For 250 mg dose pack: take 500 mg today (day 1), then 250 mg for 4 days (days 2-5) PO 6 tabs 0RF Coding Level of Care Code Est Pt Level 4 (15087) Complex EM visit Add On G2211 Diagnoses Moderate persistent asthma with acute exacerbation J45.41 Asthma severity: moderate Asthma persistence: persistent Asthma complication type: with acute exacerbation Environmental allergies Z91.09 Witnessed episode of apnea R06.81 Daytime somnolence R40.0
--- OUTSIDE RECORDS SUMMARY | 2024-11-03 12:17 | XMS_ITS | Clinical Summary ---
Author Organization [facility] ity Address [address] [place] [address] Care Team Providers Care Jig Borer Name Role Phone Unavailable Primary Care Provider [...]
== END 2024-11-03 11:35 | disposition home or self-care (01) ==
LOC: HO.HPSW 10:50
PROVIDERS: PCP Internal Medicine; Visit Provider Nurse Practitioner Family
DX: J45.41 Moderate persistent asthma with (acute) exacerbation (principal); Z91.09 Other allergy status, other than to drugs and biological substances; R06.81 Apnea, not elsewhere classified; R40.0 Somnolence
CPT/HCPCS: 99214

== ENCOUNTER → 2024-11-03 10:49 | Outpatient (BNVA) | payer MEDICAID, SELFPAY | PROVIDERS: PCP Internal Medicine; Visit Provider Nurse Practitioner Family | DX: J45.41 Moderate persistent asthma with (acute) exacerbation (principal); R06.81 Apnea, not elsewhere classified; Z91.09 Other allergy status, other than to drugs and biological substances; R40.0 Somnolence | CPT/HCPCS: 99212 ==

== ENCOUNTER 2024-11-10 08:50 | Outpatient (REF) | payer MEDICAID, SELFPAY ==
--- NOTE | 2024-11-10 08:53 | PFT_ITS ---
Flows: FEV1: 77 % of predicted at 3.23 L FVC: 66 % of predicted at 3.46 L FEV1/FVC: 93 % Bronchodilator response: Absent Volumes: Total lung capacity: 74 % of predicted at 5.54 L Residual volume: 93 % of predicted at 1.66 L Slow vital capacity: 68 % of predicted at 3.85 L Expiratory reserve volume: 26 % of predicted at 0.41 L Diffusion capacity: Normal Impression: Moderate restrictive ventilatory defect with no bronchodilator response. Decreased expiratory reserve volume suggests extrathoracic restriction likely secondary to abdominal obesity. MTDD
--- OUTSIDE RECORDS SUMMARY | 2024-11-10 09:13 | XMS_ITS | Clinical Summary ---
Author Organization [facility] ity Address [address] [place] [address] Care Team Providers Care Player Services Representative Name Role Phone Unavailable Primary Care Provider [...]
[2024-11-10 09:32] VITALS: PULSE 78; O2SAT 98
== END 2024-11-10 08:51 | disposition home or self-care (01) ==
LOC: HO.RESP 08:50
PROVIDERS: PCP Internal Medicine; Visit Provider Nurse Practitioner Family
DX: J45.909 Unspecified asthma, uncomplicated (principal)
CPT/HCPCS: 94010; 94640; 94727; 94729

== ENCOUNTER → 2024-11-10 08:53 | Outpatient (BNV) | payer MEDICAID, SELFPAY | PROVIDERS: PCP Internal Medicine; Visit Provider Internal Medicine Pulmonary Disease | DX: R06.89 Other abnormalities of breathing (principal) | CPT/HCPCS: 94060; 94727; 94729 ==

== ENCOUNTER → 2024-12-07 13:55 | Outpatient (REF) | payer MEDICAID, SELFPAY ==
--- OUTSIDE RECORDS SUMMARY | 2024-12-07 14:46 | XMS_ITS | Clinical Summary ---
Author Organization [employer] Address [address] [place] [address] Care Team Providers Care Vp Biology Name Role Phone Ninfa Baez MD Primary Care Provide r Allergies Active Allergy Reactions Criticality Noted Date Comments Avocado 12/02/2023 Pistachio Nut (Diagnostic) Medications cholecalciferol (Vitamin D-3) 50 MCG (1999 UT) capsule TAKE 1 CAPSULE BY MOUTH EVERY DAY 90 capsule 1 09/11/19 23 Active Mometasone Furoate (Asmanex HFA) 100 MCG/ACT aerosolIndicatio ns:Mild intermittent asthma, unspecified whether complicated Inhale 2 puffs 2 times daily. 13 g 2 07/15/19 24 Active pantoprazole (Protonix) 40 MG EC tabletIndication s:Epigastric pain Take 1 tablet (40 mg) by mouth before breakfast. Do not crush, chew, or split. 30 tablet 07/18/19 24 Active Allergy Relief 180 MG tabletIndication s:Seasonal allergies TAKE 1 TABLET(180 MG) BY MOUTH IN THE MORNING 90 tablet 1 09/11/19 24 Active albuterol 108 (90 Base) MCG/ACT inhalerIndicatio ns:Mild intermittent asthma, unspecified whether complicated Inhale 2 puffs every 4-6 hours as needed 18 g 07/15/19 24 025 Discontinued famotidine (Pepcid) 40 MG tabletIndication s:Chronic gastritis, presence of bleeding unspecified, unspecified gastritis type Take 1 tablet (40 mg) by mouth 2 times daily. 180 tablet 1 12/02/19 24 025 Discontinued Active Problems Problem Noted Date Diagnosed Date Class 1 obesity due to exces s calories with serious comorbidity and body mass index (BMI) of 34.0 to 34.9 in adult 11/09/2024 Assessment & Plan (11/09/2024 1:32 PM EDT): Today extensive discussion was done about life style modifications I advise healthy diet (low calorie) and cardiovascular exercise Moderate persistent asthma 11/09/2024 Assessment & Plan (11/09/2024 1:33 PM EDT): Continue to follow-up with pulmonology Gastritis 12/02/2023 Assessment & Plan (11/09/2024 1:32 PM EDT): I advise patient to avoid NSAIDs, spicy and acid food, I advise to eat at the same time every day, I advise to elevate the head of the bed and take medications as prescribe Continue to follow-up with GI Assessment & Plan (12/02/2023 10:21 AM EDT): I advise patient to avoid NSAIDs, spicy and acid food, I advise to eat at the same time every day, I advise to elevate the head of the bed and take medications as prescribe It was advise not to miss his appointment with Gastroenterology Encounter for preventive health examination 06/21 Assessment & Plan (07/15/2023 1:36 PM EST): See HPI Seasonal allergies 07/15/2023 Low vision 07/12/2023 Heartburn 07/12/2023 Elevated blood pressure reading 07/12/2023 Resolved Problems Problem Noted Date Diagnosed Date Resolved Date Enteritis due to Norovirus 08/20/2023 0 11/09/2024 Assessment & Plan (08/20/2023 2:16 PM EDT): Now resolved IBETH (acute kidney injury) 08/20/2023 Assessment & Plan (08/20/2023 2:16 PM EDT): BMP will be repeated Epigastric pain 07/15/2023 11/09/2024 Assessment & Plan (08/20/2023 2:15 PM EDT): [...] the bed and take medications as prescribe Mild intermittent asthma 07/12/2023 Assessment & Plan (07/15/2023 1:35 PM EST): Patient educated to avoid asthma triggers Encounters Date Type Department Care Team Description 11/09/2024 9:45 AM EDT Office Visit [facility] [address] [place] [phone] Ninfa Baez MD Mild intermittent asthma without complication (Primary Dx); Chronic gastritis, presence of bleeding unspecified, unspecified gastritis type; Class 1 obesity due to excess calories with serious comorbidity and body mass index (BMI) of 34.0 to 34.9 in adult; Moderate persistent asthma, unspecified whether complicated 11/09/2024 Travel 11/04/2024 Telephone [facility] [address] [place] [phone] Ninfa Baez MD Chart Prep 10/29/2024 Patient Outreach [facility] [address] [place] [address] [phone] Ninfa Baez MD Pre-visit Planning (SDOH screening negative and tobacco screening positive) from Last 3 Months Immunizations Immunization Administration Dates Next Due Hep B, adult 11/09/2024 Influenza, IIV3, injectable 03/01/2016 Pfizer Covid-19 Vaccine 12+ 09/12/2020, Pneumococcal Conjugate PCV 20 12/02/2023 Tdap 05/01/2018 Social History Tobacco Use Types Packs/Day Years Used Date Smoking Tobacco: Never Passive Smoke Exposure: Never Smokeless Tobacco: Never Tobacco Cessation:Counseling Given: No Alcohol Use Standard Drinks/Week Comments Never 0 (1 standard drink = 0.6 oz pur e alcohol) Depression Answer Date Recorded Patient Health Questionnaire-9 Score 0 07/15/2023 Patient Health Questionnaire-9 Score 0 07/15/2023 Last PHQ-9: Questionnaire Data Not on file 0 07/15/2023 Housing Stability Answer Date Recorded What is your housing situation today? I have adilsonromel corona 10/29/[address] you li ve. Do you have problems with any of the following? None of the above 10/29/2024 Food Insecurity Answer Date Recorded Within the past 12 months, y ou worried that your food would run out before you got money to buy more: Never True 10/29/2024 Within the past 12 months,th e food you bought just didn't last and you didn't have enough money to get more: Never True 04/2025 Transportation Answer Date Recorded In the past 12 months, has l ack of transportation kept you from medical appts, meetings, work or from getting things needed for daily living? No 10/29/2024 Utilities Answer Date Recorded In the past 12 months, has t he electric, gas, oil or water company threatened to shut off services in your home? Yes 10/29/2024 Depression Answer Date Recorded Patient Health Questionnaire-2 Score 0 07/15/2023 Internet Access Answer Date Recorded Internet Access Q1 Yes 11/26/2024 Internet Access Q2 Not on file 11/26/2024 Sex and Gender Information Value Date Recorded Sex Assigned at Male 03/19/2022 10:40 AM EDT Legal Sex Male 10:40 AM EDT Gender Identity Male 03/19/2022 10:40 AM EDT Sexual Orientation Straight 03/19/2022 10 :40 AM EDT Last Filed Vital Signs Vital Sign Reading Time Taken Comments Blood Pressure 120/78 11/09/2024 10:40 AM EDT Pulse 70 11/09/2024 9:52 AM EDT Temperature 36.3 C (97.3 F) 11/09/2024 9:52 AM EDT Respiratory Rate 20 11/09/2024 9:52 AM EDT Oxygen Saturation 98% 12/02/2023 9:45 AM EDT Inhaled Oxygen Concentration - - Weight 112 kg (246 lb) 11/09/2024 9:52 AM EDT Height 180.3 cm (5' 11 ) 12/02/2023 9:45 AM EDT Body Mass Index 34.31 12/02/2023 9:45 AM EDT Plan of Treatment Health Maintenance Due Date Last Done Comments CT Colonography 1979 Colonoscopy 1979 Colorectal Cancer Screening 1979 FIT DNA/Cologuard 1979 FIT 1979 FOBT 1979 Sigmoidoscopy 1979 Family Planning (PISQ) 1994 HPV Vaccines (1 - Male 3-dose series) 1994 COVID-19 Vaccine (3 - season) 2024 09/12/2020, 08/22/2020 Depression Screening 07/15/2024 07/15/2023, 07/15/19 24 Hepatitis B Vaccines (2 of 3 - 19+ 3-dose series) 12/07/2024 11/09/2024 Influenza Vaccine (#1) 2025 03/01/2016 SDOH Screening 10/29/2025 10/29/2024 Alcohol/Substance Use Screening 11/09/2025 11/09/2024 Disability Screening 11/09/2025 11/09/2024 Tobacco Screening 11/09/2025 11/09/2024 DTaP/Tdap/Td Vaccines (2 - Td or Tdap) 05/01/2028 05/01/2018 Lipid Panel 08/19/2028 08/20/2023, 08/30/2021 Zoster Vaccines (1 of 2) 2029 RSV Patients and Patients Aged 60 years or older (1 - 1-dose 75+ series) 2054 HIV Screening Completed 07/15/2023, 09/18, 08/30/2021, Additional history exists Hepatitis C Screening Completed 07/15/2023 , 10/09/2021, 08/30/2021 Pneumococcal Vaccine: Pediatrics (0 to 5 Years) and At-Risk Patients (6 to 49) Years Completed 12/02/2023 HIB Vaccines Aged Out No [...] 2:08 PM EDT) Triglycerides 481(H) <150 mg/dL [facility] Comment:Desirable Triglyceri de: less than 150 mg/dLBorderline High Triglyceride 150-199 mg/dLHigh Triglyceride: 200-499 mg/dLVery High Triglyceride: greater than or equal to 5OO mg/dL Cholesterol 174 <200 mg/dL [facility] Comment:Desirable Cholestero l: less than 200 mg/dLBorderline High Cholesterol: 200-239 mg/dLHigh Cholesterol: greater than 239 mg/dL LDL Cholesterol Calculated TNP <100 mg/dL [facility] Comment:Unable to calculate the LDL. The formula of Friedwald,Brown, and Oni is only valid if the triglycerides areless than 400 mg/dl. HDL Cholesterol 32(L) >40 mg/dL [facility] Comment:Desirable HDL: great er than 40 mg/dL Note: This HDL assay may give artificially low results in patients with liver disease. Blood Venous blood specimen / Unknown 08/20/2023 2:08 PM EDT 08/20/2023 6:56 PM EDT Ninfa Dwyer MD LAB BLOOD ORDERABLES Final Result Performing Organization Address [place] Co de Phone Number [facility] [address] [place] [phone] * Hepatitis C Antibody with Reflex to HCV, RNA, Quantitative, Real-Time PCR (07/15/2023 11:47 AM EST) Hepatitis C Antibody Nonreactive Nonreactive [facility] Comment:Antibodies to HCV no t detected; does not exclude early acuteHCV infection. Blood Venous blood specimen / Unknown 07/15/2023 11:47 AM EST 07/15/2023 1:24 PM EST Ninfa Dwyer MD LAB BLOOD ORDERABLES Final Result Performing Organization Address [place] Co de Phone Number [facility] [address] [place] [phone] * HIV-1/2 Antigen and Antibodies, Fourth Generation, with Reflexes (07/15/2023 11:47 AM EST) HIV AB/AG Nonreactive Nonreactive [facility] Comment:HIV-1 p24 Ag and/or HIV-1/HIV-2 Ab not detected.A test result that is nonreactive does not exclude thepossibility of exposure to or infection with HIV-1 and/orHIV-2. Nonreactive results in this assay for individualswith prior exposure to HIV-1 and/or HIV-2 may be due toantigen and antibody levels that are below the limit ofdetection of this assay.The [employer] HIV Ag/Ab Combo assay result andsupplemental assay results should be interpreted inconjunction with the patient's clinical presentation,history and other laboratory results. If the results areinconsistent with clinical evidence, additional testing issuggested to confirm the result. Blood Venous blood specimen / Unknown 07/15/2023 11:47 AM EST 07/15/2023 1:24 PM EST Ninfa Dwyer MD LAB BLOOD ORDERABLES Final Result [facility] [address] [place] [phone] from Last 3 Months or Most Recently Relevant to Health Maintenance Insurance [facility] Care Teams Vp Biology Relationship Specialty Start Date End Date Ninfa Baez MD [address] [place] [address] PCP - General Family Medicine 08/30/21
--- OUTSIDE RECORDS SUMMARY | 2024-12-07 14:46 | XMS_ITS | Clinical Summary ---
Author Organization [facility] Address [address] [place] [address] Care Team Providers Care Technician Automatic Name Role Phone Harriet Elkins [facility] Primary Care Provider [phone] Source Comments PLEASE NOTE, if this patient [...] 68 05/01/2018 3:10 PM EST Temperature 36.9 C (98.5 F) 05/01/2018 3:10 PM EST Respiratory Rate 17 05/01/2018 3:10 PM EST Oxygen Saturation 95% 03/08/2016 2:08 PM EDT Inhaled Oxygen Concentration - - Weight 95.3 kg (210 lb) 05/01/2018 3:10 PM EST Height 180.3 cm (5' 11 ) 05/01/2018 3:10 PM EST Body Mass Index 29.29 05/01/2018 3:10 PM EST Plan of Treatment Not on file Insurance [employer] Advance Directives Healthcare Agents on File Name Relationship Healthcare Agent Relationshi p Communication Vera Reji Mother Health Care Agent Care Teams Technician Automatic Relationship Specialty Start Date End Date Harriet Elkins FNP [address] [place], [place] [phone] PCP - General 12/11/18
--- OUTSIDE RECORDS SUMMARY | 2024-12-07 14:46 | XMS_ITS | Clinical Summary ---
Author Organization [facility] ity Address [address] [place] [address] Care Team Providers Care Fishing Hand Name Role Phone Unavailable Primary Care Provider [...] 1998 COVID-19 Vaccine (2023-2 5 season) 2024 Depression Screening 05/20/2024 Influenza Vaccine (#1) 2025 HIB Vaccines Aged Out No longer [...] 5 Years) and At-Risk Patients (6 to 49 Years) Aged Out No longer eligible b ased on patient's age to complete this topic RSV Immunization Patients Un triston 20 months Aged Out No longer eligible b ased on patient's age to complete this topic Varicella Vaccines Aged Out No longer eligible based on patient's age to complete this topic
== END ==
LOC: HO.SL 13:55
PROVIDERS: PCP Internal Medicine; Visit Provider Nurse Practitioner Family
DX: G47.33 Obstructive sleep apnea (adult) (pediatric) (principal)
CPT/HCPCS: 95806

== ENCOUNTER → 2024-12-07 14:15 | Outpatient (BNV) | payer MEDICAID, SELFPAY | PROVIDERS: PCP Internal Medicine; Visit Provider Internal Medicine | DX: G47.33 Obstructive sleep apnea (adult) (pediatric) (principal) | CPT/HCPCS: 95806 ==

== ENCOUNTER 2024-12-22 11:04 | Outpatient (AMB) | payer MEDICAID, SELFPAY ==
[2024-12-22 11:09] VITALS: BP 132/96; PULSE 94; O2SAT 97; BMI 34.7
--- NOTE | 2024-12-22 11:09 | A.OFFVIS_ITS ---
Vital Signs 12/22/24 11:09 Height 5 ft 11 in Weight 248 lb 8 oz BMI 34.7 BP 132/96 H Blood Pressure Location Rt brachial Position Sitting Pulse 94 Pulse Source Pulse Oximeter Pulse Oximetry (%) 97 Oxygen Delivery Method Room Air Intake Visit Reasons: Asthma Allergies avocado Allergy (Severe, Verified 12/22/24 11:15) Shortness of Breath Seasonal Allergies Allergy (Intermediate, Verified 12/22/24 11:15) Shortness of Breath kiwi Allergy (Unknown, Verified 12/22/24 11:15) Unknown peach Allergy (Unknown, Verified 12/22/24 11:15) Unknown HPI HPI Asthma: Details: Len is a pleasant 44 year old male, current minimal marijuana smoker, with underlying asthma since childhood and allergic rhinitis. 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 At the last visit, he reported suboptimal control on Breo 200 mcg and Singulair, switched to Trelegy with minimal improvement and order placed to start Xolair, which he is awaiting. He continues to report dyspnea, as well as intermittent wheezing and chest tightness. Today he presents to review PFT and home sleep study. [facility] Medical History (Updated 11/03/24 @ 13:25 by Anna Mitchell NP) Diverticulosis Normal esophagogastroduodenoscopy (EGD) Chronic back pain Asthma Surgical History Hx of colonoscopy No pertinent past surgical history Family History Father Kidney disease, chronic, end stage on dialysis Kidney transplant status Social History Are you a primary healthcare administration internship to a significant other at home: No Do you presently have visiting nurse or other home services: No Alcohol intake: never Patient Tobacco Use Status: Never used Tobacco Substance Use Type: Marijuana Review of Systems Const Denies chills, Denies excessive sweating, Denies fever(s), Denies headache(s) and Denies night sweats Eyes Denies dry eyes, Denies irritation and Denies itchy eyes ENT Reports Normal hearing present, Denies headache(s), Denies nasal congestion, Denies nasal discharge, Denies post nasal drip and Denies sore throat Card Denies chest pain, Denies chest pain at rest, Denies chest pain with activity, Denies claudication, Denies leg edema, Denies orthopnea and Denies paroxysmal nocturnal dyspnea Resp Reports change in phlegm color, Reports chest congestion, Reports cough, Denies pain on inspiration, Denies pain with cough, Denies stridor and Reports wheezing Musc Denies myalgias Neuro Reports Normal hearing present and Denies headache(s) Endo Denies excessive sweating Margarito/Lymph Denies lymphadenopathy Aller/Immun Denies itchy eyes, Denies seasonal rhinorrhea and Reports wheezing Physical Exam Vital Signs: Last Vital Signs Pulse 94 12/22/24 11:09 BP 132/96 H 12/22/24 11:09 Pulse Ox 97 12/22/24 11:09 Oxygen Delivery Method Room Air 12/22/24 11:09 BMI result Body Mass Index 34.7 Const General: cooperative, healthy appearing, comfortable, no acute distress, well developed and alert Nutritional Appearance: obese Orientation/consciousness: patient oriented x3 Limitations: no limitations HEENT Head: Yes normal to inspection, Yes normocephalic and Yes atraumatic Ears: hearing grossly normal bilaterally and external ears normal Eyes General: appearance normal, both eyes and all related structures Eyelids: Yes eyelids normal Sclerae: sclerae normal EOM: EOMs intact bilaterally Neck Neck: Yes normal visual inspection and Yes no lymphadenopathy Lymphatic: no lymphadenopathy noted Chest Chest palpation & inspection: normal inspection of the chest Resp Effort & Inspection: normal respiratory effort, able to speak in complete sentences, no cough, no stridor, not tachypneic, no tripod positioning and no use of accessory muscles Auscultation: no rhonchi, no wheezes and diminished lung sounds Cardio Jugular venous distension: no JVD Rate: regular rate Rhythm: regular rhythm Skin Other: warm, dry General skin exam: no rashes or lesions noted Neuro General: patient oriented x3 Cranial nerves: Yes Normal hearing present Cognition (Neuro): normal cognition Gait exam (Neuro): Normal gait present Extrem General: Yes normal to inspection, Yes capillary refill normal, Yes no clubbing, cyanosis or edema and Yes no pedal edema Psych Appearance: grossly normal and well kempt Speech and movement: Normal speech and movement present and Clear speech present Affect: normal affect Attitude: cooperative Thought process: Normal thought process present Thought content: Normal thought content present Insight: Good insight present (Psych) Judgement: Good judgement present (Psych) Assessment & Plan Assessment & Plan (1) Asthma: Code(s): J45.909 - Unspecified asthma, uncomplicated Category: Medical Qualifiers: Asthma complication type: with acute exacerbation Asthma persistence: persistent Asthma severity: moderate Qualified Code(s): J45.41 - Moderate persistent asthma with (acute) exacerbation (2) Environmental allergies: Code(s): Z91.09 - Other allergy status, other than to drugs and biological substances Category: Medical (3) Witnessed episode of apnea: Code(s): R06.81 - Apnea, not elsewhere classified Category: Medical (4) Daytime somnolence: Code(s): R40.0 - Somnolence Category: Medical Plan Patient continues to report moderate control with Trelegy, continuing with dyspnea and intermittent wheezing. Prior RAST + IgE 132, noting significant triggers with allergies. Order placed for Xolair 225 mg q 2 weeks, awaiting this to be scheduled. Reviewed PFT which revealed moderate restrictive ventilatory defect with no bronchodilator response. Decreased expiratory reserve volume suggests extrathoracic restriction likely secondary to abdominal obesity. DLCO WNL. Home sleep study revealed moderate CORNEL with AHI 27.3, minimal nocturnal hypoxemia <5.1 minutes, lowest 78%, average oxygen saturation 94%. Since patient is quite symptomatic, will start CPAP therapy. Will send in prescription for APAP mode and pressure settings of 6-20 cm H2O with close monitoring for compliance and benefits. Sleep hygiene education reviewed. He is aware if there are any issues with the mask or CPAP machine, will call the DME or office. All questions were answered and patient is in agreement of plan. Will follow up in 8 weeks. Orders: Orders XR chest 2V Today R05.9 - Cough, unspecified Coding Level of Care Code Est Pt Level 4 (91209) Complex EM visit Add On G2211 Diagnoses Moderate persistent asthma with acute exacerbation J45.41 Asthma complication type: with acute exacerbation Asthma persistence: persistent Asthma severity: moderate Environmental allergies Z91.09 Witnessed episode of apnea R06.81 Daytime somnolence R40.0
--- OUTSIDE RECORDS SUMMARY | 2024-12-22 11:52 | XMS_ITS | Clinical Summary ---
Author Organization [facility] Address [address] [place] [address] Care Team Providers Care Plant Hr Manager Name Role Phone Harriet Elkins [facility] Primary Care Provider [phone] Source Comments PLEASE NOTE, if this patient [...] Reji Mother Health Care Agent Care Teams Plant Hr Manager Relationship Specialty Start Date End Date Harriet Elkins FNP [address] [place], [place] [phone] PCP - General 12/11/18
--- OUTSIDE RECORDS SUMMARY | 2024-12-22 11:52 | XMS_ITS | Clinical Summary ---
Author Organization [employer] Address [address] [place] [address] Care Team Providers Care Conference And Event Organiser Name Role Phone Ninfa Baez MD Primary Care Provide r Allergies Active Allergy Reactions Criticality Noted Date Comments Avocado 12/02/2023 Pistachio Nut (Diagnostic) 4 Medications cholecalciferol (Vitamin D-3) 50 MCG (1999 UT) capsule TAKE 1 CAPSULE BY MOUTH EVERY DAY 90 capsule 1 3 Active Mometasone Furoate (Asmanex HFA) 100 MCG/ACT [...] THE MORNING 90 tablet 1 4 Active Active Problems Problem [...] Description 11/09/2024 9:45 AM EDT Office Visit [facility] [address] [place] [phone] Ninfa Baez MD Mild intermittent asthma without complication (Primary Dx); Chronic gastritis, presence of bleeding unspecified, unspecified gastritis type; Class 1 obesity due to excess calories with serious comorbidity and body mass index (BMI) of 34.0 to 34.9 in adult; Moderate persistent asthma, unspecified whether complicated 11/09/2024 Travel 11/04/2024 Telephone [facility] [address] [place] [phone] Ninfa Baez MD Chart Prep 10/29/2024 Patient Outreach [address] [address] Ninfa Baez MD Pre-visit Planning (SDOH screening [...] housing situation today? I have adilson corona 10/29/[address] you [...] 3-dose series) 1994 COVID-19 Vaccine (3 - 2023- season) 2024 09/12/2020, 08/22/2020 Depression Screening 07/15/2024 [...] 2:08 PM EDT) Triglycerides 481(H) <150 mg/dL [facility] Comment:Desirable Triglyceri de: less than 150 mg/dLBorderline High Triglyceride 150-199 mg/dLHigh Triglyceride: 200-499 mg/dLVery High Triglyceride: greater than or equal to 5OO mg/dL Cholesterol 174 <200 mg/dL [facility] Comment:Desirable Cholestero l: less than 200 mg/dLBorderline High Cholesterol: 200-239 mg/dLHigh Cholesterol: greater than 239 mg/dL LDL Cholesterol Calculated TNP <100 mg/dL [facility] Comment:Unable to calculate the LDL. The formula of Friedwald,Brown, and Oni is only valid if the triglycerides areless than 400 mg/dl. HDL Cholesterol 32(L) >40 mg/dL [facility] Comment:Desirable HDL: great er than 40 mg/dL Note: This HDL assay may give artificially low results in patients with liver disease. Blood Venous blood specimen / Unknown 08/20/2023 2:08 PM EDT 08/20/2023 6:56 PM EDT us Ninfa Dwyer MD LAB BLOOD ORDERABLES Final Result [facility] [address] [place] [phone] * Hepatitis C Antibody with Reflex to HCV, RNA, Quantitative, Real-Time PCR (07/15/2023 11:47 AM EST) Hepatitis C Antibody Nonreactive Nonreactive [facility] Comment:Antibodies to HCV no t detected; does not exclude early acuteHCV infection. Blood Venous blood specimen / Unknown 07/15/2023 11:47 AM EST 07/15/2023 1:24 PM EST us Ninfa Dwyer MD LAB BLOOD ORDERABLES Final Result [facility] [address] [place] [phone] * HIV-1/2 Antigen and Antibodies, Fourth Generation, with Reflexes (07/15/2023 11:47 AM EST) HIV AB/AG Nonreactive Nonreactive [facility] Comment:HIV-1 p24 Ag and/or HIV-1/HIV-2 Ab not detected.A test result that is nonreactive does not exclude thepossibility of exposure to or infection with HIV-1 and/orHIV-2. Nonreactive results in this assay for individualswith prior exposure to HIV-1 and/or HIV-2 may be due toantigen and antibody levels that are below the limit ofdetection of this assay.The [employer] Rocket HIV Ag/Ab Combo assay result andsupplemental assay results should be interpreted inconjunction with the patient's clinical presentation,history and other laboratory results. If the results areinconsistent with clinical evidence, additional testing issuggested to confirm the result. Blood Venous blood specimen / Unknown 07/15/2023 11:47 AM EST 07/15/2023 1:24 PM EST us Ninfa Dwyer MD LAB BLOOD ORDERABLES Final Result [facility] [address] [place] [phone] from Last 3 Months or Most Recently Relevant to Health Maintenance Insurance [facility] Care Teams Conference And Event Organiser Relationship Specialty Start Date End Date Ninfa Baez MD [address] [place] [phone] PCP - General Family Medicine 08/30/21
--- OUTSIDE RECORDS SUMMARY | 2024-12-22 11:52 | XMS_ITS | Clinical Summary ---
Author Organization [facility] Address [address] [place] [address] Care Team Providers Care Private Equity Analyst Name Role Phone Unavailable Primary Care Provider [...]
== END 2024-12-22 11:41 | disposition home or self-care (01) ==
PROVIDERS: PCP Internal Medicine; Visit Provider Nurse Practitioner Family
DX: J45.41 Moderate persistent asthma with (acute) exacerbation (principal); Z91.09 Other allergy status, other than to drugs and biological substances; R06.81 Apnea, not elsewhere classified; R40.0 Somnolence
CPT/HCPCS: 99214

== ENCOUNTER → 2024-12-22 11:04 | Outpatient (BNVA) | payer MEDICAID, SELFPAY | PROVIDERS: PCP Internal Medicine; Visit Provider Nurse Practitioner Family | DX: J45.41 Moderate persistent asthma with (acute) exacerbation (principal); R06.81 Apnea, not elsewhere classified; Z91.09 Other allergy status, other than to drugs and biological substances; R40.0 Somnolence | CPT/HCPCS: 99212 ==

== ENCOUNTER 2025-02-23 12:53 | Outpatient (AMB) | payer MEDICAID, SELFPAY ==
--- NOTE | 2025-02-23 13:00 | A.OFFVIS_ITS ---
Vital Signs 02/23/25 13:03 Height 5 ft 11 in Weight 262 lb 4 oz BMI 36.6 BP 120/84 Blood Pressure Location Lt brachial Position Sitting Pulse 89 Pulse Source Pulse Oximeter Pulse Oximetry (%) 97 Oxygen Delivery Method Room Air Intake Visit Reasons: Asthma Allergies avocado Allergy (Severe, Verified 02/23/25 13:08) Shortness of Breath Seasonal Allergies Allergy (Intermediate, Verified 02/23/25 13:08) Shortness of Breath kiwi Allergy (Unknown, Verified 02/23/25 13:08) Unknown peach Allergy (Unknown, Verified 02/23/25 13:08) Unknown HPI HPI Asthma: Details: Len is a pleasant 45 year old male, current minimal marijuana smoker, with underlying asthma since childhood and allergic rhinitis. 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 At the last visit, he reported suboptimal control on Breo 200 mcg and Singulair, switched to Trelegy with minimal improvement and order placed to start Xolair 225 mg q 2 week. Since the last visit he has received three injections. 3-4 days after first injection patient reported BLE edema, unclear if this was related to Xolair and discussed proceeding with injection. He denies any return of edema with subsequent injections. He reports rarely using albuterol MDI over the last few weeks and feels respiratory symptoms are well controlled. Prior home sleep study revealed moderate CORNEL with AHI 27.3, minimal nocturnal hypoxemia <5.1 minutes, lowest 78%, average oxygen saturation 94%. He was started on CPAP therapy in APAP mode with pressure settings of 6-20 cm H2O, DME is [employer]. Today he presents to review compliance report. Of note, had long discussion with patient regarding continued weight gain over the last 6 months, gaining 30lbs likely related to eating habits and decreased activity, [facility], [facility] Medical History (Updated 02/23/25 @ 13:03 by Anna Mitchell NP) Diverticulosis Normal esophagogastroduodenoscopy (EGD) Chronic back pain Asthma Surgical History Hx of colonoscopy No pertinent past surgical history Family History Father Kidney disease, chronic, end stage on dialysis Kidney transplant status Social History Are you a primary coronary care unit nurse to a significant other at home: No Do you presently have visiting nurse or other home services: No Alcohol intake: never Patient Tobacco Use Status: Never used Tobacco Substance Use Type: Marijuana Review of Systems Const Denies chills, Denies excessive sweating, Denies fever(s), Denies headache(s) and Denies night sweats Eyes Denies dry eyes, Denies irritation and Denies itchy eyes ENT Reports Normal hearing present, Denies headache(s), Denies nasal congestion, Denies nasal discharge, Denies post nasal drip and Denies sore throat Card Denies chest pain, Denies chest pain at rest, Denies chest pain with activity, Denies claudication, Denies leg edema, Denies dyspnea, Denies dyspnea on exertion, Denies orthopnea and Denies paroxysmal nocturnal dyspnea Resp Denies chest congestion, Denies cough, Denies excessive phlegm production, Denies pain on inspiration, Denies pain with cough, Denies dyspnea, Denies dyspnea on exertion, Denies stridor and Denies wheezing Musc Denies myalgias Neuro Reports Normal hearing present and Denies headache(s) Endo Denies excessive sweating Margarito/Lymph Denies lymphadenopathy Aller/Immun Denies itchy eyes, Denies seasonal rhinorrhea and Denies wheezing Physical Exam Vital Signs: Last Vital Signs Pulse 89 02/23/25 13:03 BP 120/84 02/23/25 13:03 Pulse Ox 97 02/23/25 13:03 Oxygen Delivery Method Room Air 02/23/25 13:03 BMI result Body Mass Index 36.6 Const General: cooperative, healthy appearing, comfortable, no acute distress, well developed and alert Nutritional Appearance: obese Orientation/consciousness: patient oriented x3 Limitations: no limitations HEENT Head: Yes normal to inspection, Yes normocephalic and Yes atraumatic Ears: hearing grossly normal bilaterally and external ears normal Eyes General: appearance normal, both eyes and all related structures Eyelids: Yes eyelids normal Sclerae: sclerae normal EOM: EOMs intact bilaterally Neck Neck: Yes normal visual inspection and Yes no lymphadenopathy Lymphatic: no lymphadenopathy noted Chest Chest palpation & inspection: normal inspection of the chest Resp Effort & Inspection: normal respiratory effort, able to speak in complete sentences, no audible wheezes, no cough, no stridor, not tachypneic, no tripod positioning and no use of accessory muscles Auscultation: clear to auscultation bilaterally Cardio Jugular venous distension: no JVD Rate: regular rate Rhythm: regular rhythm Skin Other: warm, dry General skin exam: no rashes or lesions noted Neuro General: patient oriented x3 Cranial nerves: Yes Normal hearing present Cognition (Neuro): normal cognition Gait exam (Neuro): Normal gait present Extrem General: Yes normal to inspection, Yes capillary refill normal, Yes no clubbing, cyanosis or edema and Yes no pedal edema Psych Appearance: grossly normal and well kempt Speech and movement: Normal speech and movement present and Clear speech present Affect: normal affect Attitude: cooperative Thought process: Normal thought process present Thought content: Normal thought content present Insight: Good insight present (Psych) Judgement: Good judgement present (Psych) Assessment & Plan Assessment & Plan (1) Asthma: Code(s): J45.909 - Unspecified asthma, uncomplicated Category: Medical Qualifiers: Asthma complication type: with acute exacerbation Asthma persistence: persistent Asthma severity: moderate Qualified Code(s): J45.41 - Moderate persistent asthma with (acute) exacerbation (2) Environmental allergies: Code(s): Z91.09 - Other allergy status, other than to drugs and biological substances Category: Medical (3) Moderate obstructive sleep apnea: Code(s): G47.33 - Obstructive sleep apnea (adult) (pediatric) Category: Medical Plan Patient reports improved control of respiratory symptoms since initiating Xolair in addition to Trelegy and albuterol MDI PRN, advised to continue. He was started on Xolair 225mg q 2 weeks which he has received three injections, tolerated the last injections with no issues, advised to continue and monitor for any adverse effects. Reviewed compliance report for the last 30 days which reveals 90% >4 hours of use, AHI 1.1 however leaking noted. Patient does note leaking due to mask, advised ro reach out to [employer] to obtain a different mask to trial. All questions were answered and patient is in agreement of plan. Will follow up in 3 months or sooner if needed. Coding Level of Care Code Est Pt Level 4 (71315) Diagnoses Moderate persistent asthma with acute exacerbation J45.41 Asthma complication type: with acute exacerbation Asthma persistence: persistent Asthma severity: moderate Environmental allergies Z91.09 Moderate obstructive sleep apnea G47.33
[2025-02-23 13:03] VITALS: BP 120/84; PULSE 89; O2SAT 97; BMI 36.6
--- OUTSIDE RECORDS SUMMARY | 2025-02-23 15:48 | XMS_ITS | Clinical Summary ---
Author Organization [employer] Address [address] [place] [address] Care Team Providers Care Die Maker Trim Name Role Phone Ninfa Baez MD Primary [...] EST): Patient educated to avoid asthma triggers Immunizations Immunization Administration Dates Next Due Hep [...] 1979 Sigmoidoscopy 1979 Family Planning (PISQ) 1994 Depression Screening 07/15/2024 07/15/2023, 07/15/19 24 Hepatitis B Vaccines (2 of 3 - 19+ 3-dose series) 12/07/2024 11/09/2024 COVID-19 Vaccine (3 - 2024- season) 2025 09/12/2020, 08/22/2020 Influenza Vaccine (#1) 2025 03/01/2016 SDOH Screening [...] 2:08 PM EDT) Triglycerides 481(H) <150 mg/dL [facility] Comment:Desirable Triglyceri de: less than 150 mg/dLBorderline High Triglyceride 150-199 mg/dLHigh Triglyceride: 200-499 mg/dLVery High Triglyceride: greater than or equal to 5OO mg/dL Cholesterol 174 <200 mg/dL [facility] Comment:Desirable Cholestero l: less than 200 mg/dLBorderline High Cholesterol: 200-239 mg/dLHigh Cholesterol: greater than 239 mg/dL LDL Cholesterol Calculated TNP <100 mg/dL [facility] Comment:Unable to calculate the LDL. The formula of Friedwald,Brown, and Oni is only valid if the triglycerides areless than 400 mg/dl. HDL Cholesterol 32(L) >40 mg/dL [facility] Comment:Desirable HDL: great er than 40 mg/dL Note: This HDL assay may give artificially low results in patients with liver disease. Blood Venous blood specimen / Unknown 08/20/2023 2:08 PM EDT 08/20/2023 6:56 PM EDT us Ninfa Dwyer MD LAB BLOOD ORDERABLES Final Result Performing Organization Address [facility] Co de Phone Number [facility] [address] [place] [phone] * Hepatitis C Antibody with Reflex to HCV, RNA, Quantitative, Real-Time PCR (07/15/2023 11:47 AM EST) Hepatitis C Antibody Nonreactive Nonreactive [facility] Comment:Antibodies to HCV no t detected; does not exclude early acuteHCV infection. Blood Venous blood specimen / Unknown 07/15/2023 11:47 AM EST 07/15/2023 1:24 PM EST us Ninfa Dwyer MD LAB BLOOD ORDERABLES Final Result Performing Organization Address [facility] Co de Phone Number [facility] [address] [place] [phone] * HIV-1/2 Antigen and Antibodies, Fourth Generation, with Reflexes (07/15/2023 11:47 AM EST) HIV AB/AG Nonreactive Nonreactive [facility] Comment:HIV-1 p24 Ag and/or HIV-1/HIV-2 Ab not detected.A test result that is nonreactive does not exclude thepossibility of exposure to or infection with HIV-1 and/orHIV-2. Nonreactive results in this assay for individualswith prior exposure to HIV-1 and/or HIV-2 may be due toantigen and antibody levels that are below the limit ofdetection of this assay.The BookMy[employer] HIV Ag/Ab Combo assay result andsupplemental assay results should be interpreted inconjunction with the patient's clinical presentation,history and other laboratory results. If the results areinconsistent with clinical evidence, additional testing issuggested to confirm the result. Blood Venous blood specimen / Unknown 07/15/2023 11:47 AM EST 07/15/2023 1:24 PM EST Ninfa Dwyer MD LAB BLOOD ORDERABLES Final Result [facility] [address] [place] [phone] from Last 3 Months or Most Recently Relevant to Health Maintenance Insurance [facility] C3 HSN PARTIAL Care Teams Die Maker Trim Relationship Specialty Start Date End Date Ninfa Baez MD [address] [place] [phone] PCP - General Family Medicine 08/30/21
--- OUTSIDE RECORDS SUMMARY | 2025-02-23 15:48 | XMS_ITS | Clinical Summary ---
Author Organization [facility] Address [address] [place] [address] Care Team Providers Care Manager Payment Name Role Phone Unavailable Primary Care Provider [...] of 3 - 19+ 3-dose series) 1998 Depression Screening 05/20/2024 COVID-19 Vaccine (1 - 2023-2 5 season) 2025 Influenza Vaccine (#1) 2025 RSV Immunization Adult Patie nts (1 - 1-dose 75+ series) 2054 HIB Vaccines Aged Out No longer eligi [...]
--- OUTSIDE RECORDS SUMMARY | 2025-02-23 15:48 | XMS_ITS | Encounter Summary ---
Author Organization [employer] Address [address] [place] [address] Care Team Providers Care Tanning Drum Operator Name Role Phone Ninfa Baez MD Primary Care Provide r Encounter Details Date Type Department Care Team ([facility] st Contact Info) Description 08/22/2023 Orders Only [facility] [address] [place], [place] [phone] Ninfa Baez MD [address] [place], [place] [phone] Social History Tobacco Use Types Packs/Day Years [...] documented as of this encounter Care Teams Tanning Drum Operator Relationship Specialty Start Date End Date Ninfa Baez MD [address] [place] [phone] PCP - General Family Medicine 08/30/21 documented as of this encounter
--- OUTSIDE RECORDS SUMMARY | 2025-02-23 15:48 | XMS_ITS | Clinical Summary ---
Author Organization [facility] Address [address] [place] [address] Care Team Providers Care Cushion Spring Assembler Name Role Phone Harriet Elkins [facility] Primary Care Provider [phone] Source Comments PLEASE NOTE, if this patient [...] Reji Mother Health Care Agent Care Teams Cushion Spring Assembler Relationship Specialty Start Date End Date Harriet Elkins FNP [address] [place], [place] [phone] PCP - General 12/11/18
== END 2025-02-23 13:37 | disposition home or self-care (01) ==
LOC: HO.HPSW 12:55
PROVIDERS: PCP Internal Medicine; Visit Provider Nurse Practitioner Family
DX: J45.41 Moderate persistent asthma with (acute) exacerbation (principal); Z91.09 Other allergy status, other than to drugs and biological substances; G47.33 Obstructive sleep apnea (adult) (pediatric)
CPT/HCPCS: 99214

== ENCOUNTER → 2025-02-23 12:53 | Outpatient (BNVA) | payer MEDICAID, SELFPAY | PROVIDERS: PCP Internal Medicine; Visit Provider Nurse Practitioner Family | DX: J45.41 Moderate persistent asthma with (acute) exacerbation (principal); Z91.09 Other allergy status, other than to drugs and biological substances; G47.33 Obstructive sleep apnea (adult) (pediatric) | CPT/HCPCS: 99212 ==

== ENCOUNTER 2025-03-04 10:25 | Outpatient (AMB) | payer MEDICAID, SELFPAY ==
--- NOTE | 2025-03-04 10:28 | A.OFFVIS_ITS ---
Vital Signs 03/04/25 10:29 Height 5 ft 11 in Weight 262 lb BMI 36.5 BP 142/74 H Blood Pressure Location Lt brachial Position Sitting Pulse 80 Pulse Source Pulse Oximeter Pulse Oximetry (%) 98 Oxygen Delivery Method Room Air Intake Visit Reasons: GERD, LUQ pain f/u r/s 01/25/25 Intake Note: ESTABLISHED PATIENT for chronic GERD + abd pain. Labs done. Chief Complaint; C.O. LUQ pain intermittently. Pt states he had taken the fiber and senna for a short period of time but stopped taking them because he did not notice a difference w/ or w/o them. Pt states that his pain seems to be worse when he has not eaten, and better once he has eaten. Seamless Tube Mill Operator Required: Yes Seamless Tube Mill Operator Services: Seamless Tube Mill Operator Offered & Declined Accompanied by: Self / Same As Patient Allergies avocado Allergy (Severe, Verified 03/04/25 10:29) Shortness of Breath Seasonal Allergies Allergy (Intermediate, Verified 03/04/25 10:29) Shortness of Breath kiwi Allergy (Unknown, Verified 03/04/25 10:29) Unknown peach Allergy (Unknown, Verified 03/04/25 10:29) Unknown HPI HPI GERD, LUQ pain f/u r/s 01/25/25: Details: LAST VISIT: Diverticulosis Postprandial abdominal pain in left upper quadrant Postprandial epigastric pain GERD (gastroesophageal reflux disease) Postprandial abdominal bloating Status post colonoscopy Hemorrhoids without complication Plan Gastritis inactive and chronic seen on upper endoscopy. Patient continues to have epigastric pain postprandially depending on what he eats. Will send to check transglutaminase, lipase, liver profile. Patient will continue taking Nexium daily. Avoid dietary triggers and late night snacking. Staying upright for minimum 3 hours after meals discussed with patient. Patient reports that occasionally he will have postprandial loose stools. Will order B12, folate and vitamin-D levels. Patient will start taking Citrucel daily and Senokot in the evening to help her eliminate his bowels better. Patient will be seen in the office in 3-4 months, sooner on as needed basis. He is agreeable to this plan and verbalizes understanding of instructions. He was given the opportunity to ask questions and all questions answered. ? Thank you for allowing me to participate in his care Orders Vitamin D 25-OH (D2 and D3) 08/10/24 E55.9 Vitamin B12 and Folate 08/10/24 R19.7 Transglutaminase IgA 08/10/24 R10.9 Lipase 08/10/24 R10.9 Liver Panel 08/10/24 R74.01 TSH reflex Free T4 08/10/24 K59.00 New methylcellulose (laxative) (Citrucel) take it with full glass of water 500 mg PO DAILY 90 tabs 2RF K59.00 sennosides (Natural Senna Laxative) 17.2 mg (2 x 8.6 mg) PO BEDTIME 60 tabs 3RF constipation K59.00 TODAY'S VISIT: Patient is here today for follow-up. Patient is accompanied by his . Patient reports increased stress. 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 Feeling pretty stressful about it. Patient reports epigastric pain and left upper quadrant pain in the past few days. Patient denies acid reflux. States [employer] is working for him. Reports occasional dyspepsia without dysphagia or odynophagia. Patient reports left upper quadrant and epigastric pain, pain relieved after eating. 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 Patient frequently eats 1-2 meals a day. Patient denies eating late at night. His last meal is at 19:00 and goes to bed between 9 and 10 pm. Patient reports that he is moving his bowels well. Denies melena, hematochezia. Reports frequent postprandial abdominal bloating. Admits to stress eating at times. Diagnosed with sleep apnea, using CPAP at night time. [facility] Medical History Diverticulosis Normal esophagogastroduodenoscopy (EGD) Chronic back pain Asthma Surgical History Hx of colonoscopy No pertinent past surgical history Family History Father Kidney disease, chronic, end stage on dialysis Kidney transplant status Social History Are you a primary overnight caregiver to a significant other at home: No Do you presently have visiting nurse or other home services: No Alcohol intake: never Patient Tobacco Use Status: Never used Tobacco Substance Use Type: Marijuana Review of Systems Const Denies weight gain and Denies weight loss ENT Reports no additional complaints, Denies dysphagia and Denies odynophagia Card Reports no additional complaints Resp Reports no additional complaints GI Reports abdominal pain (LUQ), Denies belching, Denies melena, Reports bloating, Denies change in bowel habits, Denies dysphagia, Denies excessive flatus, Reports dyspepsia, Reports heartburn, Denies diarrhea, Denies loose stools, Denies nausea, Denies odynophagia and Denies vomiting Reports no additional complaints Musc Reports no additional complaints Neuro Reports no additional complaints Psych Reports no additional complaints Endo Reports no additional complaints Physical Exam Vital Signs: Last Vital Signs Pulse 80 03/04/25 10:29 BP 142/74 H 03/04/25 10:29 Pulse Ox 98 03/04/25 10:29 Oxygen Delivery Method Room Air 03/04/25 10:29 BMI result Body Mass Index 36.5 Const General: healthy appearing, no acute distress and well developed Nutritional Appearance: obese Orientation/consciousness: patient oriented x3 Resp Effort & Inspection: normal respiratory effort, able to speak in complete sentences, no tracheal deviation and symmetric chest movement Auscultation: wheezes expiratory wheezes and throughout Cardio Rate: regular rate GI Inspection: Yes normal to inspection, No distended and Yes obesity Palpation (GI): Soft to palpation, not firm, nontender and No hepatosplenomegaly present Auscultation: normal bowel sounds General: Yes no CVA tenderness Back/Spine/Pelvis Back: no CVA tenderness Skin General skin exam: elasticity normal, turgor normal and dry skin Neuro General: patient oriented x3 Psych Appearance: grossly normal Mental Status: mental status grossly normal Assessment & Plan Assessment & Plan (1) Diverticulosis: Code(s): K57.90 - Diverticulosis of intestine, part unspecified, without perforation or abscess without bleeding Category: Medical (2) Postprandial abdominal pain in left upper quadrant: Code(s): R10.12 - Left upper quadrant pain (3) Postprandial epigastric pain: Code(s): R10.13 - Epigastric pain (4) Gastroesophageal reflux disease: Code(s): K21.9 - Gastro-esophageal reflux disease without esophagitis Qualifiers: Esophagitis presence: esophagitis presence not specified Qualified Code(s): K21.9 - Gastro-esophageal reflux disease without esophagitis (5) Postprandial abdominal bloating: Code(s): R14.0 - Abdominal distension (gaseous) (6) Hemorrhoids without complication: Code(s): K64.9 - Unspecified hemorrhoids Plan Patient reports left upper quadrant pain. Will send him for CT scan. Patient will be sent also for upper GI with barium swallow. Patient reports epigastric pain and acid reflux. Reports epigastric pain worse when he is not eating. Will check vitamin-D, B12, folate. Discussed with patient avoiding dietary triggers and late night snacking. Staying upright for minimum 3 hours after meals discussed with patient. Discussed with him eating smaller meals and more often. Not to wait all day before eating. Try to take snacks to work so he can snack on. We did talk about low FODMAP diet as well. List of food recommended as well as list of food to avoid given to patient. He will return in 3 months, sooner on as needed basis. Both patient and his are agreeable to plan of care and verbalizes understanding of instructions. They were given the opportunity to ask questions and all questions answered. Thank you for allowing me to participate in his care Orders: Orders Vitamin D 25-OH (D2 and D3) 03/04/25 E55.9 - Vitamin D deficiency, unspecified Creatinine 03/04/25 R10.11 - Right upper quadrant pain Vitamin B12 and Folate 03/04/25 R19.7 - Diarrhea, unspecified Blood Urea Nitrogen 03/04/25 R10.11 - Right upper quadrant pain FL upper GI w air w Ba Swallow 03/04/25 K21.9 - Gastro-esophageal reflux disease without esophagitis CT abdomen pelvis w IV con 03/04/25 R10.12 - Left upper quadrant pain, R10.9 - Unspecified abdominal pain Coding Level of Care Code Est Pt Level 4 (36283) Complex EM visit Add On G2211 Diagnoses Diverticulosis K57.90 Postprandial abdominal pain in left upper quadrant R10.12 Postprandial epigastric pain R10.13 Gastroesophageal reflux disease, unspecified whether esophagitis present K21.9 Esophagitis presence: esophagitis presence not specified Postprandial abdominal bloating R14.0 Hemorrhoids without complication K64.9 Time Spent (min) 40 Comment 25 minutes spent with patient and additional 15 minutes spent reviewing his records
[2025-03-04 10:29] VITALS: BP 142/74; PULSE 80; O2SAT 98; BMI 36.5
--- OUTSIDE RECORDS SUMMARY | 2025-03-04 12:53 | XMS_ITS | Clinical Summary ---
Author Organization [facility] ity Address [address] [place] [address] Care Team Providers Care Appellate Conferee Name Role Phone Unavailable Primary Care Provider [...]
--- OUTSIDE RECORDS SUMMARY | 2025-03-04 12:54 | XMS_ITS | Clinical Summary ---
Author Organization [facility] Address [address] [place] [address] Care Team Providers Care Cyber Defense Analyst Name Role Phone Harriet Elkins [facility] Primary Care Provider [phone]- [phone] Source Comments PLEASE NOTE, if this patient [...] Reji Mother Health Care Agent Care Teams Cyber Defense Analyst Relationship Specialty Start Date End Date Harriet Elkins FNP [address] [place], [place] [phone] PCP - General 12/11/18
--- OUTSIDE RECORDS SUMMARY | 2025-03-04 12:54 | XMS_ITS | Encounter Summary ---
Author Organization [employer] Address [address] [place] [address] Care Team Providers Care Network Architect Manager Name Role Phone Ninfa Baez MD Primary Care Provide r Encounter Details Date Type Department Care Team ([facility] st Contact Info) Description 08/22/2023 Orders Only [facility] [address] [place], [place] [phone] Ninfa Baez MD [address] [place], [place] [phone] Social History Tobacco Use Types Packs/Day Years [...] Care Team (Late st Contact Info) Description 05/04/2025 10:00 AM EST Office Visit [facility] [address] [place] [phone] Ninfa Baez MD [address] [place] [phone] documented as of this encounter Visit Diagnoses Not on filedocumented in this encounter Additional Health Concerns Assessment Noted Time PHQ-9 Depression Total Score: 0 07/15/19 24 10:46 AM EST documented as of this encounter Care Teams Network Architect Manager Relationship Specialty Start Date End Date Ninfa Baez MD [address] [place] [phone] PCP - General Family Medicine 08/30/21 documented as of this encounter
--- OUTSIDE RECORDS SUMMARY | 2025-03-04 12:54 | XMS_ITS | Clinical Summary ---
Author Organization [employer] Address [address] [place] [address] Care Team Providers Care Voting Machine Repairer Name Role Phone Ninfa Baez MD Primary [...] Encounters Date Type Department Care Team Description 02/25/2025 Telephone [facility] [address] [place] [phone] Ninfa Baez MD dec recall from Last 3 Months Immunizations Immunization Administration [...] Description 05/04/2025 10:00 AM EST Office Visit [facility] [address] [place] [address] Ninfa Baez MD [address] [place] [address] Health Maintenance Due Date Last Done Comments CT Colonography 1979 Colonoscopy 1979 Colorectal Cancer Screening 1979 FIT DNA/Cologuard 1979 FIT 1979 FOBT 1979 Sigmoidoscopy 1979 Family Planning (PISQ) 1994 Depression Screening 07/15/2024 07/15/2023, 07/15/19 24 Hepatitis B Vaccines (2 of 3 - 19+ 3-dose series) 12/07/2024 11/09/2024 COVID-19 Vaccine (3 - season) 2025 09/12/2020, 08/22/2020 Influenza Vaccine (#1) [...] 2:08 PM EDT) Triglycerides 481(H) <150 mg/dL [facility] Comment:Desirable Triglyceri de: less than 150 mg/dLBorderline High Triglyceride 150-199 mg/dLHigh Triglyceride: 200-499 mg/dLVery High Triglyceride: greater than or equal to 5OO mg/dL Cholesterol 174 <200 mg/dL [facility] Comment:Desirable Cholestero l: less than 200 mg/dLBorderline High Cholesterol: 200-239 mg/dLHigh Cholesterol: greater than 239 mg/dL LDL Cholesterol Calculated TNP <100 mg/dL [facility] Comment:Unable to calculate the LDL. The formula of Friedwald,Brown, and Oni is only valid if the triglycerides areless than 400 mg/dl. HDL Cholesterol 32(L) >40 mg/dL [facility] Comment:Desirable HDL: great er than 40 mg/dL Note: This HDL assay may give artificially low results in patients with liver disease. Blood Venous blood specimen / Unknown 08/20/2023 2:08 PM EDT 08/20/2023 6:56 PM EDT us Ninfa Dwyer MD LAB BLOOD ORDERABLES Final Result [facility] [address] [place] [address] [phone] * Hepatitis C Antibody with Reflex to HCV, RNA, Quantitative, Real-Time PCR (07/15/2023 11:47 AM EST) Hepatitis C Antibody Nonreactive Nonreactive [facility] Comment:Antibodies to HCV no t detected; does not exclude early acuteHCV infection. Blood Venous blood specimen / Unknown 07/15/2023 11:47 AM EST 07/15/2023 1:24 PM EST Ninfa Dwyer MD LAB BLOOD ORDERABLES Final Result Performing Organization Address [facility] Co de Phone Number [facility] [address] [place] [address] [phone] * HIV-1/2 Antigen and Antibodies, Fourth Generation, with Reflexes (07/15/2023 11:47 AM EST) [facility] HIV AB/AG Nonreactive Nonreactive [facility] Comment:HIV-1 p24 Ag and/or HIV-1/HIV-2 Ab not detected.A test result that is nonreactive does not exclude thepossibility of exposure to or infection with HIV-1 and/orHIV-2. Nonreactive results in this assay for individualswith prior exposure to HIV-1 and/or HIV-2 may be due toantigen and antibody levels that are below the limit ofdetection of this assay.The [employer] HIV Ag/Ab Combo assay result andsupplemental assay results should be interpreted inconjunction with the patient's clinical presentation,history and other laboratory results. If the results areinconsistent with clinical evidence, additional testing issuggested to confirm the result. Blood Venous blood specimen / Unknown 07/15/2023 11:47 AM EST 07/15/2023 1:24 PM EST us Ninfa Dwyer MD LAB BLOOD ORDERABLES Final Result Performing Organization Address City/[facility]/ZIP Co de Phone Number [facility] [address] [place] [phone] from Last 3 Months or Most Recently Relevant to Health Maintenance Insurance [facility] C3 HSN PARTIAL Care Teams Voting Machine Repairer Relationship Specialty Start Date End Date Ninfa Baez MD [address] [place] [phone] PCP - General Family Medicine 08/30/21
== END 2025-03-04 11:14 | disposition home or self-care (01) ==
LOC: HO.HGI 10:25
PROVIDERS: PCP Internal Medicine; Visit Provider Nurse Practitioner Family
DX: K57.90 Diverticulosis of intestine, part unspecified, without perforation or abscess without bleeding (principal); R10.12 Left upper quadrant pain; R10.13 Epigastric pain; K21.9 Gastro-esophageal reflux disease without esophagitis; R14.0 Abdominal distension (gaseous); K64.9 Unspecified hemorrhoids
CPT/HCPCS: 99214

== ENCOUNTER → 2025-03-04 10:25 | Outpatient (BNVA) | payer MEDICAID, SELFPAY | PROVIDERS: PCP Internal Medicine; Visit Provider Nurse Practitioner Family | DX: R10.12 Left upper quadrant pain (principal); K21.9 Gastro-esophageal reflux disease without esophagitis; R10.11 Right upper quadrant pain; R10.13 Epigastric pain; R19.7 Diarrhea, unspecified; K57.90 Diverticulosis of intestine, part unspecified, without perforation or abscess without bleeding; R14.0 Abdominal distension (gaseous); K64.9 Unspecified hemorrhoids | CPT/HCPCS: 99212 ==

== ENCOUNTER 2025-03-08 09:22 | Outpatient (REF) | payer MEDICAID, SELFPAY ==
--- NOTE | ~2025-03-08 | FL_ITS ---
EXAMINATION: XR UPPER GI SERIES WITH BARIUM SWALLOW. CLINICAL INFORMATION: Left lower chest pain. History of esophagitis and reflux disease. COMPARISON: None available. TECHNIQUE: Routine upper GI air contrast study in upright and lying position was performed. Thin barium was administered in right lateral decubitus view FINDINGS: Following oral administration of thick barium and effervescent granules there is normal propagation of bolus from the oral cavity through the pharynx, esophagus into stomach obstruction, narrowing or intraluminal filling defect. No extrinsic compression seen. On placing patient supine and prone lying there is mild increased gastric sleeve patient's without gastric erosions or ulcerations. On oral administration of thin barium in the right lateral decubitus view there is good distention of the entire esophagus without any intraluminal defect or obstruction. The gastroesophageal junction is widely patent. No reflux could be demonstrated. There is no hiatal hernia. FLUOROSCOPY TIME: 1 minute 53 seconds DOSE AREA PRODUCT: 2920 uGy-m2 (microgray-meter squared) FL/FL upper GI w air w Ba Swallow IMPRESSION: Unremarkable upper GI air contrast study with esophagram. Electronically signed by: Otis Velasquez MD 03/08/2025 11:03 AM EDT
[2025-03-08 11:51] LABS: Blood Urea Nitrogen 11 mg/dL (9-16); Estimated Glomerular Filt Rate > 60
[2025-03-08 12:27] LABS: Folate 11.4 ng/mL (> or = 4.0); Vitamin B12 290 pg/mL (200-900)
[2025-03-12 16:13] LABS: Vitamin D 25-OH, D2 <4 ng/mL; Vitamin D 25-OH, D3 21 ng/mL; Vitamin D 25-OH, Total 21 ng/mL (30-100)
== END 2025-03-08 09:23 | disposition home or self-care (01) ==
LOC: HO.XRAY 09:22
PROVIDERS: PCP Internal Medicine; Visit Provider Nurse Practitioner Family
DX: K21.9 Gastro-esophageal reflux disease without esophagitis (principal); R10.11 Right upper quadrant pain; E55.9 Vitamin D deficiency, unspecified; R19.7 Diarrhea, unspecified
CPT/HCPCS: 36415; 74246; 82306; 82565; 82607; 82746; 84520

== ENCOUNTER → 2025-03-08 09:29 | Outpatient (BNV) | payer MEDICAID, SELFPAY | PROVIDERS: PCP Internal Medicine; Visit Provider Radiology Diagnostic Radiology | DX: K21.9 Gastro-esophageal reflux disease without esophagitis (principal) | CPT/HCPCS: 74246 ==

== ENCOUNTER 2025-03-22 11:18 | Outpatient (REF) | payer MEDICAID, SELFPAY ==
--- NOTE | ~2025-03-22 | CT_ITS ---
EXAMINATION: CT ABDOMEN AND PELVIS WITH CONTRAST CLINICAL INFORMATION: R10.9 - Unspecified abdominal pain COMPARISON: None available. TECHNIQUE: Multidetector volumetric images were obtained from the superior aspect of the liver through the pubic symphysis following administration 85 mL of Omnipaque 350 intravenous contrast. Sagittal and coronal reformatted images were obtained on the technologist's workstation. Oral contrast: No This CT examination was performed using dose optimization techniques as appropriate, variously including the following: *Automated exposure control *Adjustment of mA and/or kV according to patient size (this includes techniques or standardized protocols for targeted exams where dose is matched to indication/reason for exam; i.e. extremities or head) *Use of iterative reconstruction technique FINDINGS: LUNG BASES: Clear LIVER, GALLBLADDER, AND BILIARY TREE: Mild diffuse fatty changes are present throughout the liver. The gallbladder is unremarkable with no evidence of radiopaque gallstones, gallbladder wall thickening, or obvious pericholecystic inflammatory changes. PANCREAS: Unremarkable. SPLEEN: Unremarkable. ADRENAL GLANDS: Unremarkable. KIDNEYS AND URETERS: 1 cm simple renal cyst is noted in the medial mid left kidney. BLADDER: Unremarkable. GASTROINTESTINAL TRACT: There are a few pseudodiverticula in the sigmoid colon. The appendix is mostly gas-filled and thin-walled. ABDOMINAL WALL: Small umbilical hernia contains adipose tissue. LYMPH NODES: Normal. VASCULAR: Unremarkable. PELVIC VISCERA: Unremarkable. OSSEOUS STRUCTURES: Unremarkable. CT/CT abdomen pelvis w IV con IMPRESSION: No acute findings to suggest a cause of the patient's abdominal pain. Hepatic steatosis. Fleischner guidelines were followed. Electronically signed by: Brayden Henderson MD 03/22/2025 12:00 PM [facility]
[2025-03-22] MEDS: iohexoL 350 MG/ML 100 ML INFUS..BTL IV (11:46)
--- OUTSIDE RECORDS SUMMARY | 2025-03-22 14:20 | XMS_ITS | Encounter Summary ---
Author Organization [employer] Address [address] [place] [address] Care Team Providers Care Concert Promoter Name Role Phone iNnfa Baez MD Primary Care Provide r Encounter Details Date Type Department Care Team ([facility] st Contact Info) Description 08/22/2023 Orders Only [facility] [address] [place], [place] [phone] Ninfa Baez MD [address] [place], [place] [phone] Social History Tobacco Use Types Packs/Day Years [...] Description 05/04/2025 10:00 AM EST Office Visit [facility] [address] [place] [phone] Ninfa Baez MD [address] [place] [phone] documented as of this encounter Visit Diagnoses Not on filedocumented in this encounter Additional Health Concerns Assessment Noted Time PHQ-9 Depression Total Score: 0 07/15/19 24 10:46 AM EST documented as of this encounter Care Teams Concert Promoter Relationship Specialty Start Date End Date Ninfa Baez MD [address] [place] [phone] PCP - General Family Medicine 08/30/21 documented as of this encounter
--- OUTSIDE RECORDS SUMMARY | 2025-03-22 14:20 | XMS_ITS | Clinical Summary ---
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 Name Role Phone Ninfa Baez MD Primary [...] Encounters Date Type Department Care Team Description 03/08/2025 Orders Only [facility] External Provider, [facility] 02/25/2025 Telephone [facility] [address], [place] [phone] Ninfa Baez MD dec recall from Last [...] Description 05/04/2025 10:00 AM EST Office Visit [facility] [address] [place] [address] Ninfa Baez MD [address] [place] [address] Health Maintenance Due Date Last Done Comments CT Colonography 1979 Colonoscopy 1979 Colorectal Cancer Screening 1979 FIT DNA/Cologuard 1979 FIT 1979 FOBT 1979 Sigmoidoscopy 1979 Family Planning (PISQ) 1994 Depression Screening 07/15/2024 07/15/2023, 02/26/20 24 Hepatitis B Vaccines (2 of 3 [...] Procedure Name Priority Date/Time Associated Diagnosis Comments CT ABDOMEN PELVIS W CONTRAST Routine 03/22/2025 11:34 AM EST VITAMIN D 25-OH (D2 AND D3) Routine 03/08/2025 10:38 AM EDT VITAMIN B12/FOLATE, SERUM PANEL Routine 03/08/2025 10:38 AM EDT CREATININE, SERUM Routine 03/08/2025 10: 38 AM EDT UREA NITROGEN (BUN) Routine 03/08/2025 1 0:38 AM EDT FL UPPER GI W AIR W BARIUM SWALLOW Routine 03/08/2025 9:50 AM EDT LIPID PANEL, STANDARD Routine 08/20/2023 2:08 PM EDT Encounter for preventive health examination HEPATITIS C AB W/REFL TO HCV RNA, QN, PCR Routine 07/15/2023 11:47 AM EST Encounter for preventive health examination HIV 1/2 ANTIGEN/ANTIBODY, FOURTH GENERATION W/RFL Routine 07/15/2023 11:47 AM EST Encounter for preventive health examination from Last 3 Months or Most Recently Relevant to Health Maintenance Results * CT Abdomen Pelvis w/ Contrast (03/22/2025 11:34 AM EST) Anatomical Region Laterality Modality Body, Pelvis, Abdomen Computed T omography 03/22/2025 11:3 4 AM EST Narrative 03/22/2025 12:03 PM EST [place] [address] CT Scan Report Signed Patient: Len Gaspar MR#: [id number] : 1980 Acct:[id number] Age/Sex: 45 / M ADM Date: 03/22/25 Loc: HO.CT Attending Dr: Park JOE-PAULA Ordering Physician: Park Jolley-PAULA Date of Service: 03/22/25 Procedure(s): CT abdomen pelvis w IV con Accession Number(s): [id number] cc: Ninfa Baez MD; Park Jolley [facility] Report Number: [id number]: Total DLP = 674.00 mGy-cm Reason for Exam: R10.9 - Unspecified abdominal pain EXAMINATION: CT ABDOMEN AND PELVIS WITH CONTRAST CLINICAL INFORMATION: R10.9 - Unspecified abdominal pain COMPARISON: None available. TECHNIQUE: Multidetector volumetric images were obtained from the superior aspect of the liver through the pubic symphysis following administration 85 mL of Omnipaque 350 intravenous contrast. Sagittal and coronal reformatted images were obtained on the technologist's workstation. Oral contrast: No This CT examination was performed using dose optimization techniques as appropriate, variously including the following: *Automated exposure control *Adjustment of mA and/or kV according to patient size (this includes techniques or standardized protocols for targeted exams where dose is matched to indication/reason for exam; i.e. extremities or head) *Use of iterative reconstruction technique FINDINGS: LUNG BASES: Clear LIVER, GALLBLADDER, AND BILIARY TREE: Mild diffuse fatty changes are present throughout the liver. The gallbladder is unremarkable with no evidence of radiopaque gallstones, gallbladder wall thickening, or obvious pericholecystic inflammatory changes. PANCREAS: Unremarkable. SPLEEN: Unremarkable. ADRENAL GLANDS: Unremarkable. KIDNEYS AND URETERS: 1 cm simple renal cyst is noted in the medial mid left kidney. BLADDER: Unremarkable. GASTROINTESTINAL TRACT: There are a few pseudodiverticula in the sigmoid colon. The appendix is mostly gas-filled and thin-walled. ABDOMINAL WALL: Small umbilical hernia contains adipose tissue. LYMPH NODES: Normal. VASCULAR: Unremarkable. PELVIC VISCERA: Unremarkable. OSSEOUS STRUCTURES: Unremarkable. CT/CT abdomen pelvis w IV con IMPRESSION: No acute findings to suggest a cause of the patient's abdominal pain. Hepatic steatosis. Fleischner guidelines were followed. Electronically signed by: Brayden Henderson MD 03/22/2025 12:00 PM [facility] Dictated By: Brayden Henderson MD Signed By: <Electronically signed by Brayden Henderson MD in OV> 03/22/25 1200 DD/ 1134 TD/TT: 03/22/25 1147 Drawbench Operator Helper: Procedure Note Donotuseinterpreter, Image - 03/22/[address] [address] [address] Scan Report Signed Patient: Darryl Gaspar#: [id number] : 1980Acct:[id number] Age/Sex: 45 / MADM Date: 03/22/25 Loc: HO.CT Attending Dr: Park Jolley [facility] Ordering Physician: Park Jolley [facility] Date of Service: 03/22/25 Procedure(s): CT abdomen pelvis w IV con Accession Number(s): [id number] cc: Ninfa Baez MD; Park Jolley [facility] Report Number: [id number]: Total DLP = 674.00 mGy-cm Reason for Exam: R10.9 - Unspecified abdominal pain EXAMINATION: CT ABDOMEN AND PELVIS WITH CONTRAST CLINICAL INFORMATION: R10.9 - Unspecified abdominal pain COMPARISON: None available. TECHNIQUE: Multidetector volumetric images were obtained from the superior aspect of the liver through the pubic symphysis following administration 85 mL of Omnipaque 350 intravenous contrast. Sagittal and coronal reformatted images were obtained on the technologist's workstation. Oral contrast: No This CT examination was performed using dose optimization techniques as appropriate, variously including the following: *Automated exposure control *Adjustment of mA and/or kV according to patient size (this includes techniques or standardized protocols for targeted exams where dose is matched to indication/reason for exam; i.e. extremities or head) *Use of iterative reconstruction technique FINDINGS: LUNG BASES: Clear LIVER, GALLBLADDER, AND BILIARY TREE: Mild diffuse fatty changes are present throughout the liver. The gallbladder is unremarkable with no evidence of radiopaque gallstones, gallbladder wall thickening, or obvious pericholecystic inflammatory changes. PANCREAS: Unremarkable. SPLEEN: Unremarkable. ADRENAL GLANDS: Unremarkable. KIDNEYS AND URETERS: 1 cm simple renal cyst is noted in the medial mid left kidney. BLADDER: Unremarkable. GASTROINTESTINAL TRACT: There are a few pseudodiverticula in the sigmoid colon. The appendix is mostly gas-filled and thin-walled. ABDOMINAL WALL: Small umbilical hernia contains adipose tissue. LYMPH NODES: Normal. VASCULAR: Unremarkable. PELVIC VISCERA: Unremarkable. OSSEOUS STRUCTURES: Unremarkable. CT/CT abdomen pelvis w IV con IMPRESSION: No acute findings to suggest a cause of the patient's abdominal pain. Hepatic steatosis. Fleischner guidelines were followed. Electronically signed by: Brayden Henderson MD 03/22/2025 12:00 PM EST Dictated By: Bradyen Henderson MD Signed By: <Electronically signed by Brayden Henderson MD in OV> 03/22/25 1200 DD/ 1134 TD/TT: 03/22/25 1147 Drawbench Operator Helper: [facility] External Provider IMG CT PROCEDURES Edited Result - Final * (ABNORMAL) VITAMIN D 25-OH (D2 AND D3) (03/08/2025 10:38 AM EDT) Vitamin D, 25-OH, D2 <4 ng/mL [facility] Comment:This test was develo ped and its analytical performancecharacteristics have been determined by [employer], [place]. It hasnot been cleared or approved by the U.S. Food and DrugAdministration. This assay has been validated pursuantto the CLIA regulations and is used for clinicalpurposes.THIS TEST WAS PERFORMED AT:[employer] [id number] [place] [address]KYQUJHLTATUM MILLER MD,PHD Vitamin D, 25-OH, D3 21 ng/mL [facility] Comment:This test was develo ped and its analytical performancecharacteristics have been determined by [employer] [place], [place]. It hasnot been cleared or approved by the U.S. Food and DrugAdministration. This assay has been validated pursuantto the CLIA regulations and is used for clinicalpurposes. Vitamin D, 25-OH, Total 21(A) 30 - 100 ng/mL [facility] Comment:Vitamin D, 25-Hydrox y reports [...] = 30 ng/mL.For additional information, please refer tohttp://education.Typesafe/faq/MHQ483(This link is being provided for informational/educational purposes only.) 03/08/2025 10:3 8 AM EDT 03/08/2025 10:38 AM EDT us Generic External Data Provider LAB BLOOD ORDERAB LES Final Result Performing Organization Address [facility] Co de Phone Number [facility] [address] [place] [phone] * Vitamin B12 (Cobalamin) and Folate Panel, Serum (03/08/2025 10:38 AM EDT) Vitamin B12 290 200 - 900 pg/mL [facility] Comment:NORMAL 200-900 PG/ML INDETERMINATE 160-199 PG/ML DEFICIENT < 160 PG/ML Folate 11.4 > or = 4.0 ng/mL [facility] Comment:Reference Values:> o r = 4.0 ng/mL< 4.0 ng/mL suggests folate deficiency Methotrexate, aminopterin and folinic acid(leucovorin) are chemotherapeutic agents whose molecularstructures are similar to folate; therefore, the Architectfolate assay cannot be used for patients using these drugs. 03/08/2025 10:3 8 AM EDT 03/08/2025 10:38 AM EDT Generic External Data Provider LAB BLOOD ORDERAB LES Final Result Performing Organization Address [facility] Co de Phone Number [facility] [address] [place] [phone] * Creatinine, Serum (03/08/2025 10:38 AM EDT) Creatinine, Serum 0.82 0.5 - 1.4 mg/dL [facility] Estimated Glomerular Filt Rate >60 [facility] Comment:Chronic Kidney Disea se: Estimated GFR < 60 mL/min/1.75l9Bjdajw Kidney Disease: Estimated GFR < 15 mL/min/1.73m2 03/08/2025 10:3 8 AM EDT 03/08/2025 10:38 AM EDT us Generic External Data Provider LAB BLOOD ORDERAB LES Final Result Performing Organization Address [facility]/ZIP Co de Phone Number [facility] [address] [place] [phone] * BUN (Blood Urea Nitrogen) (03/08/2025 10:38 AM EDT) Urea Nitrogen (BUN) 11 9 - 16 mg/dL [facility] 03/08/2025 10:3 8 AM EDT 03/08/2025 10:38 AM EDT Generic External Data Provider LAB BLOOD ORDERAB LES Final Result Performing Organization Address [facility] Co de Phone Number [facility] [address] [place] [phone] * FL Upper GI w/air w/Barium Swallow (03/08/2025 9:50 AM EDT) Anatomical Region Laterality Modality Body Radiographic Cheryl ging 03/08/2025 9:50 AM EDT Narrative 03/08/2025 11:06 AM EDT [address] [address] Fluoroscopy Report Signed Patient: Len Gaspar MR#: [id number] : 1980 Acct:[id number] Age/Sex: 45 / M ADM Date: 03/08/25 Loc: [facility] Attending Dr: Park Jolley SALES DEVELOPMENT DIRECTOR-BC Ordering Physician: Park Jolley [facility] Date of Service: 03/08/25 Procedure(s): FL upper GI w air w Ba Swallow Accession Number(s): [id number] cc: Ninfa Baez MD; Park Jolley [facility] Reason for Exam: K21.9 - Gastro-esophageal reflux disease without esophagitis EXAMINATION: XR UPPER GI SERIES WITH BARIUM SWALLOW. CLINICAL INFORMATION: Left lower chest pain. History of esophagitis and reflux disease. COMPARISON: None available. TECHNIQUE: Routine upper GI air contrast study in upright and lying position was performed. Thin barium was administered in right lateral decubitus view FINDINGS: Following oral administration of thick barium and effervescent granules there is normal propagation of bolus from the oral cavity through the pharynx, esophagus into stomach obstruction, narrowing or intraluminal filling defect. No extrinsic compression seen. On placing patient supine and prone lying there is mild increased gastric sleeve patient's without gastric erosions or ulcerations. On oral administration of thin barium in the right lateral decubitus view there is good distention of the entire esophagus without any intraluminal defect or obstruction. The gastroesophageal junction is widely patent. No reflux could be demonstrated. There is no hiatal hernia. FLUOROSCOPY TIME: 1 minute 53 seconds DOSE AREA PRODUCT: 2920 uGy-m2 (microgray-meter squared) FL/FL upper GI w air w Ba Swallow IMPRESSION: Unremarkable upper GI air contrast study with esophagram. Electronically signed by: Otis Velasquez MD 03/08/2025 11:03 AM EDT Dictated By: Otis Velasquez MD Signed By: <Electronically signed by Otis Velasquez MD in OV> 03/08/25 1103 DD/ 0950 TD/TT: 03/08/25 1005 Drawbench Operator Helper: [facility] Procedure Note Donotuseinterpreter, Image - 03/08/2025 [place] [address] Fluoroscopy Report Signed Patient: Nicholas GasparAugustus#: [id number] : 1980Acct:[id number] Age/Sex: 45 / MADM Date: 03/08/25 Loc: HO.XRAY Attending Dr: Park Jolley [facility] Ordering Physician: Park Jolley Date of Service: 03/08/25 Procedure(s): FL upper GI w air w Ba Swallow Accession Number(s): [id number] cc: Ninfa Baez MD; Park Jolley [facility] Reason for Exam: K21.9 - Gastro-esophageal reflux disease withoutesophagitis EXAMINATION: XR UPPER GI SERIES WITH BARIUM SWALLOW. CLINICAL INFORMATION: Left lower chest pain. History of esophagitis and reflux disease. COMPARISON: None available. TECHNIQUE: Routine upper GI air contrast study in upright and lying position was performed. Thin barium was administered in right lateral decubitus view FINDINGS: Following oral administration of thick barium and effervescent granules there is normal propagation of bolus from the oral cavity through the pharynx, esophagus into stomach obstruction, narrowing or intraluminal filling defect. No extrinsic compression seen. On placing patient supine and prone lying there is mild increased gastric sleeve patient's without gastric erosions or ulcerations. On oral administration of thin barium in the right lateral decubitus view there is good distention of the entire esophagus without any intraluminal defect or obstruction. The gastroesophageal junction is widely patent. No reflux could be demonstrated. There is no hiatal hernia. FLUOROSCOPY TIME: 1 minute 53 seconds DOSE AREA PRODUCT: 2920 uGy-m2 (microgray-meter squared) FL/FL upper GI w air w Ba Swallow IMPRESSION: Unremarkable upper GI air contrast study with esophagram. Electronically signed by: Otis Velasquez MD 03/08/2025 11:03 AM EDT Dictated By: Otis Velasquez MD Signed By: <Electronically signed by Otis Velasquez MD in OV> 03/08/25 1103 DD/ 0950 TD/TT: 03/08/25 1005 Drawbench Operator Helper: [facility] Exter nal Provider IMG FLUOROSCOPY PROCEDURES Edited Result - Final * (ABNORMAL) Lipid Panel, Standard (08/20/2023 2:08 PM EDT) Triglycerides 481(H) <150 mg/dL [facility] Comment:Desirable Triglyceri de: less than 150 mg/dLBorderline High Triglyceride 150-199 mg/dLHigh Triglyceride: 200-499 mg/dLVery High Triglyceride: greater than or equal to 5OO mg/dL Cholesterol 174 <200 mg/dL [facility] Comment:Desirable Cholestero l: less than 200 mg/dLBorderline High Cholesterol: 200-239 mg/dLHigh Cholesterol: greater than 239 mg/dL LDL Cholesterol Calculated TNP <100 mg/dL [facility] Comment:Unable to calculate the LDL. The formula of Friedwald,Brown, and Oni is only valid if the triglycerides areless than 400 mg/dl. HDL Cholesterol 32(L) >40 mg/dL [facility] Comment:Desirable HDL: great er than 40 mg/dL Note: This HDL assay may give artificially low results in patients with liver disease. Blood Venous blood specimen / Unknown 08/20/2023 2:08 PM EDT 08/20/2023 6:56 PM EDT us Ninfa Dwyer MD LAB BLOOD ORDERABLES Final Result Performing Organization Address [facility]/ZIP Co de Phone Number [facility] [address] [place] [phone] * Hepatitis C Antibody with Reflex to HCV, RNA, Quantitative, Real-Time PCR (07/15/2023 11:47 AM EST) Hepatitis C Antibody Nonreactive Nonreactive [facility] Comment:Antibodies to HCV no t detected; does not exclude early acuteHCV infection. Blood Venous blood specimen / Unknown 07/15/2023 11:47 AM EST 07/15/2023 1:24 PM EST us Ninfa Dwyer MD LAB BLOOD ORDERABLES Final Result Performing Organization Address [facility] Co de Phone Number [facility] [address] [place] [phone] * HIV-1/2 Antigen and Antibodies, Fourth Generation, with Reflexes (07/15/2023 11:47 AM EST) HIV AB/AG Nonreactive Nonreactive [facility] Comment:HIV-1 p24 Ag and/or HIV-1/HIV-2 Ab not detected.A test result that is nonreactive does not exclude thepossibility of exposure to or infection with HIV-1 and/orHIV-2. Nonreactive results in this assay for individualswith prior exposure to HIV-1 and/or HIV-2 may be due toantigen and antibody levels that are below the limit ofdetection of this assay.The Newsy HIV Ag/Ab Combo assay result andsupplemental assay results should be interpreted inconjunction with the patient's clinical presentation,history and other laboratory results. If the results areinconsistent with clinical evidence, additional testing issuggested to confirm the result. Blood Venous blood specimen / Unknown 07/15/2023 11:47 AM EST 07/15/2023 1:24 PM EST us Ninfa Dwyer MD LAB BLOOD ORDERABLES Final Result [facility] [address] [place] [phone] from Last 3 Months or Most Recently Relevant to Health Maintenance Insurance [facility] C3 HSN PARTIAL Care Teams Crop Grain Or Livestock Farmer Relationship Specialty Start Date End Date Ninfa Baez MD [address] [place] [address] PCP - General Family Medicine 08/30/21
--- OUTSIDE RECORDS SUMMARY | 2025-03-22 14:20 | XMS_ITS | Clinical Summary ---
Author Organization [facility] it[facility] Address [address] [place] [address] Care Team Providers Care Resin Coater Name Role Phone Unavailable Primary Care Provider [...]
== END 2025-03-22 11:19 | disposition home or self-care (01) ==
LOC: HO.CT 11:18
PROVIDERS: PCP Internal Medicine; Visit Provider Nurse Practitioner Family
DX: R10.12 Left upper quadrant pain (principal)
CPT/HCPCS: 74177; Q9967

== ENCOUNTER → 2025-03-22 11:20 | Outpatient (BNV) | payer MEDICAID, SELFPAY | PROVIDERS: PCP Internal Medicine; Visit Provider Radiology Diagnostic Radiology | DX: K76.0 Fatty (change of) liver, not elsewhere classified (principal) | CPT/HCPCS: 74177 ==